=== PATIENT | female | born 1965 | race American Indian/Alaskan Native ===

== ENCOUNTER 2018-07-16 07:20 | Inpatient (IN) | payer MEDICARE ==
[2018-07-16] MEDS ORDERED: NORMODYNE IV ONE ×2 (07:35)
--- NOTE | 2018-07-16 07:37 | Emergency Department Report ---
ED Neuro Deficit HPI - General Stated Complaint: STEMI medics concerned about EKG states GCS is 9 on radio Time Seen by Provider: 07/16/18 07:33 - History of Present Illness Initial Comments: This is a 53-year-old female with a history of insulin dependent diabetes and hypertension but no prior stroke. At 4 in the morning she came down and informed her family that her left tongue and inside of her face felt numb. Thereafter she went to sleep. She had woken up at that time. The time of onset is uncertain. Prior to arrival the patient had stuttering speech and was confused. Medics stated that her pulse oximetry was 80% on their arrival. She was extremely hypertensive. They stated on the radio that her GCS was 9. However, the medics reported that the patient was opening her eyes spontaneously and that she did respond to command and speech. They amended there reported chest stating that she was "altered". I do not think there was a possibility of a GCS of 9. Their main concern appeared to rotate about an EKG shows LVH and J- point elevation. There is no STEMI criteria. Patient was found to have a spot glucose of over 400. Family states that they think the patient took her insulin this morning. They believe that she is compliant with her medicine. However the daughter does not know what medicine she takes. Other than diabetes and hypertension the daughter denied any other medical history or history of stroke. -: During the night Location: left face Presenting Symptoms: Present: Unable to Speak Clearly History of same: No Place: home Severity: moderate Quality: other Improves With: none Worsens With: none On Anticoagulants: No Context: other Associated Symptoms: denies other symptoms (patient is not voicing any active complaints) Treatments Prior to Arrival: other (given aspirin and nitroglycerin by medics) - Related Data Allergies/Adverse Reactions: Allergies Allergy/AdvReac Type Severity Reaction Status Date / Time No Known Allergies Allergy Unverified 07/16/18 07:34 ED Review of Systems ROS: Stated complaint: STEMI Other details as noted in HPI Comment: Unobtainable due to pts medical conditions (patient voicing no complaint however does not complain of headache or other pain. Limited review.) ED Past Medical Hx - Past Medical History Hx Hypertension: Yes Hx Diabetes: Yes - Family History Family history: other (unknown) - Social History Smoking Status: Unknown if ever smoked Substance Use Type: Other (unknown) ED Neuro Physical Exam - General Limitations: Altered Mental Status General appearance: alert, in no apparent distress Suspected Stroke: Yes (stroke is a possibility. Hypertensive encephalopathy is a possibility. Differential diagnosis is wide.) - Head Head exam: Present: atraumatic, normocephalic - Eye Eye exam: Present: normal appearance - ENT ENT exam: Present: mucous membranes moist - Neck Neck exam: Present: normal inspection. Absent: tenderness, meningismus - Respiratory Respiratory exam: Present: normal lung sounds bilaterally. Absent: respiratory distress - Cardiovascular Cardiovascular Exam: Present: regular rate, normal rhythm. Absent: systolic murmur, diastolic murmur, rubs, gallop - GI/Abdominal GI/Abdominal exam: Present: soft, normal bowel sounds. Absent: distended, tenderness, guarding, rebound, rigid - Extremities Exam Extremities exam: Present: normal inspection. Absent: pedal edema, calf tenderness - Back Exam Back exam: Present: normal inspection. Absent: CVA tenderness (R), CVA tenderness (L) - Neurological Exam Neurological exam: Present: alert, oriented X3, CN II-XII intact. Absent: motor sensory deficit - NIHSS Assessment Interval: Baseline 1a. Level of Consciousness: alert/keenly responsive 1b. LOC Questions: answers no questions correctly 1c. LOC Commands: performs tasks correctly 2. Best Gaze: normal 3. Visual: no visual loss 4. Facial Palsy: normal symmetrical movement 5b. Motor Arm Right: no drift 5a. Motor Arm Left: no drift 6a. Motor Leg Left: no drift 6b. Motor Leg Right: no drift 7. Limb Ataxia: absent 8. Sensory: normal 9. Best Language: mild/moderate aphasia 10. Dysarthria: normal 11. Extinction/Inattention: no abnormality Total Score: 3 Stroke Severity: Minor Stroke - Psychiatric Psychiatric exam: Present: normal affect, normal mood - Skin Skin exam: Present: warm, dry, intact, normal color. Absent: rash ED Course Vital Signs 07/16/18 07/16/18 07/16/18 07:29 07:30 07:35 Temperature Pulse Rate 77 Respiratory Rate Blood Pressure 142/112 O2 Sat by Pulse 100 100 Oximetry 07/16/18 07/16/18 07/16/18 07:45 07:50 08:00 Temperature 98.5 F Pulse Rate 74 74 Respiratory 16 22 Rate Blood Pressure 242/112 242/119 226/111 O2 Sat by Pulse 96 97 96 Oximetry 07/16/18 08:16 Temperature Pulse Rate 79 Respiratory 22 Rate Blood Pressure 232/121 O2 Sat by Pulse 97 Oximetry - Reevaluation(s) Reevaluation #1: I spoke with the stroke neurologist Dr. Jameson. He agrees that the patient likely has a hypertensive encephalopathy. He agrees that the patient is not a TPA candidate. Consult Dr. Groves ICU attending. Admit to hospitalist service. 07/16/18 08:44 Reevaluation #2: Spoke with hospitalist admit ICU page nephrology. Patient will be given a small dose of IV insulin. He do not think she is in DKA. I do not have a baseline creatinine. Further care in the intensive care unit. Sushant reece. 07/16/18 09:02 07/16/18 09:03 - Lab Data Result diagrams: 07/16/18 07:48 07/16/18 08:18 Lab Results 07/16/18 07/16/18 07/16/18 Range/Units 07:35 07:48 07:48 WBC 7.9 (4.5-11.0) K/mm3 RBC 4.27 (3.65-5.03) M/mm3 Hgb 13.1 (10.1-14.3) gm/dl Hct 39.9 (30.3-42.9) % MCV 93 (79-97) fl MCH 31 (28-32) pg MCHC 33 (30-34) % RDW 13.7 (13.2-15.2) % Plt Count 242 (140-440) K/mm3 Lymph % (Auto) 26.0 (13.4-35.0) % Pitkin % (Auto) 4.6 (0.0-7.3) % Eos % (Auto) 0.8 (0.0-4.3) % Baso % (Auto) 0.9 (0.0-1.8) % Lymph # 2.0 (1.2-5.4) K/mm3 Pitkin # 0.4 (0.0-0.8) K/mm3 Eos # 0.1 (0.0-0.4) K/mm3 Baso # 0.1 (0.0-0.1) K/mm3 Seg Neutrophils % 67.7 (40.0-70.0) % Seg Neutrophils # 5.3 (1.8-7.7) K/mm3 PT 12.5 (12.2-14.9) Sec. INR 0.90 (0.87-1.13) APTT 20.3 L (24.2-36.6) Sec. Thrombin Time 17.4 (15.1-19.6) Sec. Sodium (137-145) mmol/L Potassium (3.6-5.0) mmol/L Chloride (98-107) mmol/L Carbon Dioxide (22-30) mmol/L Anion Gap mmol/L BUN (7-17) mg/dL Creatinine (0.7-1.2) mg/dL Estimated GFR ml/min BUN/Creatinine Ratio % Glucose (65-100) mg/dL POC Glucose 430 H (70-105) Calcium (8.4-10.2) mg/dL Magnesium (1.7-2.3) mg/dL Total Bilirubin (0.1-1.2) mg/dL Direct Bilirubin (0-0.2) mg/dL Indirect Bilirubin mg/dL AST (5-40) units/L ALT (7-56) units/L Alkaline Phosphatase (35-129) units/L CK-MB (CK-2) (0.0-4.0) ng/mL Troponin T (0.00-0.029) ng/mL NT-Pro-B Natriuret Pep (0-900) pg/mL Total Protein (6.3-8.2) g/dL Albumin (3.9-5) g/dL Albumin/Globulin Ratio % 07/16/18 Range/Units 08:18 WBC (4.5-11.0) K/mm3 RBC (3.65-5.03) M/mm3 Hgb (10.1-14.3) gm/dl Hct (30.3-42.9) % MCV (79-97) fl MCH (28-32) pg MCHC (30-34) % RDW (13.2-15.2) % Plt Count (140-440) K/mm3 Lymph % (Auto) (13.4-35.0) % Pitkin % (Auto) (0.0-7.3) % Eos % (Auto) (0.0-4.3) % Baso % (Auto) (0.0-1.8) % Lymph # (1.2-5.4) K/mm3 Pitkin # (0.0-0.8) K/mm3 Eos # (0.0-0.4) K/mm3 Baso # (0.0-0.1) K/mm3 Seg Neutrophils % (40.0-70.0) % Seg Neutrophils # (1.8-7.7) K/mm3 PT (12.2-14.9) Sec. INR (0.87-1.13) APTT (24.2-36.6) Sec. Thrombin Time (15.1-19.6) Sec. Sodium 139 (137-145) mmol/L Potassium 4.9 (3.6-5.0) mmol/L Chloride 104.4 (98-107) mmol/L Carbon Dioxide 20 L (22-30) mmol/L Anion Gap 20 mmol/L BUN 42 H (7-17) mg/dL Creatinine 5.2 H (0.7-1.2) mg/dL Estimated GFR 9 ml/min BUN/Creatinine Ratio 8 % Glucose 479 H (65-100) mg/dL POC Glucose (70-105) Calcium 8.7 (8.4-10.2) mg/dL Magnesium 1.40 L (1.7-2.3) mg/dL Total Bilirubin 0.20 (0.1-1.2) mg/dL Direct Bilirubin < 0.2 (0-0.2) mg/dL Indirect Bilirubin 0.0 mg/dL AST 9 (5-40) units/L ALT 8 (7-56) units/L Alkaline Phosphatase 112 (35-129) units/L CK-MB (CK-2) 2.6 (0.0-4.0) ng/mL Troponin T < 0.010 (0.00-0.029) ng/mL NT-Pro-B Natriuret Pep 5728 H (0-900) pg/mL Total Protein 6.7 (6.3-8.2) g/dL Albumin 2.9 L (3.9-5) g/dL Albumin/Globulin Ratio 0.8 % Laboratory Results - last 24 hr 07/16/18 07/16/18 07/16/18 07:35 07:48 07:48 WBC 7.9 RBC 4.27 Hgb 13.1 Hct 39.9 MCV 93 MCH 31 MCHC 33 RDW 13.7 Plt Count 242 Lymph % (Auto) 26.0 Pitkin % (Auto) 4.6 Eos % (Auto) 0.8 Baso % (Auto) 0.9 Lymph # 2.0 Pitkin # 0.4 Eos # 0.1 Baso # 0.1 Seg Neutrophils % 67.7 Seg Neutrophils # 5.3 PT 12.5 INR 0.90 APTT 20.3 L Thrombin Time 17.4 POC Glucose 430 H Laboratory Results - last 24 hr 07/16/18 07/16/18 07/16/18 07:35 07:48 07:48 WBC 7.9 RBC 4.27 Hgb 13.1 Hct 39.9 MCV 93 MCH 31 MCHC 33 RDW 13.7 Plt Count 242 Lymph % (Auto) 26.0 Pitkin % (Auto) 4.6 Eos % (Auto) 0.8 Baso % (Auto) 0.9 Lymph # 2.0 Pitkin # 0.4 Eos # 0.1 Baso # 0.1 Seg Neutrophils % 67.7 Seg Neutrophils # 5.3 PT 12.5 INR 0.90 APTT 20.3 L Thrombin Time 17.4 POC Glucose 430 H Critical Care Time: Yes Critical care time in (mins) excluding proc time.: 60 Critical care attestation.: If time is entered above; I have spent that time in minutes in the direct care of this critically ill patient, excluding procedure time. ED Disposition Clinical Impression: Hypertensive encephalopathy, Malignant hypertension, Acute renal injury, Renal insufficiency, Insulin dependent diabetes mellitus Disposition: OP ADMIT IP TO THIS HOSP Is pt being admited?: Yes Does the pt Need Aspirin: Yes Condition: Stable Instructions: Hypertension (ED), Diabetes Mellitus Type 2 in Adults (ED) Time of Disposition: 09:04
--- NOTE | 2018-07-16 07:49 | Cat Scan Report ---
CT HEAD WITHOUT CONTRAST: HISTORY: Neurological deficit, stroke. TECHNIQUE: Sequential 2.5mm CT images. COMPARISON: none. FINDINGS: Cerebral Parenchyma: There is mild hypoattenuation throughout the white matter consistent with nonspecific chronic small vessel disease. A subcentimeter focal chronic infarct is identified in the left rendon radiata on image 41. The remainder of the brain parenchyma is within normal limits. Cerebellum: Within normal limits. Brainstem: Within normal limits. Ventricles: Normal. Sella: Normal. Extra-axial spaces: Normal. Basal Cisterns: Normal. Intracranial Hemorrhage: None. Midline Shift: None. Calvarium: Normal. Sinuses: Normal. Mastoid Air Cells: Normal. Visualized Orbits: Normal. IMPRESSION: Mild nonspecific chronic white matter changes. Chronic focal infarcts in the left rendon radiata. No acute intracranial process identified. These findings were discussed with Dr. Leigh in the emergency department at 0743 hours.
--- NOTE | 2018-07-16 07:56 | XRay Report ---
AP CHEST: HISTORY: Hypertension Borderline to mild cardiomegaly is suspected. Central pulmonary vessels are slightly prominent. The lungs are clear. No evidence for pneumonia, pleural fluid or pneumothorax. The bony structures are within normal limits. IMPRESSION: Borderline heart size. Lungs clear.
[2018-07-16 08:02] LABS: Basophils # (Auto) 0.1 K/mm3 (0.0-0.1); Basophils % (Auto) 0.9 % (0.0-1.8); Eosinophils # (Auto) 0.1 K/mm3 (0.0-0.4); Eosinophils % (Auto) 0.8 % (0.0-4.3); Hematocrit 39.9 % (30.3-42.9); Hemoglobin 13.1 gm/dl (10.1-14.3); Mean Corpuscular HGB Conc 33 % (30-34); Mean Corpuscular Volume 93 fl (79-97); Monocytes # (Auto) 0.4 K/mm3 (0.0-0.8); Monocytes % (Auto) 4.6 % (0.0-7.3); Platelet Count 242 K/mm3 (140-440); Red Blood Count 4.27 M/mm3 (3.65-5.03); Red Cell Distribution Width 13.7 % (13.2-15.2)
[2018-07-16 08:12] LABS: INR 0.9 (0.87-1.13); Partial Thromboplastin Time 20.3 Sec. (24.2-36.6)
[2018-07-16 08:13] LABS: Thrombin Time 17.4 Sec. (15.1-19.6)
[2018-07-16 08:55] LABS: Creatine Kinase MB 2.6 ng/mL (0.0-4.0)
[2018-07-16 08:57] LABS: Alanine Aminotransferase 8 units/L (7-56); Albumin 2.9 g/dL (3.9-5); BUN/Creatinine Ratio 8; Blood Urea Nitrogen 42 mg/dL (7-17); Calcium 8.7 mg/dL (8.4-10.2); Hemolysis Index 14
[2018-07-16 08:58] LABS: Bilirubin,Direct < 0.2 mg/dL (0-0.2)
[2018-07-16] MEDS ORDERED: ASPIRIN PO ONE (09:05)
[2018-07-16] MEDS ORDERED: HumuLIN R IV ONE (09:07)
[2018-07-16] MEDS: CARDENE 50 MG in NACL 0.9% 250ML 230 ML IV SCH (09:35)
[2018-07-16] MEDS ORDERED: HumuLIN R ONE (10:43)
[2018-07-16] MEDS ORDERED: ASPIRIN ONE (10:43)
[2018-07-16] MEDS ORDERED: MAGNESIUM SULFATE IV ONE (10:51)
--- NOTE | 2018-07-16 10:54 | History and Physical Report ---
History of Present Illness Date of examination: 07/16/18 Date of admission: 07/16/18 09:06 Chief complaint: AMS History of present illness: This is a 53-year-old -[place] female with a past medical history of hypertension, diabetes on insulin, and renal cell carcinoma status post right total nephrectomy in 2013, follows nephrology at [facility], presented to the emergency room department secondary to altered mental status, difficulty in speech, and perioral numbness associated with elevated blood pressure. In the ER CT scan of the head did not show any acute abnormalities. Per daughter patient does not take her medication on regular basis. 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 She was started on Cardene drip in the ER, her mental status has improved back to baseline and she is able to answer questions during examination and does not have any focal deficit. She is being admitted for further evaluation and management. . Past History Past Medical History: diabetes, hypertension, hyperlipidemia, renal failure Past Surgical History: Other (right nephrectomy ) Social history: no significant social history, lives with family Family history: diabetes, hypertension Medications and Allergies Allergies Allergy/AdvReac Type Severity Reaction Status Date / Time No Known Allergies Allergy Unverified 07/16/18 07:34 Home Medications Medication Instructions Recorded Confirmed Last Taken Type Calcitriol [Rocaltrol] 0.25 mcg PO DAILY 07/16/18 07/16/18 Unknown History Insulin Detemir [Levemir VIAL] 15 unit SQ QHS 07/16/18 07/16/18 Unknown History Lispro Insulin [Humalog] 10 unit SQ DAILY 07/16/18 07/16/18 Unknown History Metoprolol Succinate [Toprol Xl] 200 mg PO DAILY 07/16/18 07/16/18 Unknown History NIFEdipine [Nifedipine ER] 60 mg PO DAILY 07/16/18 07/16/18 Unknown History Spironolactone [Aldactone] 50 mg PO QDAY 07/16/18 07/16/18 Unknown History Active Meds: Active Medications Nicardipine HCl 50 mg/ Sodium (Chloride) 250 mls @ 25 mls/hr IV TITR KJ; Protocol Last Admin: 07/16/18 09:35 Dose: 5 mg/hr, 25 mls/hr Documented by: Magnesium Sulfate (Magnesium Sulfate) 1 gm IV ONCE ONE Stop: 07/16/18 10:52 Review of Systems Constitutional: fatigue, no weight loss, no fever, no chills, no anorexia Ears, nose, mouth and throat: no ear discharge, no decreased hearing, no nasal congestion, no nasal discharge, no epistaxis Cardiovascular: no chest pain, no orthopnea, no palpitations, no lightheadedness Respiratory: no cough, no dyspnea on exertion Gastrointestinal: no abdominal pain, no nausea, no vomiting, no diarrhea, no hematochezia Genitourinary Female: no pelvic pain, no flank pain, no menorrhagia, no urinary frequency, no urgency Rectal: no pain Musculoskeletal: no neck pain, no low back pain Integumentary: no rash Neurological: change in speech, confusion Psychiatric: no anxiety, no memory loss Endocrine: no cold intolerance, no heat intolerance Hematologic/Lymphatic: no easy bruising, no easy bleeding Allergic/Immunologic: no urticaria, no allergic rhinitis Exam - Physical Exam Narrative exam: General appearance: well-developed, well-nourished, appears stated age EENT: ATNC, PERRL Neck: Present: neck supple, trachea midline Respiratory: Clear to Ascultation, Normal Exam Heart: regular, S1S2 Gastrointestinal: Present: normal, normoactive bowel sounds Integumentary: no rash, warm and dry Neurologic: no focal deficit, no asterixis, alert and oriented x3 Musculoskeletal: Present: other (-edema ) Psychiatric: mood/affect appropriate, cooperative - Constitutional Vitals: Temp Pulse Resp BP Pulse Ox 98.5 F 87 22 178/89 95 07/16/18 07:45 07/16/18 09:45 07/16/18 09:45 07/16/18 09:45 07/16/18 09:45 Results - Labs CBC & Chem 7: 07/17/18 04:49 07/17/18 04:49 Labs: Abnormal lab results 07/16/18 07/16/18 07/16/18 Range/Units 07:35 07:48 08:18 APTT 20.3 L (24.2-36.6) Sec. Carbon Dioxide 20 L (22-30) mmol/L BUN 42 H (7-17) mg/dL Creatinine 5.2 H (0.7-1.2) mg/dL Glucose 479 H (65-100) mg/dL POC Glucose 430 H (70-105) Magnesium 1.40 L (1.7-2.3) mg/dL NT-Pro-B Natriuret Pep 5728 H (0-900) pg/mL Albumin 2.9 L (3.9-5) g/dL Assessment and Plan Hypertensive encephalopathy - mental status now back to baseline, CT head unremarkable, cont to monitor BP Malignant HTN (BP 242/119 - POA) - wean off cadene drip as tolerated to keep SBP 160- 180 - resume home meds DM type 2 uncontrolled with hyperglycemia - Iv fluid, SSI and place on lentus home dose HLD, start on statin h/o renal cancer s/p right nephrectomy - order renal US, supportive care KYLEIGH on CKD stage 4/5 - monitor renal function, hold nephrotoxins, consulted renal DVT Px, heparin The high probability of a clinically significant, sudden or life threatening deterioration of the [CVS, renal] system(s) required my full and direct attention, intervention and personal management. The aggregate critical care time was [42] minutes. This time is in addition to time spent performing reported procedures but includes the following: [x] Data Review and interpretation [x] Patient assessment and monitoring of vital signs [x] Documentation [x] Medication orders and management
[2018-07-16] MEDS ORDERED: NACL 0.9% IV SCH (11:00)
[2018-07-16] MEDS ORDERED: MAGNESIUM SULFATE 1 GM in NACL 0.9% 50 ML IV ONE (11:00)
[2018-07-16 11:13] LABS: Bacteria,Urine 1+ /HPF (Negative); Bilirubin,Urine NEG (Negative); Blood,Urine NEG (Negative); Color,Urine Straw (Yellow); Protein,Urine >2000 mg dL mg/dL (Negative); Urobilinogen,Urine < 2.0 mg/dL (<2.0); WBC,Urine < 1.0 /HPF (0.0-6.0)
[2018-07-16 11:15] LABS: Amphetamine Screen,Urine PRESUMPTIVE NEGATIVE; Benzodiazepines Screen,Urine PRESUMPTIVE NEGATIVE; Cannabinoid Screen,Urine PRESUMPTIVE NEGATIVE; Cocaine Screen,Urine PRESUMPTIVE NEGATIVE; Methadone Screen,Urine PRESUMPTIVE NEGATIVE; Opiate Screen,Urine PRESUMPTIVE NEGATIVE
--- NOTE | 2018-07-16 11:24 | Consultation ---
History of Present Illness - Reason for Consult acute renal failure, chronic renal failure, accelerated hypertension - History of Present Illness This is a very pleasant 53-year-old -Ang[place] female with a past medical history of hypertension, diabetes, and apparent renal cell carcinoma status post right total nephrectomy in 2013 per patient, who does see nephrology at [facility], presented to the emergency room department secondary to altered mental status, dysarthria, and perioral numbness associated with accelerated hypertension. She is being treated for hypertensive emergency and encephalopathy, and is currently on Cardene drip. Her altered mental status has improved back to baseline and sh cassi is able to answer questions during examination. CT scan of the head did not show any acute abnormalities. Nephrology is being asked to see patient for her acute kidney injury. Per patient she has had previous discussion of initiating dialysis in the near future with her drill press set up operator. She unfortunately does not remember the name of the drill press set up operator that she was seen at [facility]. She states that she last saw her drill press set up operator less than 1 month ago. In regards to her blood pressure control she unfortunately has been missing doses of her medication. She also is on chronic insulin therapy for diabetic control. Past History Past Medical History: diabetes, hypertension, hyperlipidemia, renal failure Past Surgical History: Other (right nephrectomy ) Social history: no significant social history, lives with family Family history: diabetes, hypertension Medications and Allergies Allergies Allergy/AdvReac Type Severity Reaction Status Date / Time No Known Allergies Allergy Unverified 07/16/18 07:34 Home Medications Medication Instructions Recorded Confirmed Last Taken Type Calcitriol [Rocaltrol] 0.25 mcg PO DAILY 07/16/18 07/16/18 Unknown History Insulin Detemir [Levemir VIAL] 15 unit SQ QHS 07/16/18 07/16/18 Unknown History Lispro Insulin [Humalog] 10 unit SQ DAILY 07/16/18 07/16/18 Unknown History Metoprolol Succinate [Toprol Xl] 200 mg PO DAILY 07/16/18 07/16/18 Unknown History NIFEdipine [Nifedipine ER] 60 mg PO DAILY 07/16/18 07/16/18 Unknown History Spironolactone [Aldactone] 50 mg PO QDAY 07/16/18 07/16/18 Unknown History Active Meds: Active Medications Nicardipine HCl 50 mg/ Sodium (Chloride) 250 mls @ 25 mls/hr IV TITR KJ; Protocol Last Admin: 07/16/18 09:35 Dose: 5 mg/hr, 25 mls/hr Documented by: Magnesium Sulfate 1 gm/ Sodium (Chloride) 52 mls @ 52 mls/hr IV ONCE ONE Stop: 07/16/18 11:59 Sodium Chloride (Nacl 0.9%) 0 ml IV DIRECT KJ Review of Systems All systems: negative Constitutional: fatigue, weakness Cardiovascular: high blood pressure Neurological: change in speech, change in mentation, confusion Exam - Vital Signs Vital signs: Vital Signs Pulse Ox 100 07/16/18 07:29 - General Appearance General appearance: well-developed, well-nourished, appears stated age EENT: ATNC, PERRL Neck: Present: neck supple, trachea midline Respiratory: Clear to Ascultation, Normal Exam Heart: regular, S1S2 Gastrointestinal: Present: normal, normoactive bowel sounds Integumentary: no rash, warm and dry Neurologic: no focal deficit, no asterixis, alert and oriented x3 Musculoskeletal: Present: other (-edema ) Psychiatric: mood/affect appropriate, cooperative Results - Lab Results 07/16/18 07:48 07/16/18 08:18 Most recent lab results Calcium 8.7 mg/dL (8.4-10.2) 07/16/18 08:18 Magnesium 1.40 mg/dL (1.7-2.3) L 07/16/18 08:18 - Image Kidney/bladder ultrasound: pending Assessment and Plan - Patient Problems (1) Acute on chronic kidney failure Current Visit: Yes Status: Acute Plan to address problem: Patient has acute on chronic kidney disease secondary to hypertensive emergency and malignant hypertension. Will obtain renal ultrasound at this time and will also order urine electrolytes studies. Also ordered urinalysis for further evaluation. Avoid nephrotoxins. Monitor renal function daily. No acute indications for hemodialysis at present time. Need to strictly monitor her intake and urine output at this time. (2) Hypertensive encephalopathy Current Visit: Yes Status: Acute Plan to address problem: Mental status has improved at this time since admission. CT scan of head noted without any acute abnormalities. We'll continue to monitor. (3) Malignant hypertension Current Visit: Yes Status: Acute Plan to address problem: Currently on Cardene drip. Once stable will favor to transition back to oral antihypertensive therapy. (4) Metabolic acidosis Current Visit: Yes Status: Acute Plan to address problem: We'll start patient on sodium bicarbonate tablets 1 pill by mouth 3 times a day with meals. (5) Insulin dependent diabetes mellitus Current Visit: Yes Status: Acute Plan to address problem: Diabetes management per primary team.
--- NOTE | 2018-07-16 12:21 | Ultrasound Report ---
ULTRASOUND RENAL BILATERAL HISTORY: Acute renal insufficiency, hypertension. TECHNIQUE: transabdominal ultrasound with color Doppler interrogation. COMPARISON: none. FINDINGS: Patient reports a history of right nephrectomy in 2013. The right kidney is not identified. The left kidney measures 9.6 x 5.0 x 4.8cm. Left renal cortex: 1.6cm. The left kidney is normal size, contour and position. There is increased renal cortical echotexture bilaterally consistent with nonspecific renal parenchymal disease. Corticomedullary differentiation is preserved. No evidence for cystic disease, mass, nephrolithiasis, hydronephrosis or perinephric fluid. The views of the bladder and the region of the ureters appear normal. IMPRESSION: Right nephrectomy. The left kidney is normal size but demonstrates mild increased cortical echotexture consistent with nonspecific renal parenchymal disease. No focal left renal lesion or hydronephrosis.
--- NOTE | 2018-07-16 12:58 | Consultation ---
History of Present Illness - Reason for Consult Consult date: 07/16/18 Hypertensive Emergency Requesting physician: MARCO GREY - History of Present Illness 53 y/o female with history of noncompliance with medical therapy admitted for altered mental state and hypertensive emergency. Past History Past Medical History: diabetes, hypertension, hyperlipidemia, renal failure Past Surgical History: Other (right nephrectomy ) Social history: no significant social history, lives with family Family history: diabetes, hypertension Medications and Allergies Allergies Allergy/AdvReac Type Severity Reaction Status Date / Time No Known Allergies Allergy Unverified 07/16/18 07:34 Home Medications Medication Instructions Recorded Confirmed Last Taken Type Calcitriol [Rocaltrol] 0.25 mcg PO DAILY 07/16/18 07/16/18 Unknown History Insulin Detemir [Levemir VIAL] 15 unit SQ QHS 07/16/18 07/16/18 Unknown History Lispro Insulin [Humalog] 10 unit SQ DAILY 07/16/18 07/16/18 Unknown History Metoprolol Succinate [Toprol Xl] 200 mg PO DAILY 07/16/18 07/16/18 Unknown History NIFEdipine [Nifedipine ER] 60 mg PO DAILY 07/16/18 07/16/18 Unknown History Spironolactone [Aldactone] 50 mg PO QDAY 07/16/18 07/16/18 Unknown History Active Meds: Active Medications Nicardipine HCl 50 mg/ Sodium (Chloride) 250 mls @ 25 mls/hr IV TITR KJ; Protocol Last Admin: 07/16/18 09:35 Dose: 5 mg/hr, 25 mls/hr Documented by: Sodium Chloride (Nacl 0.9%) 0 ml IV DIRECT KJ Review of Systems All systems: negative Exam - Constitutional Vitals: Temp Pulse Resp BP Pulse Ox 98.5 F 86 22 157/87 92 07/16/18 10:54 07/16/18 12:16 07/16/18 12:16 07/16/18 12:16 07/16/18 12:12 General appearance: Present: no acute distress, well-nourished, obese - EENT Eyes: Present: PERRL ENT: poor dentition - Neck Neck: Present: supple - Respiratory Respiratory effort: normal Respiratory: bilateral: CTA - Cardiovascular Rhythm: regular - Abdominal General gastrointestinal: Present: soft, non-tender Female genitourinary: Present: deferred - Rectal Rectal Exam: deferred Results - Labs CBC & Chem 7: 07/17/18 04:49 07/17/18 04:49 Labs: Abnormal lab results 07/16/18 07/16/18 07/16/18 Range/Units 07:35 07:48 08:18 APTT 20.3 L (24.2-36.6) Sec. Carbon Dioxide 20 L (22-30) mmol/L BUN 42 H (7-17) mg/dL Creatinine 5.2 H (0.7-1.2) mg/dL Glucose 479 H (65-100) mg/dL POC Glucose 430 H (70-105) Magnesium 1.40 L (1.7-2.3) mg/dL NT-Pro-B Natriuret Pep 5728 H (0-900) pg/mL Albumin 2.9 L (3.9-5) g/dL 07/16/18 Range/Units 11:44 APTT (24.2-36.6) Sec. Carbon Dioxide (22-30) mmol/L BUN (7-17) mg/dL Creatinine (0.7-1.2) mg/dL Glucose (65-100) mg/dL POC Glucose 375 H (70-105) Magnesium (1.7-2.3) mg/dL NT-Pro-B Natriuret Pep (0-900) pg/mL Albumin (3.9-5) g/dL - Imaging and Cardiology Chest x-ray: image reviewed CT Scan - head: report reviewed Assessment and Plan 53 y/o female with altered mental status secondary to Hypertensive Emergency, Hypertensive encephalopathy from noncompliance with anti-hypertensive therapy. 1. Goal to lower BP by 25% in the first 24 hours 2. Agree with restarting oral home medication in addition with drip and wean drip accordingly 3. Follow up renal recs. 4. Encephalopathy likely PRES, now resolving that BP is better controlled. Can likely hold off on MRI and neurology consult at this time. CCT 31 minutes.
[2018-07-16 14:53] LABS: Chloride, Urine 90.9 mmolL (110-250); Creatinine,Urine 43.5 mg/dL (0.1-20.0)
[2018-07-16] MEDS: HumuLIN R SUB-Q SCH ×2 (17:49→22:51)
[2018-07-16] MEDS ORDERED: METOPROLOL SUCCINATE 200 MG PO SCH (18:18)
[2018-07-16] MEDS ORDERED: INSULIN DETEMIR 15 UNIT SQ SCH (22:00)
[2018-07-16] MEDS: LANTUS SUB-Q SCH (22:52)
[2018-07-17 05:28] LABS: Basophils % (Auto) 0.6 % (0.0-1.8); Eosinophils # (Auto) 0.2 K/mm3 (0.0-0.4); Eosinophils % (Auto) 2.7 % (0.0-4.3); Hematocrit 36.6 % (30.3-42.9); Hemoglobin 12.2 gm/dl (10.1-14.3); Lymphocytes # (Auto) 2.6 K/mm3 (1.2-5.4); Lymphocytes % (Auto) 40.1 % (13.4-35.0); Mean Corpuscular HGB Conc 33 % (30-34); Mean Corpuscular Volume 91 fl (79-97); Monocytes # (Auto) 0.5 K/mm3 (0.0-0.8); Monocytes % (Auto) 7.9 % (0.0-7.3); Platelet Count 213 K/mm3 (140-440); Red Blood Count 4.01 M/mm3 (3.65-5.03); Red Cell Distribution Width 13.3 % (13.2-15.2)
[2018-07-17 05:44] LABS: Calcium 8.6 mg/dL (8.4-10.2)
[2018-07-17] MEDS: CARDENE 50 MG in NACL 0.9% 250ML 230 ML IV SCH (07:03)
--- NOTE | 2018-07-17 07:38 | Progress Note ---
Assessment and Plan - Patient Problems (1) Acute on chronic kidney failure Current Visit: Yes Status: Acute Plan to address problem: Patient has acute on chronic kidney disease secondary to hypertensive emergency and malignant hypertension. Damaris HYATT noted at this time. UA and urine electrolyte results reviewed. Will obtain UPC. Avoid nephrotoxins. Monitor renal function daily. No acute indications for hemodialysis at present time. Need to strictly monitor her intake and urine output at this time. (2) Hypertensive encephalopathy Current Visit: Yes Status: Acute Plan to address problem: Mental status has improved at this time since admission. CT scan of head noted without any acute abnormalities. We'll continue to monitor. (3) Malignant hypertension Current Visit: Yes Status: Acute Plan to address problem: Currently on Cardene drip. Once stable will favor to transition back to oral antihypertensive therapy. Patient to have grandson bring in complete home medication list. (4) Metabolic acidosis Current Visit: Yes Status: Acute Plan to address problem: We'll start patient on sodium bicarbonate tablets 1 pill by mouth 3 times a day with meals. (5) Insulin dependent diabetes mellitus Current Visit: Yes Status: Acute Plan to address problem: Diabetes management per primary team. Subjective Date of service: 07/17/18 Interval history: No acute events overnight, was temporarily off cardene gtt overnigth, but it has been restarted over the past hour. Labs noted, and renal labs are stable. No acute HD indications at present time. Pending for patient to have family bring in complete medication list . Objective - Vital Signs Vital signs: Vital Signs - 12hr 07/16/18 07/16/18 07/16/18 19:45 20:00 20:15 Temperature 98.7 F Pulse Rate 79 91 H 81 Respiratory 18 19 15 Rate Blood Pressure 150/79 143/87 152/89 O2 Sat by Pulse 95 96 97 Oximetry 07/16/18 07/16/18 07/16/18 20:30 20:32 20:45 Temperature Pulse Rate 81 77 Respiratory 17 19 Rate Blood Pressure 154/64 147/72 O2 Sat by Pulse 96 95 96 Oximetry 07/16/18 07/16/18 07/16/18 21:01 21:15 21:30 Temperature Pulse Rate 91 H 76 81 Respiratory 16 18 20 Rate Blood Pressure 147/72 174/87 162/84 O2 Sat by Pulse 96 97 96 Oximetry 07/16/18 07/16/18 07/16/18 21:45 22:00 22:15 Temperature Pulse Rate 77 82 76 Respiratory 19 18 12 Rate Blood Pressure 156/80 148/81 162/79 O2 Sat by Pulse 95 96 95 Oximetry 07/16/18 07/16/18 07/16/18 22:23 22:30 22:45 Temperature Pulse Rate 78 78 79 Respiratory 20 19 18 Rate Blood Pressure 162/79 146/74 148/77 O2 Sat by Pulse 95 95 95 Oximetry 07/16/18 07/16/18 07/16/18 23:00 23:15 23:30 Temperature Pulse Rate 79 80 80 Respiratory 22 20 20 Rate Blood Pressure 161/75 163/81 156/80 O2 Sat by Pulse 96 96 95 Oximetry 07/16/18 07/17/18 07/17/18 23:45 00:00 00:15 Temperature 98.6 F Pulse Rate 79 80 83 Respiratory 20 20 20 Rate Blood Pressure 147/75 165/75 148/78 O2 Sat by Pulse 95 96 95 Oximetry 07/17/18 07/17/18 07/17/18 00:31 00:45 01:00 Temperature Pulse Rate 93 H 78 79 Respiratory 23 18 19 Rate Blood Pressure 148/78 145/86 164/89 O2 Sat by Pulse 96 97 95 Oximetry 07/17/18 07/17/18 07/17/18 01:15 01:30 01:45 Temperature Pulse Rate 73 81 77 Respiratory 19 20 19 Rate Blood Pressure 139/69 153/72 164/65 O2 Sat by Pulse 97 94 95 Oximetry 07/17/18 07/17/18 07/17/18 02:00 02:15 02:30 Temperature Pulse Rate 77 77 76 Respiratory 20 19 19 Rate Blood Pressure 167/84 147/81 161/83 O2 Sat by Pulse 95 96 94 Oximetry 07/17/18 07/17/18 07/17/18 02:45 03:01 03:15 Temperature Pulse Rate 76 82 73 Respiratory 19 18 15 Rate Blood Pressure 174/84 174/84 155/78 O2 Sat by Pulse 94 96 97 Oximetry 07/17/18 07/17/18 07/17/18 03:30 03:45 04:00 Temperature 98.4 F Pulse Rate 70 72 70 Respiratory 9 L 14 18 Rate Blood Pressure 157/78 157/84 156/70 O2 Sat by Pulse 97 98 96 Oximetry 07/17/18 07/17/18 07/17/18 04:15 04:30 04:45 Temperature Pulse Rate 72 72 79 Respiratory 18 19 17 Rate Blood Pressure 169/79 161/65 151/72 O2 Sat by Pulse 97 96 93 Oximetry 07/17/18 07/17/18 07/17/18 05:00 05:15 05:30 Temperature Pulse Rate 74 76 76 Respiratory 18 20 16 Rate Blood Pressure 177/90 175/90 156/86 O2 Sat by Pulse 96 96 96 Oximetry 07/17/18 07/17/18 07/17/18 05:45 06:00 06:15 Temperature Pulse Rate 76 77 78 Respiratory 17 17 17 Rate Blood Pressure 181/93 179/91 206/96 O2 Sat by Pulse 96 94 97 Oximetry 07/17/18 07/17/18 07/17/18 06:31 06:45 07:01 Temperature Pulse Rate 80 74 80 Respiratory 17 17 16 Rate Blood Pressure 190/90 196/93 173/90 O2 Sat by Pulse 95 97 97 Oximetry 07/17/18 07:15 Temperature Pulse Rate 86 Respiratory 17 Rate Blood Pressure 182/84 O2 Sat by Pulse 97 Oximetry - General Appearance General appearance: well-developed, well-nourished, appears stated age EENT: ATNC, PERRL Neck: no JVD, no thyromegaly Respiratory: Present: Clear to Ascultation, Normal Exam Cardiology: regular, S1S2 Gastrointestinal: normal, normoactive bowel sounds Integumentary: no rash, warm and dry Neurologic: no focal deficit, no asterixis, alert and oriented x3 Musculoskeletal: other (-edema ) Psychiatric: mood/affect appropriate, cooperative - Lab 07/17/18 04:49 07/17/18 04:49 Most recent lab results Calcium 8.6 mg/dL (8.4-10.2) 07/17/18 04:49 Magnesium 1.40 mg/dL (1.7-2.3) L 07/16/18 08:18 Urine Creatinine 43.5 mg/dL (0.1-20.0) H 07/16/18 Unknown Urine Sodium 93 mmol/L 07/16/18 Unknown - Imaging Chest x-ray: report reviewed Kidney/bladder ultrasound: report reviewed - Allied health notes Allied health notes reviewed: nursing Medications & Allergies - Medications Allergies/Adverse Reactions: Allergies No Known Allergies Allergy (Unverified 07/16/18 07:34) Home Medications: Home Medications Medication Instructions Recorded Confirmed Last Taken Type Calcitriol [Rocaltrol] 0.25 mcg PO DAILY 07/16/18 07/16/18 Unknown History Insulin Detemir [Levemir VIAL] 15 unit SQ QHS 07/16/18 07/16/18 Unknown History Lispro Insulin [Humalog] 10 unit SQ DAILY 07/16/18 07/16/18 Unknown History Metoprolol Succinate [Toprol Xl] 200 mg PO DAILY 07/16/18 07/16/18 Unknown History NIFEdipine [Nifedipine ER] 60 mg PO DAILY 07/16/18 07/16/18 Unknown History Spironolactone [Aldactone] 50 mg PO QDAY 07/16/18 07/16/18 Unknown History Active Medications: Generic Name Dose Route Start Last Admin Trade Name Freq PRN Reason Stop Dose Admin Aspirin 325 mg 07/17/18 10:00 Aspirin PO QDAY [facility] Atorvastatin Calcium 40 mg 07/16/18 22:00 07/16/18 22:52 Lipitor PO 40 mg QHS KJ Administration Calcitriol 0.25 mcg 07/17/18 10:00 Rocaltrol PO DAILY KJ Nicardipine HCl 50 mg/ Sodium 250 mls @ 25 mls/hr 07/16/18 09:00 07/17/18 07:03 Chloride IV 5 mg/hr TITR KJ 25 mls/hr Administration Protocol 5 MG/HR Insulin Glargine 14 units 07/16/18 22:00 07/16/18 22:52 Lantus SUB-Q 14 units QHS [facility] Administration Insulin Human Regular 0 units 07/16/18 16:30 07/16/18 22:51 Humulin R SUB-Q 2 units ACHS KJ Administration Protocol Metoprolol Succinate 200 mg 07/17/18 10:00 Toprol Xl PO QDAY KJ Nifedipine 60 mg 07/17/18 10:00 Procardia Xl PO DAILY [facility] Sodium Chloride 0 ml 07/16/18 11:00 Nacl 0.9% IV DIRECT KJ
[2018-07-17] MEDS ORDERED: ASPIRIN PO SCH (10:00)
[2018-07-17] MEDS: HumuLIN R SUB-Q SCH ×4 (10:33→22:30)
[2018-07-17] MEDS: PROCARDIA XL PO SCH (11:01)
[2018-07-17] MEDS: TOPROL XL PO SCH (11:01)
[2018-07-17] MEDS: ROCALTROL PO SCH (11:02)
--- NOTE | 2018-07-17 12:09 | Progress Note ---
Assessment and Plan 53 y/o female with altered mental status secondary to Hypertensive Emergency, Hypertensive encephalopathy from noncompliance with anti-hypertensive therapy. 1. Drip OFF, restarting home medications now. Daughters to bring in meds to confirm accurate dosing. 2. Monitor off drip, if no requirement by later afternoon, stable for transfer out of unit. 3. Follow up renal recs. 4. Encephalopathy likely PRES, now resolving that BP is better controlled. Can likely hold off on MRI and neurology consult at this time. Subjective Date of service: 07/17/18 Interval history: Awake and alert. On the phone. No distress noted. Objective - Constitutional Vitals: Vital Signs - 12hr 07/17/18 07/17/18 07/17/18 00:15 00:31 00:45 Temperature Pulse Rate 83 93 H 78 Respiratory 20 23 18 Rate Blood Pressure 148/78 148/78 145/86 O2 Sat by Pulse 95 96 97 Oximetry 07/17/18 07/17/18 07/17/18 01:00 01:15 01:30 Temperature Pulse Rate 79 73 81 Respiratory 19 19 20 Rate Blood Pressure 164/89 139/69 153/72 O2 Sat by Pulse 95 97 94 Oximetry 07/17/18 07/17/18 07/17/18 01:45 02:00 02:15 Temperature Pulse Rate 77 77 77 Respiratory 19 20 19 Rate Blood Pressure 164/65 167/84 147/81 O2 Sat by Pulse 95 95 96 Oximetry 07/17/18 07/17/18 07/17/18 02:30 02:45 03:01 Temperature Pulse Rate 76 76 82 Respiratory 19 19 18 Rate Blood Pressure 161/83 174/84 174/84 O2 Sat by Pulse 94 94 96 Oximetry 07/17/18 07/17/18 07/17/18 03:15 03:30 03:45 Temperature Pulse Rate 73 70 72 Respiratory 15 9 L 14 Rate Blood Pressure 155/78 157/78 157/84 O2 Sat by Pulse 97 97 98 Oximetry 07/17/18 07/17/18 07/17/18 04:00 04:15 04:30 Temperature 98.4 F Pulse Rate 70 72 72 Respiratory 18 18 19 Rate Blood Pressure 156/70 169/79 161/65 O2 Sat by Pulse 96 97 96 Oximetry 07/17/18 07/17/18 07/17/18 04:45 05:00 05:15 Temperature Pulse Rate 79 74 76 Respiratory 17 18 20 Rate Blood Pressure 151/72 177/90 175/90 O2 Sat by Pulse 93 96 96 Oximetry 07/17/18 07/17/18 07/17/18 05:30 05:45 06:00 Temperature Pulse Rate 76 76 77 Respiratory 16 17 17 Rate Blood Pressure 156/86 181/93 179/91 O2 Sat by Pulse 96 96 94 Oximetry 07/17/18 07/17/18 07/17/18 06:15 06:31 06:45 Temperature Pulse Rate 78 80 74 Respiratory 17 17 17 Rate Blood Pressure 206/96 190/90 196/93 O2 Sat by Pulse 97 95 97 Oximetry 07/17/18 07/17/18 07/17/18 07:01 07:15 07:30 Temperature Pulse Rate 80 86 86 Respiratory 16 17 16 Rate Blood Pressure 173/90 182/84 186/84 O2 Sat by Pulse 97 97 95 Oximetry 07/17/18 07/17/18 07/17/18 07:45 08:00 08:15 Temperature Pulse Rate 88 88 86 Respiratory 18 16 9 L Rate Blood Pressure 158/81 158/67 137/61 O2 Sat by Pulse 95 96 98 Oximetry 07/17/18 07/17/18 07/17/18 08:16 08:30 08:45 Temperature 98.7 F Pulse Rate 90 88 Respiratory 22 20 Rate Blood Pressure 149/78 138/78 O2 Sat by Pulse 95 96 Oximetry 07/17/18 07/17/18 07/17/18 09:01 09:15 09:30 Temperature Pulse Rate 105 H 107 H 90 Respiratory 21 21 17 Rate Blood Pressure 131/60 140/55 143/69 O2 Sat by Pulse 96 96 95 Oximetry 07/17/18 07/17/18 07/17/18 09:45 10:00 11:01 Temperature Pulse Rate 87 88 84 Respiratory 20 22 Rate Blood Pressure 136/71 146/74 133/62 O2 Sat by Pulse 94 95 Oximetry General appearance: Present: no acute distress - EENT Eyes: PERRL, EOM intact ENT: hearing intact, poor dentition - Neck Neck: supple, normal ROM - Respiratory Respiratory effort: normal Respiratory: bilateral: CTA - Labs CBC & Chem 7: 07/17/18 04:49 07/17/18 04:49 Labs: Abnormal lab results 07/16/18 07/16/1819 Range/Units 16:19 22:14 Unknown Lymph % (Auto) (13.4-35.0) % [place] % (Auto) (0.0-7.3) % Chloride (98-107) mmol/L BUN (7-17) mg/dL Creatinine (0.7-1.2) mg/dL POC Glucose 288 H 190 H (70-105) Urine Creatinine 43.5 H (0.1-20.0) mg/dL Urine Chloride 90.9 L (110-250) mmolL 07/17/18 07/17/18 07/17/18 Range/Units 04:49 04:49 07:57 Lymph % (Auto) 40.1 H (13.4-35.0) % [place] % (Auto) 7.9 H (0.0-7.3) % Chloride 107.7 H (98-107) mmol/L BUN 38 H (7-17) mg/dL Creatinine 5.2 H (0.7-1.2) mg/dL POC Glucose 119 H (70-105) Urine Creatinine (0.1-20.0) mg/dL Urine Chloride (110-250) mmolL 07/17/18 Range/Units 10:25 Lymph % (Auto) (13.4-35.0) % [place] % (Auto) (0.0-7.3) % Chloride (98-107) mmol/L BUN (7-17) mg/dL Creatinine (0.7-1.2) mg/dL POC Glucose 266 H (70-105) Urine Creatinine (0.1-20.0) mg/dL Urine Chloride (110-250) mmolL Medications & Allergies - Medications Allergies/Adverse Reactions: Allergies No Known Allergies Allergy (Unverified 07/16/18 07:34) Home Medications: Home Medications Medication Instructions Recorded Confirmed Last Taken Type Calcitriol [Rocaltrol] 0.25 mcg PO DAILY 07/16/18 07/16/18 Unknown History Insulin Detemir [Levemir VIAL] 15 unit SQ QHS 07/16/18 07/16/18 Unknown History Lispro Insulin [Humalog] 10 unit SQ DAILY 07/16/18 07/16/18 Unknown History Metoprolol Succinate [Toprol Xl] 200 mg PO DAILY 07/16/18 07/16/18 Unknown History NIFEdipine [Nifedipine ER] 60 mg PO DAILY 07/16/18 07/16/18 Unknown History Spironolactone [Aldactone] 50 mg PO QDAY 07/16/18 07/16/18 Unknown History Active Medications: Generic Name Dose Route Start Last Admin Trade Name Salvadorq PRN Reason Stop Dose Admin Aspirin 81 mg 07/18/18 10:00 Baby Aspirin PO QDAY KJ Atorvastatin Calcium 40 mg 07/16/18 22:00 07/16/18 22:52 Lipitor PO 40 mg QHS KJ Administration Calcitriol 0.25 mcg 07/17/18 10:00 07/17/18 11:02 Rocaltrol PO 0.25 mcg DAILY KJ Administration Nicardipine HCl 50 mg/ Sodium 250 mls @ 25 mls/hr 07/16/18 09:00 07/17/18 10:35 Chloride IV 0 mg/hr TITR KJ 0 mls/hr Titration Protocol 5 MG/HR Insulin Glargine 14 units 07/16/18 22:00 07/16/18 22:52 Lantus SUB-Q 14 units QHS KJ Administration Insulin Human Regular 0 units 07/16/18 16:30 07/17/18 10:33 Humulin R SUB-Q Not Given ACHS KJ Protocol Metoprolol Succinate 200 mg 07/17/18 10:00 07/17/18 11:01 Toprol Xl PO 200 mg QDAY KJ Administration Nifedipine 60 mg 07/17/18 10:00 07/17/18 11:01 Procardia Xl PO 60 mg DAILY KJ Administration Sodium Chloride 0 ml 07/16/18 11:00 Nacl 0.9% IV DIRECT KJ
--- NOTE | 2018-07-17 15:46 | Progress Note ---
Assessment and Plan Hypertensive encephalopathy - mental status now back to baseline, CT head unremarkable, cont to monitor BP Malignant HTN (BP 242/119 - POA) - s/p cadene drip to keep SBP 160- 180 - resumed home meds, off cardene drip now DM type 2 uncontrolled with hyperglycemia - Iv fluid, SSI and place on lentus home dose HLD, start on statin h/o renal cancer s/p right nephrectomy - order renal US, supportive care KYLEIGH on CKD stage 4/5 - monitor renal function, hold nephrotoxins, consulted renal DVT Px, heparin Transfer out off the ICU today Physical exam: General appearance: well-developed, well-nourished, appears stated age EENT: ATNC, PERRL Neck: Present: neck supple, trachea midline Respiratory: Clear to Ascultation, Normal Exam Heart: regular, S1S2 Gastrointestinal: Present: normal, normoactive bowel sounds Integumentary: no rash, warm and dry Neurologic: no focal deficit, no asterixis, alert and oriented x3 Musculoskeletal: Present: other (-edema ) Psychiatric: mood/affect appropriate, cooperative Subjective Date of service: 07/17/18 Interval history: pt seen and examined No acute event o/N BP much improved today, off cardene out off icu today Objective - Constitutional Vitals: Vital Signs - 12hr 07/17/18 07/17/18 07/17/18 04:00 04:15 04:30 Temperature 98.4 F Pulse Rate 70 72 72 Respiratory 18 18 19 Rate Blood Pressure 156/70 169/79 161/65 O2 Sat by Pulse 96 97 96 Oximetry 07/17/18 07/17/18 07/17/18 04:45 05:00 05:15 Temperature Pulse Rate 79 74 76 Respiratory 17 18 20 Rate Blood Pressure 151/72 177/90 175/90 O2 Sat by Pulse 93 96 96 Oximetry 07/17/18 07/17/18 07/17/18 05:30 05:45 06:00 Temperature Pulse Rate 76 76 77 Respiratory 16 17 17 Rate Blood Pressure 156/86 181/93 179/91 O2 Sat by Pulse 96 96 94 Oximetry 07/17/18 07/17/18 07/17/18 06:15 06:31 06:45 Temperature Pulse Rate 78 80 74 Respiratory 17 17 17 Rate Blood Pressure 206/96 190/90 196/93 O2 Sat by Pulse 97 95 97 Oximetry 01/31/19 01/31/19 01/31/19 07:01 07:15 07:30 Temperature Pulse Rate 80 86 86 Respiratory 16 17 16 Rate Blood Pressure 173/90 182/84 186/84 O2 Sat by Pulse 97 97 95 Oximetry 07/17/18 07/17/18 07/17/18 07:45 08:00 08:15 Temperature Pulse Rate 88 88 86 Respiratory 18 16 9 L Rate Blood Pressure 158/81 158/67 137/61 O2 Sat by Pulse 95 96 98 Oximetry 07/17/18 07/17/18 07/17/18 08:16 08:30 08:45 Temperature 98.7 F Pulse Rate 90 88 Respiratory 22 20 Rate Blood Pressure 149/78 138/78 O2 Sat by Pulse 95 96 Oximetry 07/17/18 07/17/18 07/17/18 09:01 09:15 09:30 Temperature Pulse Rate 105 H 107 H 90 Respiratory 21 21 17 Rate Blood Pressure 131/60 140/55 143/69 O2 Sat by Pulse 96 96 95 Oximetry 07/17/18 07/17/18 07/17/18 09:45 10:00 10:15 Temperature Pulse Rate 87 88 85 Respiratory 20 22 21 Rate Blood Pressure 136/71 146/74 140/74 O2 Sat by Pulse 94 95 95 Oximetry 07/17/18 07/17/18 07/17/18 10:30 10:45 11:01 Temperature Pulse Rate 97 H 85 87 Respiratory 18 13 14 Rate Blood Pressure 134/54 142/57 133/62 O2 Sat by Pulse 96 93 97 Oximetry 07/17/18 07/17/18 07/17/18 11:15 11:30 11:45 Temperature Pulse Rate 92 H 86 87 Respiratory 16 17 18 Rate Blood Pressure 146/74 159/59 149/56 O2 Sat by Pulse 97 98 97 Oximetry 07/17/18 07/17/18 07/17/18 12:00 12:15 12:28 Temperature 98.0 F Pulse Rate 88 77 Respiratory 13 17 Rate Blood Pressure 148/76 168/63 O2 Sat by Pulse 99 97 Oximetry 07/17/18 07/17/18 07/17/18 12:31 12:45 13:01 Temperature Pulse Rate 88 80 80 Respiratory 18 21 24 Rate Blood Pressure 168/63 168/63 168/63 O2 Sat by Pulse 98 98 97 Oximetry 07/17/18 07/17/18 07/17/18 13:15 13:31 13:45 Temperature Pulse Rate 76 77 83 Respiratory 22 22 22 Rate Blood Pressure 168/63 168/63 155/64 O2 Sat by Pulse 97 98 98 Oximetry 07/17/18 07/17/18 07/17/18 14:19 14:31 14:45 Temperature Pulse Rate 76 77 Respiratory 21 29 H Rate Blood Pressure 155/64 152/83 168/84 O2 Sat by Pulse 99 98 98 Oximetry 07/17/18 15:01 Temperature Pulse Rate 78 Respiratory 20 Rate Blood Pressure 154/73 O2 Sat by Pulse 96 Oximetry - Labs CBC & Chem 7: 07/17/18 04:49 07/18/18 08:35 Labs: Abnormal lab results 07/16/18 07/16/18 07/17/18 Range/Units 16:19 22:14 04:49 Lymph % (Auto) 40.1 H (13.4-35.0) % [place] % (Auto) 7.9 H (0.0-7.3) % Chloride (98-107) mmol/L BUN (7-17) mg/dL Creatinine (0.7-1.2) mg/dL POC Glucose 288 H 190 H (70-105) 07/17/18 07/17/18 07/17/18 Range/Units 04:49 07:57 10:25 Lymph % (Auto) (13.4-35.0) % [place] % (Auto) (0.0-7.3) % Chloride 107.7 H (98-107) mmol/L BUN 38 H (7-17) mg/dL Creatinine 5.2 H (0.7-1.2) mg/dL POC Glucose 119 H 266 H (70-105) 07/17/18 Range/Units 11:50 Lymph % (Auto) (13.4-35.0) % [place] % (Auto) (0.0-7.3) % Chloride (98-107) mmol/L BUN (7-17) mg/dL Creatinine (0.7-1.2) mg/dL POC Glucose 304 H (70-105)
[2018-07-17] MEDS: LANTUS SUB-Q SCH (22:29)
[2018-07-17] MEDS: HEPARIN SUB-Q SCH (22:31)
[2018-07-18] MEDS: HumuLIN R SUB-Q SCH ×4 (08:15→21:35)
--- NOTE | 2018-07-18 08:27 | Progress Note ---
Assessment and Plan - Patient Problems (1) Acute on chronic kidney failure Current Visit: Yes Status: Acute Qualifiers: Chronic kidney disease stage: stage 5, not on chronic dialysis Plan to address problem: Patient has acute on chronic kidney disease secondary to hypertensive emergency and malignant hypertension. Renal US noted at this time. UA and urine electrolyte results reviewed. Will obtain UPC. Avoid nephrotoxins. Monitor renal function daily. No acute indications for hemodialysis at present time. Need to strictly monitor her intake and urine output at this time. Will obtain BMP this morning, she needs to follow up with with nephrology within 2 weeks of discharge. 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 (2) Hypertensive encephalopathy Current Visit: Yes Status: Acute Plan to address problem: Mental status has improved at this time since admission. CT scan of head noted without any acute abnormalities. We'll continue to monitor. (3) Malignant hypertension Current Visit: Yes Status: Acute Plan to address problem: Blood pressure control has improved since admission and she has been transi tioned completely to oral medications. (4) Metabolic acidosis Current Visit: Yes Status: Acute Plan to address problem: We'll start patient on sodium bicarbonate tablets 1 pill by mouth 3 times a day with meals. (5) Insulin dependent diabetes mellitus Current Visit: Yes Status: Acute Plan to address problem: Diabetes management per primary team. Subjective Date of service: 07/18/18 Interval history: No acute issues overnight. No new labs this am, and will order for assessment of renal function this am. Blood pressure control is improved. Objective - Vital Signs Vital signs: Vital Signs - 12hr 07/17/18 07/17/18 07/17/18 20:27 21:37 22:35 Temperature 97.5 F L Pulse Rate 77 78 Pulse Rate [ 78 Apical] Pulse Rate [ 78 From Monitor] Respiratory 18 18 Rate Blood Pressure 165/83 O2 Sat by Pulse 96 96 Oximetry 07/18/18 07/18/18 01:07 04:28 Temperature 98.6 F 98.7 F Pulse Rate 73 76 Pulse Rate [ Apical] Pulse Rate [ From Monitor] Respiratory 20 20 Rate Blood Pressure 134/73 140/81 O2 Sat by Pulse 100 96 Oximetry - General Appearance General appearance: well-developed, well-nourished, appears stated age EENT: ATNC, PERRL Neck: no JVD, no thyromegaly Respiratory: Present: Clear to Ascultation, Normal Exam Cardiology: regular, S1S2 Gastrointestinal: normal, normoactive bowel sounds Integumentary: no rash, warm and dry Neurologic: no focal deficit, no asterixis, alert and oriented x3 Musculoskeletal: other (-edema ) Psychiatric: mood/affect appropriate, cooperative - Lab 07/17/18 04:49 07/17/18 04:49 Most recent lab results Calcium 8.6 mg/dL (8.4-10.2) 07/17/18 04:49 Magnesium 1.50 mg/dL (1.7-2.3) L 07/17/18 20:35 Urine Creatinine 43.5 mg/dL (0.1-20.0) H 07/16/18 Unknown Urine Sodium 93 mmol/L 07/16/18 Unknown - Allied health notes Allied health notes reviewed: nursing Medications & Allergies - Medications Allergies/Adverse Reactions: Allergies No Known Allergies Allergy (Unverified 07/16/18 07:34) Home Medications: Home Medications Medication Instructions Recorded Confirmed Last Taken Type Calcitriol [Rocaltrol] 0.25 mcg PO DAILY 07/16/18 07/16/18 Unknown History Insulin Detemir [Levemir VIAL] 40 unit SQ QHS 07/16/18 07/17/18 Unknown History Lispro Insulin [Humalog] 18 unit SQ ACHS 07/16/18 07/17/18 Unknown History Metoprolol Succinate [Toprol Xl] 200 mg PO DAILY 07/16/18 07/16/18 Unknown History NIFEdipine [Nifedipine ER] 60 mg PO DAILY 07/16/18 07/16/18 Unknown History Spironolactone [Aldactone] 50 mg PO QDAY 07/16/18 07/16/18 Unknown History Atorvastatin Calcium 40 mg PO QDAY 07/17/18 07/17/18 Unknown History Esomeprazole Magnesium [Nexium] 40 mg PO AC 07/17/18 07/17/18 Unknown History Ranitidine HCl [Acid Sawmill Or 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 Worker] 150 mg PO QHS 07/17/18 07/17/18 Unknown History Active Medications: Generic Name Dose Route Start Last Admin Trade Name Freq PRN Reason Stop Dose Admin Aspirin 81 mg 07/18/18 10:00 Baby Aspirin PO QDAY KJ Atorvastatin Calcium 40 mg 07/16/18 22:00 07/17/18 22:31 Lipitor PO 40 mg QHS KJ Administration Calcitriol 0.25 mcg 07/17/18 10:00 07/17/18 11:02 Rocaltrol PO 0.25 mcg DAILY KJ Administration Heparin Sodium (Porcine) 5,000 unit 07/17/18 22:00 07/17/18 22:31 Heparin SUB-Q 5,000 unit Q12HR KJ Administration Nicardipine HCl 50 mg/ Sodium 250 mls @ 25 mls/hr 07/16/18 09:00 07/17/18 10:35 Chloride IV 0 mg/hr TITR KJ 0 mls/hr Titration Protocol 5 MG/HR Insulin Glargine 14 units 07/16/18 22:00 07/17/18 22:29 Lantus SUB-Q 14 units QHS KJ Administration Insulin Human Regular 0 units 07/16/18 16:30 07/17/18 22:30 Humulin R SUB-Q 4 units ACHS KJ Administration Protocol Metoprolol Succinate 200 mg 07/17/18 10:00 07/17/18 11:01 Toprol Xl PO 200 mg QDAY KJ Administration Nifedipine 60 mg 07/17/18 10:00 07/17/18 11:01 Procardia Xl PO 60 mg DAILY KJ Administration Sodium Chloride 0 ml 07/16/18 11:00 Nacl 0.9% IV DIRECT KJ
--- NOTE | 2018-07-18 09:09 | Progress Note ---
Assessment and Plan 53 y/o female with altered mental status secondary to Hypertensive Emergency, Hypertensive encephalopathy from noncompliance with anti-hypertensive therapy. 1. BP control 2. REnal follow up 3. Education on compliance and importance 4. Will sign off. Subjective Date of service: 07/18/18 Interval history: No acute events. Stable. Successful transfer to the floor. BP better controlled, still with some elevations on oral but nothing like admit. Objective - Constitutional Vitals: Vital Signs - 12hr 07/17/18 07/17/18 07/18/18 21:37 22:35 01:07 Temperature 97.5 F L 98.6 F Pulse Rate 78 73 Pulse Rate [ 78 Apical] Pulse Rate [ 78 From Monitor] Respiratory 18 18 20 Rate Blood Pressure 165/83 134/73 O2 Sat by Pulse 96 96 100 Oximetry 07/18/18 04:28 Temperature 98.7 F Pulse Rate 76 Pulse Rate [ Apical] Pulse Rate [ From Monitor] Respiratory 20 Rate Blood Pressure 140/81 O2 Sat by Pulse 96 Oximetry General appearance: Present: no acute distress - EENT Eyes: PERRL, EOM intact ENT: hearing intact - Neck Neck: supple, normal ROM - Respiratory Respiratory: bilateral: CTA - Breasts Breasts: deferred - Cardiovascular Rhythm: regular Heart Sounds: Present: S1 & S2 Extremities: no ischemia - Labs CBC & Chem 7: 07/17/18 04:49 07/17/18 04:49 Labs: Abnormal lab results 07/17/18 07/17/18 07/17/18 Range/Units 10:25 11:50 16:23 POC Glucose 266 H 304 H 150 H (70-105) Magnesium (1.7-2.3) mg/dL 07/17/18 07/17/18 07/17/18 Range/Units 19:43 20:35 21:56 POC Glucose 200 H 294 H (70-105) Magnesium 1.50 L (1.7-2.3) mg/dL 07/18/18 Range/Units 06:16 POC Glucose 144 H (70-105) Magnesium (1.7-2.3) mg/dL Medications & Allergies - Medications Allergies/Adverse Reactions: Allergies No Known Allergies Allergy (Unverified 07/16/18 07:34) Home Medications: Home Medications Medication Instructions Recorded Confirmed Last Taken Type Calcitriol [Rocaltrol] 0.25 mcg PO DAILY 07/16/18 07/16/18 Unknown History Insulin Detemir [Levemir VIAL] 40 unit SQ QHS 07/16/18 07/17/18 Unknown History Lispro Insulin [Humalog] 18 unit SQ ACHS 07/16/18 07/17/18 Unknown History Metoprolol Succinate [Toprol Xl] 200 mg PO DAILY 07/16/18 07/16/18 Unknown History NIFEdipine [Nifedipine ER] 60 mg PO DAILY 07/16/18 07/16/18 Unknown History Spironolactone [Aldactone] 50 mg PO QDAY 07/16/18 07/16/18 Unknown History Atorvastatin Calcium 40 mg PO QDAY 07/17/18 07/17/18 Unknown History Esomeprazole Magnesium [Nexium] 40 mg PO AC 07/17/18 07/17/18 Unknown History Ranitidine HCl [Acid Sternman] 150 mg PO QHS 07/17/18 07/17/18 Unknown History Active Medications: Generic Name Dose Route Start Last Admin Trade Name Freq PRN Reason Stop Dose Admin Aspirin 81 mg 07/18/18 10:00 Baby Aspirin PO QDAY [facility] Atorvastatin Calcium 40 mg 07/16/18 22:00 07/17/18 22:31 Lipitor PO 40 mg QHS [facility] Administration Calcitriol 0.25 mcg 07/17/18 10:00 07/17/18 11:02 Rocaltrol PO 0.25 mcg DAILY KJ Administration Heparin Sodium (Porcine) 5,000 unit 07/17/18 22:00 07/17/18 22:31 Heparin SUB-Q 5,000 unit Q12HR KJ Administration Nicardipine HCl 50 mg/ Sodium 250 mls @ 25 mls/hr 07/16/18 09:00 07/17/18 10:35 Chloride IV 0 mg/hr TITR KJ 0 mls/hr Titration Protocol 5 MG/HR Insulin Glargine 14 units 07/16/18 22:00 07/17/18 22:29 Lantus SUB-Q 14 units QHS KJ Administration Insulin Human Regular 0 units 07/16/18 16:30 07/18/18 08:15 Humulin R SUB-Q Not Given ACHS [facility] Protocol Metoprolol Succinate 200 mg 07/17/18 10:00 07/17/18 11:01 Toprol Xl PO 200 mg QDAY KJ Administration Nifedipine 60 mg 07/17/18 10:00 07/17/18 11:01 Procardia Xl PO 60 mg DAILY KJ Administration Sodium Bicarbonate 650 mg 07/18/18 10:00 Sodium Bicarbonate PO BID KJ Sodium Chloride 0 ml 07/16/18 11:00 Nacl 0.9% IV DIRECT KJ
[2018-07-18 09:30] LABS: Calcium 8.5 mg/dL (8.4-10.2)
[2018-07-18] MEDS: HEPARIN SUB-Q SCH ×2 (10:17→21:34)
[2018-07-18] MEDS: TOPROL XL PO SCH (10:19)
[2018-07-18] MEDS: BABY ASPIRIN PO SCH (10:20)
[2018-07-18] MEDS: SODIUM BICARBONATE PO SCH ×2 (10:20→21:34)
[2018-07-18] MEDS: ROCALTROL PO SCH (10:20)
[2018-07-18] MEDS: PROCARDIA XL PO SCH (10:20)
[2018-07-18] MEDS: APRESOLINE PO SCH ×2 (13:47→21:35)
--- NOTE | 2018-07-18 14:42 | Progress Note ---
Assessment and Plan Hypertensive encephalopathy - mental status now back to baseline, CT head unremarkable, cont to monitor BP Malignant HTN (BP 242/119 - POA) - s/p cadene drip to keep SBP 160- 180 - resumed home meds, off cardene drip now - will also add hydralazine to better control BP DM type 2 uncontrolled with hyperglycemia - Iv fluid, SSI and place on lentus home dose HLD, start on statin h/o renal cancer s/p right nephrectomy - ordered renal US, supportive care KYLEIGH on CKD stage 5 - monitor renal function, hold nephrotoxins, consulted renal - no indication for Hd now DVT Px, heparin Physical exam: General appearance: well-developed, well-nourished, appears stated age EENT: ATNC, PERRL Neck: Present: neck supple, trachea midline Respiratory: Clear to Ascultation, Normal Exam Heart: regular, S1S2 Gastrointestinal: Present: normal, normoactive bowel sounds Integumentary: no rash, warm and dry Neurologic: no focal deficit, no asterixis, alert and oriented x3 Musculoskeletal: Present: other (-edema ) Psychiatric: mood/affect appropriate, cooperative Subjective Date of service: 07/18/18 Interval history: pt seen and examined No acute event o/N BP still elevated, denies chest pain Objective - Constitutional Vitals: Vital Signs - 12hr 07/18/18 07/18/18 07/18/18 04:28 08:49 10:00 Temperature 98.7 F 98.0 F Pulse Rate 76 89 Pulse Rate [ 85 From Monitor] Respiratory 20 20 Rate Blood Pressure 140/81 172/89 O2 Sat by Pulse 96 95 Oximetry 07/18/18 11:24 Temperature 98.3 F Pulse Rate Pulse Rate [ From Monitor] Respiratory Rate Blood Pressure O2 Sat by Pulse Oximetry - Labs CBC & Chem 7: 07/17/18 04:49 07/18/18 08:35 Labs: Abnormal lab results 07/17/18 07/17/18 07/17/18 Range/Units 16:23 19:43 20:35 Chloride (98-107) mmol/L Carbon Dioxide (22-30) mmol/L BUN (7-17) mg/dL Creatinine (0.7-1.2) mg/dL Glucose (65-100) mg/dL POC Glucose 150 H 200 H (70-105) Magnesium 1.50 L (1.7-2.3) mg/dL 07/17/18 07/18/18 07/18/18 Range/Units 21:56 06:16 08:35 Chloride 107.9 H (98-107) mmol/L Carbon Dioxide 21 L (22-30) mmol/L BUN 38 H (7-17) mg/dL Creatinine 5.1 H (0.7-1.2) mg/dL Glucose 143 H (65-100) mg/dL POC Glucose 294 H 144 H (70-105) Magnesium (1.7-2.3) mg/dL 07/18/18 Range/Units 11:25 Chloride (98-107) mmol/L Carbon Dioxide (22-30) mmol/L BUN (7-17) mg/dL Creatinine (0.7-1.2) mg/dL Glucose (65-100) mg/dL POC Glucose 195 H (70-105) Magnesium (1.7-2.3) mg/dL
[2018-07-18] MEDS: LANTUS SUB-Q SCH (21:35)
[2018-07-19] MEDS ORDERED: TYLENOL PO PRN (03:05)
[2018-07-19] MEDS: APRESOLINE PO SCH (05:53)
[2018-07-19] MEDS: HumuLIN R SUB-Q SCH ×2 (08:59→11:22)
[2018-07-19] MEDS: PROCARDIA XL PO SCH (09:40)
[2018-07-19] MEDS: TOPROL XL PO SCH (09:40)
[2018-07-19] MEDS: SODIUM BICARBONATE PO SCH (09:41)
[2018-07-19] MEDS: ROCALTROL PO SCH (09:41)
[2018-07-19] MEDS: HEPARIN SUB-Q SCH (09:41)
[2018-07-19] MEDS: BABY ASPIRIN PO SCH (09:41)
--- NOTE | 2018-07-19 12:47 | Discharge Summary ---
Providers - Providers Date of Admission: 07/16/18 09:06 Date of discharge: 07/19/18 Attending physician: ISAURO IBARRA 07/16/18 09:05 Consult to Physician [CONS] Urgent Comment: Consulting Provider: MIRIAM MEJIA Physician Instructions: Reason For Exam: hypertensive nephropathy creatinine 5.2 07/17/18 10:42 Physical Therapy Evaluation and Treat [CONS] Routine Comment: Reason For Exam: Debility Primary care physician: JOSEPHINE VICENTE Hospitalization Condition: Stable Pertinent studies: renal US, head CT CXR 2d echo Hospital course: This is a 53-year-old -[place] female with a past medical history of hypertension, diabetes on insulin, and renal cell carcinoma status post right to rene nephrectomy in 2013, follows nephrology at [place], presented to the emergency room department secondary to altered mental status, difficulty in speech, and perioral numbness associated with elevated blood pressure. In the ER CT scan of the head did not show any acute abnormalities. Per daughter patient was not taking her medication on regular basis. She was started on Cardene drip in the ER, her mental status has improved back to baseline and she was admitted for further evaluation and management. Discharge diagnosis and management: Hypertensive encephalopathy - mental status now back to baseline with better control in BP, CT head unremarkable, Malignant HTN (BP 242/119 - POA) - s/p cadene drip to keep SBP 160- 180 - resumed home meds, then weaned off cardene drip - adjusted meds to better control BP - BP stable with current meds DM type 2 uncontrolled with hyperglycemia - managed with Iv fluid, SSI and placed on lentus home dose HLD, started on statin h/o renal cancer s/p right nephrectomy - ordered renal US showed no new mass, supportive care and will cont outpt followup KYLEIGH on CKD stage 5 - likely vasomotor nephropathy and uncontrolled HTN - monitored renal function, held nephrotoxins, consulted renal - no indication for Hd now DVT Px, heparin Physical exam: General appearance: well-developed, well-nourished, appears stated age EENT: ATNC, PERRL Neck: Present: neck supple, trachea midline Respiratory: Clear to Ascultation, Normal Exam Heart: regular, S1S2 Gastrointestinal: Present: normal, normoactive bowel sounds Integumentary: no rash, warm and dry Neurologic: no focal deficit, no asterixis, alert and oriented x3 Musculoskeletal: Present: other (no edema ) Psychiatric: mood/affect appropriate, cooperative Disposition: DC-01 TO HOME OR SELFCARE Time spent for discharge: 34 minutes Core Measure Documentation - Palliative Care Palliative Care/ Comfort Measures: Not Applicable - Core Measures Any of the following diagnoses?: history only Exam - Constitutional Vitals: Temp Pulse Resp BP Pulse Ox 98.2 F 73 16 143/67 97 07/19/18 08:17 07/19/18 08:17 07/19/18 08:17 07/19/18 08:17 07/19/18 08:17 Plan Activity: advance as tolerated Weight Bearing Status: Weight Bear as Tolerated Diet: renal Follow up with: JOSEPHINE VICENTE MD [Primary Care Provider] - 7 Days OCTAVIA JONES DO [Staff Physician] - 7 Days Prescriptions: Aspirin [Aspirin BABY CHEW TAB] 81 mg PO QDAY #30 tab.chew hydrALAZINE [Apresoline TAB] 50 mg PO Q8HR #90 tablet
--- NOTE | 2018-07-19 13:40 | Progress Note ---
Assessment and Plan - Patient Problems (1) Acute on chronic kidney failure Current Visit: Yes Status: Acute Qualifiers: Chronic kidney disease stage: stage 5, not on chronic dialysis Plan to address problem: Patient has acute on chronic kidney disease secondary to hypertensive emergency and malignant hypertension. Renal US noted. UA and urine electrolyte results reviewed. Will obtain UPC. Avoid nephrotoxins. No acute indications for hemodialysis at present time. Need to strictly monitor her intake and urine output at this time. Stable for discharge with follow up with with nephrology within 2 weeks of discharge (2) Hypertensive encephalopathy Current Visit: Yes Status: Acute Plan to address problem: Mental status has improved at this time since admission. CT scan of head noted without any acute abnormalities. cont current BP regimen (3) Insulin dependent diabetes mellitus Current Visit: Yes Status: Acute Plan to address problem: Diabetes management per primary team. (4) Metabolic acidosis Current Visit: Yes Status: Acute Plan to address problem: cont sodium bicarbonate tablets 1 pill by mouth 3 times a day with meals. Subjective Date of service: 07/19/18 Principal diagnosis: KYLEIGH on CKD Interval history: patient awake, alert, in NAD Objective - Vital Signs Vital signs: Vital Signs - 12hr 07/19/18 07/19/18 07/19/18 02:53 03:23 05:12 Temperature 97.7 F Pulse Rate 70 Respiratory 18 20 Rate Blood Pressure 137/79 141/74 O2 Sat by Pulse 99 Oximetry 07/19/18 07/19/18 07/19/18 05:53 08:17 11:58 Temperature 98.2 F 98.0 F Pulse Rate 70 73 66 Respiratory 16 16 Rate Blood Pressure 141/74 143/67 139/69 O2 Sat by Pulse 97 100 Oximetry - General Appearance General appearance: well-developed, well-nourished, appears stated age EENT: ATNC, PERRL, mucous membranes moist Neck: no JVD Respiratory: Present: Clear to Ascultation Cardiology: regular, S1S2 Gastrointestinal: normoactive bowel sounds Integumentary: no rash, other (no edema ) Neurologic: no focal deficit, alert and oriented x3, strength 5/5, CN 3-12 intact Psychiatric: mood/affect appropriate, cooperative - Lab 07/17/18 04:49 07/18/18 08:35 Most recent lab results Calcium 8.5 mg/dL (8.4-10.2) 07/18/18 08:35 Magnesium 1.50 mg/dL (1.7-2.3) L 07/17/18 20:35 Urine Creatinine 43.5 mg/dL (0.1-20.0) H 07/16/18 Unknown Urine Sodium 93 mmol/L 07/16/18 Unknown Medications & Allergies - Medications Allergies/Adverse Reactions: Allergies No Known Allergies Allergy (Unverified 07/16/18 07:34) Home Medications: Home Medications Medication Instructions Recorded Confirmed Last Taken Type Calcitriol [Rocaltrol] 0.25 mcg PO DAILY 07/16/18 07/16/18 Unknown History Insulin Detemir [Levemir VIAL] 40 unit SQ QHS 07/16/18 07/17/18 Unknown History Lispro Insulin [Humalog] 18 unit SQ ACHS 07/16/18 07/17/18 Unknown History Metoprolol Succinate [Toprol Xl] 200 mg PO DAILY 07/16/18 07/16/18 Unknown History NIFEdipine [Nifedipine ER] 60 mg PO DAILY 07/16/18 07/16/18 Unknown History Atorvastatin Calcium 40 mg PO QDAY 07/17/18 07/17/18 Unknown History Esomeprazole Magnesium [Nexium] 40 mg PO AC 07/17/18 07/17/18 Unknown History Ranitidine HCl [Acid Contract Mail Carrier] 150 mg PO QHS 07/17/18 07/17/18 Unknown History Aspirin [Aspirin BABY CHEW TAB] 81 mg PO QDAY #30 tab.chew 07/19/18 Unknown Rx hydrALAZINE [Apresoline TAB] 50 mg PO Q8HR #90 tablet 07/19/18 Unknown Rx Active Medications: Generic Name Dose Route Start Last Admin Trade Name Freq PRN Reason Stop Dose Admin Acetaminophen 650 mg 07/19/18 03:05 07/19/18 03:23 Tylenol PO 650 mg Q4H PRN Administration Pain, Mild (1-3) Aspirin 81 mg 07/18/18 10:00 07/19/18 09:41 Baby Aspirin PO 81 mg QDAY KJ Administration Atorvastatin Calcium 40 mg 07/16/18 22:00 07/18/18 21:34 Lipitor PO 40 mg QHS KJ Administration Calcitriol 0.25 mcg 07/17/18 10:00 07/19/18 09:41 Rocaltrol PO 0.25 mcg DAILY KJ Administration Heparin Sodium (Porcine) 5,000 unit 07/17/18 22:00 07/19/18 09:41 Heparin SUB-Q 5,000 unit Q12HR KJ Administration Hydralazine HCl 50 mg 07/18/18 14:00 07/19/18 05:53 Apresoline PO 50 mg Q8HR KJ Administration Nicardipine HCl 50 mg/ Sodium 250 mls @ 25 mls/hr 07/16/18 09:00 07/17/18 10:35 Chloride IV 0 mg/hr TITR KJ 0 mls/hr Titration Protocol 5 MG/HR Insulin Glargine 14 units 07/16/18 22:00 07/18/18 21:35 Lantus SUB-Q 14 units QHS KJ Administration Insulin Human Regular 0 units 07/16/18 16:30 07/19/18 08:59 Humulin R SUB-Q Not Given ACHS KJ Protocol Metoprolol Succinate 200 mg 07/17/18 10:00 07/19/18 09:40 Toprol Xl PO 200 mg QDAY KJ Administration Nifedipine 60 mg 07/17/18 10:00 07/19/18 09:40 Procardia Xl PO 60 mg DAILY KJ Administration Sodium Bicarbonate 650 mg 07/18/18 10:00 07/19/18 09:41 Sodium Bicarbonate PO 650 mg BID KJ Administration Sodium Chloride 0 ml 07/16/18 11:00 Nacl 0.9% IV DIRECT KJ
[2018-07-20 11:32] VITALS: BP 139/69
== END 2018-07-19 15:27 | disposition home or self-care (01) | DRG 77 ==
LOC: ED 07:20 → CC1 09:06 → 4A 07-17 15:55
PROVIDERS: ADMIT Internal Medicine; ATTEND Internal Medicine
DX: I67.4 Hypertensive encephalopathy (principal); N17.0 Acute kidney failure with tubular necrosis; E87.2 Acidosis; N18.5 Chronic kidney disease, stage 5; I12.0 Hypertensive chronic kidney disease with stage 5 chronic kidney disease or end stage renal disease; I16.1 Hypertensive emergency; E11.65 Type 2 diabetes mellitus with hyperglycemia; E78.5 Hyperlipidemia, unspecified; E11.22 Type 2 diabetes mellitus with diabetic chronic kidney disease; Z79.4 Long term (current) use of insulin; Z85.528 Personal history of other malignant neoplasm of kidney; Z90.5 Acquired absence of kidney; Z91.14 Patient's other noncompliance with medication regimen; Z79.899 Other long term (current) drug therapy; Z82.49 Family history of ischemic heart disease and other diseases of the circulatory system; Z83.3 Family history of diabetes mellitus
CPT/HCPCS: 36415; 70450; 71045; 76770; 80048; 80076; 80307; 81001; 82436; 82550; 82553; 82570; 82962; 83735; 83880; 84133; 84300; 84484; 85025; 85610; 85670; 85730; 93005; 93010; 93306; 99406; G0378; A9270-GY; J1644; J1815; J3475; J7050

== ENCOUNTER 2018-09-20 22:13 | Emergency (ER) | payer MEDICARE ==
--- NOTE | 2018-09-20 22:31 | Emergency Department Report ---
Stated Complaint: POSS SEIZURE Time Seen by Provider: 09/20/18 22:29 - HPI History of Present Illness: transient arm numbness thinks she had sz numerous med problems no focal neuro def on exam in triage To main mse completed MSE screening note: Focused history and physical exam performed. Due to findings the following was ordered: ED Disposition for MSE Condition: Stable
[2018-09-20 23:10] LABS: Hematocrit 34.8 % (30.3-42.9); Hemoglobin 11.5 gm/dl (10.1-14.3); Mean Corpuscular HGB Conc 33 % (30-34); Mean Corpuscular Volume 93 fl (79-97); Platelet Count 219 K/mm3 (140-440); Red Blood Count 3.75 M/mm3 (3.65-5.03); Red Cell Distribution Width 13.8 % (13.2-15.2)
--- NOTE | 2018-09-20 23:17 | Cat Scan Report ---
PROCEDURE: CT HEAD/BRAIN WO CON TECHNIQUE: Spiral CT imaging of the brain was obtained without the use of IV contrast. HISTORY: transient numbness arm COMPARISONS: Prior CT scan of the brain 07/16/2018 FINDINGS: Brain: There is no evidence of intracranial hemorrhage. No parenchymal hemorrhage is seen. No mass lesions or mass effect is identified. No abnormal extra-axial fluid collections or masses are seen. There is some decreased density seen in the periventricular white matter without mass effect. This i s fairly symmetric and does not exhibit any mass effect consistent with gliosis probably on the basis of microvascular disease or white matter changes of aging. Ventricles: The ventricles are normal size and are midline.. Bone Windows: No evidence of fracture. Paranasal sinuses: Visualized portions are clear.. Mastoid air cells: Clear. IMPRESSION: Stable exam. There appears to be mild gliosis. No acute intracranial abnormalities are identified. No acute intracranial abnormalities are identified. This document is electronically signed by Chet John MD., September 20 2018 11:15:41 PM ET
[2018-09-20 23:38] LABS: Albumin 3.1 g/dL (3.9-5); Calcium 8.4 mg/dL (8.4-10.2)
[2018-09-20] MEDS ORDERED: CATAPRES PO ONE (23:38)
[2018-09-21 00:31] VITALS: BP 155/80
--- NOTE | 2018-09-21 00:45 | Emergency Department Report ---
ED General Adult HPI - General Chief complaint: Neuro Symptoms/Deficit Stated complaint: POSS SEIZURE Time Seen by Provider: 09/20/18 22:29 Source: patient Mode of arrival: Ambulatory Limitations: No Limitations - History of Present Illness Initial comments: Patient is a 53-year-old [place] female with past history of diabetes and hypertension who is presenting with some shakiness prior to arrival as well as some numbness to her lips. Patient states this occurred about 30 minutes prior to arrival. Patient taking 5 units of insulin after eating a very small salad before the symptoms occurred. Patient denies any focal neurological deficit nausea vomiting or diarrhea. Patient is worried that she was having a seizure. Severity scale (0 -10): 0 - Related Data Home Medications Medication Instructions Recorded Confirmed Last Taken Calcitriol [Rocaltrol] 0.25 mcg PO DAILY 07/16/18 07/16/18 Unknown Insulin Detemir [Levemir VIAL] 40 unit SQ QHS 07/16/18 07/17/18 Unknown Lispro Insulin [Humalog] 18 unit SQ ACHS 07/16/18 07/17/18 Unknown Metoprolol Succinate [Toprol Xl] 200 mg PO DAILY 07/16/18 07/16/18 Unknown NIFEdipine [Nifedipine ER] 60 mg PO DAILY 07/16/18 07/16/18 Unknown Atorvastatin Calcium 40 mg PO QDAY 07/17/18 07/17/18 Unknown Esomeprazole Magnesium [Nexium] 40 mg PO AC 07/17/18 07/17/18 Unknown Ranitidine HCl [Acid Filling Station Attendant] 150 mg PO QHS 07/17/18 07/17/18 Unknown Previous Rx's Medication Instructions Recorded Last Taken Type Aspirin [Aspirin BABY CHEW TAB] 81 mg PO QDAY #30 tab.chew 07/19/18 Unknown Rx hydrALAZINE [Apresoline TAB] 50 mg PO Q8HR #90 tablet 07/19/18 Unknown Rx Allergies Allergy/AdvReac Type Severity Reaction Status Date / Time No Known Allergies Allergy Unverified 07/16/18 07:34 ED Review of Systems ROS: Stated complaint: POSS SEIZURE Other details as noted in HPI Comment: All other systems reviewed and negative ED Past Medical Hx - Past Medical History Previous Medical History?: Yes Hx Hypertension: Yes Hx Diabetes: Yes Hx Renal Disease: Yes - Surgical History Past Surgical History?: Yes - Social History Smoking Status: Never Smoker Substance Use Type: None - Medications Home Medications: Home Medications Medication Instructions Recorded Confirmed Last Taken Type Calcitriol [Rocaltrol] 0.25 mcg PO DAILY 07/16/18 07/16/18 Unknown History Insulin Detemir [Levemir VIAL] 40 unit SQ QHS 07/16/18 07/17/18 Unknown History Lispro Insulin [Humalog] 18 unit SQ ACHS 07/16/18 07/17/18 Unknown History Metoprolol Succinate [Toprol Xl] 200 mg PO DAILY 07/16/18 07/16/18 Unknown Histo ry NIFEdipine [Nifedipine ER] 60 mg PO DAILY 07/16/18 07/16/18 Unknown History Atorvastatin Calcium 40 mg PO QDAY 07/17/18 07/17/18 Unknown History Esomeprazole Magnesium [Nexium] 40 mg PO AC 07/17/18 07/17/18 Unknown History Ranitidine HCl [Acid Filling Station Attendant] 150 mg PO QHS 07/17/18 07/17/18 Unknown History Aspirin [Aspirin BABY CHEW TAB] 81 mg PO QDAY #30 tab.chew 07/19/18 Unknown Rx hydrALAZINE [Apresoline TAB] 50 mg PO Q8HR #90 tablet 07/19/18 Unknown Rx ED Physical Exam - General Limitations: No Limitations General appearance: alert, in no apparent distress - Head Head exam: Present: atraumatic, normocephalic - Eye Eye exam: Present: normal appearance - ENT ENT exam: Present: mucous membranes moist - Neck Neck exam: Present: normal inspection - Respiratory Respiratory exam: Present: normal lung sounds bilaterally. Absent: respiratory distress, wheezes, rales, rhonchi - Cardiovascular Cardiovascular Exam: Present: regular rate, normal rhythm. Absent: systolic murmur, diastolic murmur, rubs, gallop - GI/Abdominal GI/Abdominal exam: Present: soft, normal bowel sounds. Absent: distended, tenderness, guarding, rebound - Extremities Exam Extremities exam: Present: normal inspection - Back Exam Back exam: Present: normal inspection - Neurological Exam Neurological exam: Present: alert, oriented X3 - Psychiatric Psychiatric exam: Present: normal affect, normal mood - Skin Skin exam: Present: warm, dry, intact, normal color. Absent: rash ED Course Vital Signs 09/20/18 09/20/18 09/21/18 22:21 23:45 00:31 Temperature 98 F Pulse Rate 89 73 75 Respiratory 18 19 16 Rate Blood Pressure 192/91 Blood Pressure 174/87 155/80 [Right] O2 Sat by Pulse 98 98 Oximetry ED Medical Decision Making - Lab Data Result diagrams: 09/20/18 23:00 09/20/18 23:00 Lab Results 09/20/18 09/20/18 09/20/18 Range/Units 23:00 23:00 23:00 WBC 8.6 (4.5-11.0) K/mm3 RBC 3.75 (3.65-5.03) M/mm3 Hgb 11.5 (10.1-14.3) gm/dl Hct 34.8 (30.3-42.9) % MCV 93 (79-97) fl MCH 31 (28-32) pg MCHC 33 (30-34) % RDW 13.8 (13.2-15.2) % Plt Count 219 (140-440) K/mm3 Sodium 143 (137-145) mmol/L Potassium 5.1 H (3.6-5.0) mmol/L Chloride 112.1 H (98-107) mmol/L Carbon Dioxide 16 L (22-30) mmol/L Anion Gap 20 mmol/L BUN 68 H (7-17) mg/dL Creatinine 7.1 H (0.7-1.2) mg/dL Estimated GFR 7 ml/min BUN/Creatinine Ratio 10 % Glucose 65 (65-100) mg/dL POC Glucose (70-105) Calcium 8.4 (8.4-10.2) mg/dL Total Bilirubin 0.20 (0.1-1.2) mg/dL AST 15 (5-40) units/L ALT 12 (7-56) units/L Alkaline Phosphatase 100 (35-129) units/L Total Creatine Kinase 169 H (30-135) units/L Troponin T < 0.010 (0.00-0.029) ng/mL Total Protein 6.9 (6.3-8.2) g/dL Albumin 3.1 L (3.9-5) g/dL Albumin/Globulin Ratio 0.8 % 09/20/18 09/21/18 Range/Units 23:10 00:35 WBC (4.5-11.0) K/mm3 RBC (3.65-5.03) M/mm3 Hgb (10.1-14.3) gm/dl Hct (30.3-42.9) % MCV (79-97) fl MCH (28-32) pg MCHC (30-34) % RDW (13.2-15.2) % Plt Count (140-440) K/mm3 Sodium (137-145) mmol/L Potassium (3.6-5.0) mmol/L Chloride (98-107) mmol/L Carbon Dioxide (22-30) mmol/L Anion Gap mmol/L BUN (7-17) mg/dL Creatinine (0.7-1.2) mg/dL Estimated GFR ml/min BUN/Creatinine Ratio % Glucose (65-100) mg/dL POC Glucose 57 L 169 H (70-105) Calcium (8.4-10.2) mg/dL Total Bilirubin (0.1-1.2) mg/dL AST (5-40) units/L ALT (7-56) units/L Alkaline Phosphatase (35-129) units/L Total Creatine Kinase (30-135) units/L Troponin T (0.00-0.029) ng/mL Total Protein (6.3-8.2) g/dL Albumin (3.9-5) g/dL Albumin/Globulin Ratio % - Medical Decision Making Patient was noted in triage to have a glucose of 57. Patient was given orange juice and stated that her symptoms dramatically have improved. Patient gives underneath as well. Repeat blood sugars were within normal limits. Patient's laboratory studies are within normal limits as was her CT of her head. Patient discharged home. Critical care attestation.: If time is entered above; I have spent that time in minutes in the direct care of this critically ill patient, excluding procedure time. ED Disposition Clinical Impression: Hypoglycemia Disposition: DC-01 TO HOME OR SELFCARE Is pt being admited?: No Does the pt Need Aspirin: No Condition: Stable Instructions: Diabetic Hypoglycemia (ED) Referrals: PRIMARY CARE, [Primary Care Provider] - 3-5 Days Time of Disposition: 00:44
== END 2018-09-21 00:58 | disposition home or self-care (01) ==
LOC: ED 22:13
DX: E11.649 Type 2 diabetes mellitus with hypoglycemia without coma (principal); I10 Essential (primary) hypertension; Z79.4 Long term (current) use of insulin
CPT/HCPCS: 36415; 70450; 80053; 82550; 82962; 84484; 85027; 93005; 93010; 99284

== ENCOUNTER 2018-09-26 08:13 | Inpatient (IN) | payer MEDICARE ==
[2018-09-26 08:59] LABS: Basophils # (Auto) 0.1 K/mm3 (0.0-0.1); Basophils % (Auto) 1.1 % (0.0-1.8); Eosinophils # (Auto) 0.2 K/mm3 (0.0-0.4); Eosinophils % (Auto) 2.4 % (0.0-4.3); Hematocrit 32.2 % (30.3-42.9); Hemoglobin 10.5 gm/dl (10.1-14.3); Lymphocytes # (Auto) 2.4 K/mm3 (1.2-5.4); Lymphocytes % (Auto) 37.9 % (13.4-35.0); Mean Corpuscular HGB Conc 33 % (30-34); Mean Corpuscular Volume 93 fl (79-97); Monocytes # (Auto) 0.5 K/mm3 (0.0-0.8); Platelet Count 211 K/mm3 (140-440); Red Blood Count 3.47 M/mm3 (3.65-5.03); Red Cell Distribution Width 13.8 % (13.2-15.2)
[2018-09-26 09:08] LABS: INR 0.95 (0.87-1.13)
[2018-09-26 09:09] LABS: Partial Thromboplastin Time 26.8 Sec. (24.2-36.6); Thrombin Time 17.8 Sec. (15.1-19.6)
[2018-09-26 09:11] LABS: BUN/Creatinine Ratio 9; Blood Urea Nitrogen 67 mg/dL (7-17); Calcium 7.9 mg/dL (8.4-10.2); Hemolysis Index 10
[2018-09-26] MEDS ORDERED: CALCIUM GLUCONATE 1,000 MG in NACL 0.9% 100 ML IV ONE (09:58)
[2018-09-26] MEDS ORDERED: PROVENTIL IH ONE (09:59)
[2018-09-26] MEDS ORDERED: D50W (25GM) Vial IV ONE (09:59)
[2018-09-26] MEDS ORDERED: HumuLIN R IV ONE (10:00)
[2018-09-26] MEDS ORDERED: MAGNESIUM SULFATE 1 GM in NACL 0.9% 50 ML IV ONE (10:01)
[2018-09-26] MEDS ORDERED: KIONEX PO ONE (10:01)
[2018-09-26] MEDS ORDERED: NACL 0.9% 500 ML 500 ML IV ONE (10:01)
[2018-09-26] MEDS ORDERED: LASIX IV ONE (10:01)
--- NOTE | 2018-09-26 10:04 | Emergency Department Report ---
ED Neuro Deficit HPI - General Chief Complaint: Weakness Stated Complaint: FEELING ABNORMAL/LIKE STROKE SX Time Seen by Provider: 09/26/18 09:19 Source: patient Mode of arrival: Ambulatory Limitations: No Limitations - History of Present Illness Initial Comments: 53-year-old female with a past medical history chronic renal insufficiency, history of renal carcinoma with right nephrectomy in 2013, CVA, diabetes, and hypertension and possible complaints of periorbital paresthesias and intermittent paresthesias bilateral hands. Patient states that June she was admitted for similar symptoms. Upon previous medical review patient presented stuttering speech at that time it was treated for hypertensive encephalopathy. Since patient has had intermittent periorbital and paresthesias to her hands that alternates between left and right hand. This was here September 20 for similar symptoms which were thought to be due to hypoglycemia. CT head unremarkable at that time. Symptoms have improved and patient is pain free. 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 - Related Data Home Medications: Home Medications Medication Instructions Recorded Confirmed Last Taken Calcitriol [Rocaltrol] 0.25 mcg PO DAILY 07/16/18 07/16/18 Unknown Insulin Detemir [Levemir VIAL] 40 unit SQ QHS 07/16/18 07/17/18 Unknown Lispro Insulin [Humalog] 18 unit SQ ACHS 07/16/18 07/17/18 Unknown Metoprolol Succinate [Toprol Xl] 200 mg PO DAILY 07/16/18 07/16/18 Unknown NIFEdipine [Nifedipine ER] 60 mg PO DAILY 07/16/18 07/16/18 Unknown Atorvastatin Calcium 40 mg PO QDAY 07/17/18 07/17/18 Unknown Esomeprazole Magnesium [Nexium] 40 mg PO AC 07/17/18 07/17/18 Unknown Ranitidine HCl [Acid Audio/Video Engineer] 150 mg PO QHS 07/17/18 07/17/18 Unknown Previous Rx's Medication Instructions Recorded Last Taken Type Aspirin [Aspirin BABY CHEW TAB] 81 mg PO QDAY #30 tab.chew 07/19/18 Unknown Rx hydrALAZINE [Apresoline TAB] 50 mg PO Q8HR #90 tablet 07/19/18 Unknown Rx Allergies/Adverse Reactions: Allergies Allergy/AdvReac Type Severity Reaction Status Date / Time No Known Allergies Allergy Verified 09/26/18 08:16 ED Review of Systems ROS: Stated complaint: FEELING ABNORMAL/LIKE STROKE SX Other details as noted in HPI Comment: All other systems reviewed and negative ED Past Medical Hx - Past Medical History Previous Medical History?: Yes Hx Hypertension: Yes Hx CVA: Yes Hx Diabetes: Yes Hx Renal Disease: Yes - Surgical History Past Surgical History?: Yes Additional Surgical History: cyst removed from ovaries, right kidney removed - Social History Smoking Status: Former Smoker Substance Use Type: None - Medications Home Medications: Home Medications Medication Instructions Recorded Confirmed Last Taken Type Calcitriol [Rocaltrol] 0.25 mcg PO DAILY 07/16/18 07/16/18 Unknown History Insulin Detemir [Levemir VIAL] 40 unit SQ QHS 07/16/18 07/17/18 Unknown History Lispro Insulin [Humalog] 18 unit SQ ACHS 07/16/18 07/17/18 Unknown History Metoprolol Succinate [Toprol Xl] 200 mg PO DAILY 07/16/18 07/16/18 Unknown Hi story NIFEdipine [Nifedipine ER] 60 mg PO DAILY 07/16/18 07/16/18 Unknown History Atorvastatin Calcium 40 mg PO QDAY 07/17/18 07/17/18 Unknown History Esomeprazole Magnesium [Nexium] 40 mg PO AC 07/17/18 07/17/18 Unknown History Ranitidine HCl [Acid Audio/Video Engineer] 150 mg PO QHS 07/17/18 07/17/18 Unknown History Aspirin [Aspirin BABY CHEW TAB] 81 mg PO QDAY #30 tab.chew 07/19/18 Unknown Rx hydrALAZINE [Apresoline TAB] 50 mg PO Q8HR #90 tablet 07/19/18 Unknown Rx ED Neuro Physical Exam - General Limitations: No Limitations Suspected Stroke: Yes - NIHSS Assessment Interval: Baseline 1a. Level of Consciousness: alert/keenly responsive 1b. LOC Questions: answers both correctly 1c. LOC Commands: performs tasks correctly 2. Best Gaze: normal 3. Visual: no visual loss 4. Facial Palsy: normal symmetrical movement 5b. Motor Arm Right: no drift 5a. Motor Arm Left: no drift 6a. Motor Leg Left: no drift 6b. Motor Leg Right: no drift 7. Limb Ataxia: absent 8. Sensory: normal 9. Best Language: no aphasia 10. Dysarthria: normal 11. Extinction/Inattention: no abnormality Total Score: 0 Stroke Severity: No Stroke Symptoms - Other Other exam information: General: No limitations, patient is alert in no acute distress Head exam: Atraumatic, normocephalic Eyes exam: Normal appearance, pupils equal reactive to light, extraocular movements intact ENT: Moist mucous membrane, normal oropharynx Neck exam: Normal inspection, full range of motion, no meningismus nontender Respiratory exam: Clear to auscultation bilateral, no wheezes, rales, crackles Cardiovascular: Normal rate and rhythm, normal heart sounds Abdomen: Soft, nondistended, and nontender, with normal bowel sounds, no rebound, or guarding Extremity: Full range of motion normal inspection no deformity Back: Normal Inspection, full range of motion, no tenderness Neurologic: Alert, oriented x3, cranial nerves intact, no motor or sensory deficit Psychiatric: normal affect, normal mood Skin: Warm, dry, intact ED Course Vital Signs 09/26/18 08:25 Temperature 97.4 F L Pulse Rate 68 Blood Pressure 195/93 - Consultations Consultation #1: 09/26/18 10:02 case d/w with nephro dr pierce, will consult. rec hyperkalemic tx and vascular c onsult for permacath 09/26/18 10:30 case d/w [place] w/vascular - Lab Data Result diagrams: 09/26/18 08:35 09/26/18 08:35 Lab Results 09/26/18 09/26/18 09/26/18 Range/Units 08:35 08:35 08:35 WBC 6.4 (4.5-11.0) K/mm3 RBC 3.47 L (3.65-5.03) M/mm3 Hgb 10.5 (10.1-14.3) gm/dl Hct 32.2 (30.3-42.9) % MCV 93 (79-97) fl MCH 30 (28-32) pg MCHC 33 (30-34) % RDW 13.8 (13.2-15.2) % Plt Count 211 (140-440) K/mm3 Lymph % (Auto) 37.9 H (13.4-35.0) % Jay % (Auto) 8.0 H (0.0-7.3) % Eos % (Auto) 2.4 (0.0-4.3) % Baso % (Auto) 1.1 (0.0-1.8) % Lymph # 2.4 (1.2-5.4) K/mm3 Jay # 0.5 (0.0-0.8) K/mm3 Eos # 0.2 (0.0-0.4) K/mm3 Baso # 0.1 (0.0-0.1) K/mm3 Seg Neutrophils % 50.6 (40.0-70.0) % Seg Neutrophils # 3.2 (1.8-7.7) K/mm3 PT 13.3 (12.2-14.9) Sec. INR 0.95 (0.87-1.13) APTT 26.8 (24.2-36.6) Sec. Thrombin Time 17.8 (15.1-19.6) Sec. Sodium 139 (137-145) mmol/L Potassium 5.7 H (3.6-5.0) mmol/L Chloride 110.4 H (98-107) mmol/L Carbon Dioxide 15 L (22-30) mmol/L Anion Gap 19 mmol/L BUN 67 H (7-17) mg/dL Creatinine 7.2 H (0.7-1.2) mg/dL Estimated GFR 7 ml/min BUN/Creatinine Ratio 9 % Glucose 126 H (65-100) mg/dL Calcium 7.9 L (8.4-10.2) mg/dL Magnesium (1.7-2.3) mg/dL Troponin T < 0.010 (0.00-0.029) ng/mL 09/26/18 Range/Units 08:35 WBC (4.5-11.0) K/mm3 RBC (3.65-5.03) M/mm3 Hgb (10.1-14.3) gm/dl Hct (30.3-42.9) % MCV (79-97) fl MCH (28-32) pg MCHC (30-34) % RDW (13.2-15.2) % Plt Count (140-440) K/mm3 Lymph % (Auto) (13.4-35.0) % Jay % (Auto) (0.0-7.3) % Eos % (Auto) (0.0-4.3) % Baso % (Auto) (0.0-1.8) % Lymph # (1.2-5.4) K/mm3 Jay # (0.0-0.8) K/mm3 Eos # (0.0-0.4) K/mm3 Baso # (0.0-0.1) K/mm3 Seg Neutrophils % (40.0-70.0) % Seg Neutrophils # (1.8-7.7) K/mm3 PT (12.2-14.9) Sec. INR (0.87-1.13) APTT (24.2-36.6) Sec. Thrombin Time (15.1-19.6) Sec. Sodium (137-145) mmol/L Potassium (3.6-5.0) mmol/L Chloride (98-107) mmol/L Carbon Dioxide (22-30) mmol/L Anion Gap mmol/L BUN (7-17) mg/dL Creatinine (0.7-1.2) mg/dL Estimated GFR ml/min BUN/Creatinine Ratio % Glucose (65-100) mg/dL Calcium (8.4-10.2) mg/dL Magnesium 1.20 L (1.7-2.3) mg/dL Troponin T (0.00-0.029) ng/mL - EKG Data -: EKG Interpreted by Ok EKG shows normal: sinus rhythm, axis (qrs -2), QRS complexes (qrsd 84), ST-T waves (lvh) Rate: normal (64) When compared to previous EKG there are: no significant change - Radiology Data Radiology results: report reviewed CT HEAD WITHOUT CONTRAST: HISTORY: Neurological deficit, stroke. TECHNIQUE: Sequential 2.5mm CT images. COMPARISON: 09/20/18. FINDINGS: Cerebral Parenchyma: Minimal nonspecific chronic white matter changes are again identified and unchanged. Otherwise the brain parenchyma demonstrates normal attenuation. Cerebellum: Within normal limits. Brainstem: Within normal limits. Ventricles: Normal. Sella: Normal. Extra-axial spaces: Normal. Basal Cisterns: Normal. Intracranial Hemorrhage: None. Midline Shift: None. Calvarium: Normal. Sinuses: Normal. Mastoid Air Cells: Normal. Visualized Orbits: Normal. IMPRESSION: No acute intracranial process. Minimal nonspecific chronic white matter changes. - Medical Decision Making Patient has ability stable creatinine however, and continues to have metabolic acidosis now with hyperkalemia. Medications ordered for hyperkalemia. IV magnesium for hypomagnesemia. Excavation Laborer and vascular consulted. To admit for further management. - Differential Diagnosis electrolyte abnormality, CVA, renal failure, anxiety Critical Care Time: No Critical care attestation.: If time is entered above; I have spent that time in minutes in the direct care of this critically ill patient, excluding procedure time. ED Disposition Clinical Impression: Metabolic acidosis, Malignant hypertension, Renal insufficiency, Hyperkalemia, Hypomagnesemia, Paresthesia Disposition: OP ADMIT IP TO THIS HOSP Is pt being admited?: Yes Condition: Stable Time of Disposition: 11:06 (Dr Linares/hosp)
--- NOTE | 2018-09-26 10:46 | Cat Scan Report ---
CT HEAD WITHOUT CONTRAST: HISTORY: Neurological deficit, stroke. TECHNIQUE: Sequential 2.5mm CT images. COMPARISON: 09/20/18. FINDINGS: Cerebral Parenchyma: Minimal nonspecific chronic white matter changes are again identified and unchanged. Otherwise the brain parenchyma demonstrates normal attenuation. Cerebellum: Within normal limits. Brainstem: Within normal limits. Ventricles: Normal. Sella: Normal. Extra-axial spaces: Normal. Basal Cisterns: Normal. Intracranial Hemorrhage: None. Midline Shift: None. Calvarium: Normal. Sinuses: Normal. Mastoid Air Cells: Normal. Visualized Orbits: Normal. IMPRESSION: No acute intracranial process. Minimal nonspecific chronic white matter changes.
[2018-09-26] MEDS ORDERED: D50W (25GM) Syringe IV ONE (11:00)
[2018-09-26] MEDS ORDERED: NACL 0.9% 100 ML IV PRN ×2 (11:00→21:08)
[2018-09-26] MEDS: HumaLOG SUB-Q SCH (12:11)
--- NOTE | 2018-09-26 12:21 | Consultation ---
History of Present Illness - Reason for Consult Consult date: 09/26/18 end stage renal disease, hyperkalemia, metabolic acidosis Requesting physician: VILMA WILLS - History of Present Illness This is a 53 yo AAF with past medical history of Hypertension, type 2 DM, h/o renal carcinoma with R nephrectomy in 2013, CKD stage 5, secondary hyperparathyroidism, who has been following with Dr Rosenberg in our group for preparation of future renal renal placement, who now presents to [facility] ER with complaints of periorbital paresthesias and intermittent paresthesias bilateral hands. labs showed elevated BUN/Cr at 67/4.2mg/dl, hyperkalemia iwth K > 5.7 along with serum bicarb of 15. Compared to office labs (BUN/Cr at 71/5.36mg/dl on 08/29/18) renal function is worsening, and renal consult is requested for management of advanced CKD and evaluation of renal replacement therapy. Pt was already being prepared for RECYCLING OPERATIONS MANAGER, referred to Transplant clinic, and also referred to vascular surgery for access evaluation, however pt was not able to make the appointment. Pt reports intermittent nausea, however no vomiting. pt denies recent NSAIDs use or IV contrast exposure. Past History Past Medical History: anemia, diabetes, hypertension, renal failure Past Surgical History: Other (L nephrectomy 2013) Social history: denies: smoking, alcohol abuse, prescription drug abuse, IV drug use Family history: hypertension Medications and Allergies Allergies Allergy/AdvReac Type Severity Reaction Status Date / Time No Known Allergies Allergy Verified 09/26/18 08:16 Home Medications Medication Instructions Recorded Confirmed Last Taken Type Lispro Insulin [Humalog] 18 unit SQ ACHS 07/16/18 07/17/18 Unknown History Metoprolol Succinate [Toprol Xl] 200 mg PO DAILY 07/16/18 07/16/18 Unknown History NIFEdipine [Nifedipine ER] 60 mg PO DAILY 07/16/18 07/16/18 Unknown History Atorvastatin Calcium 40 mg PO QDAY 07/17/18 07/17/18 Unknown History Esomeprazole Magnesium [Nexium] 40 mg PO AC 07/17/18 07/17/18 Unknown History Ranitidine HCl [Acid Fire Loss Prevention Engineer] 150 mg PO QHS 07/17/18 07/17/18 Unknown History Aspirin [Aspirin BABY CHEW TAB] 81 mg PO QDAY #30 tab.chew 07/19/18 Unknown Rx hydrALAZINE [Apresoline TAB] 50 mg PO Q8HR #90 tablet 07/19/18 Unknown Rx Budesonide/Formoterol Fumarate 2 puff IH QAM 09/26/18 09/26/18 Unknown History [Symbicort 160-4.5 Mcg Inhaler] Calcitriol [Rocaltrol] 0.5 mcg PO QDAY 09/26/18 09/26/18 09/26/18 History Insulin Glargine,Hum.rec.anlog 37 units SUB-Q HS 09/26/18 09/26/18 Unknown History [Lantus Solostar] Spironolactone [Aldactone] 50 mg PO BID 09/26/18 09/26/18 Unknown History Active Meds: Active Medications Sodium Chloride (Nacl 0.9%) 100 mls @ 999 mls/hr IV MORRIS PRN PRN Reason: Hypotension Review of Systems All systems: negative Constitutional: weakness Gastrointestinal: nausea Exam - Vital Signs Vital signs: Vital Signs Temp Pulse BP 97.4 F L 68 195/93 09/26/18 08:25 09/26/18 08:25 09/26/18 08:25 - General Appearance General appearance: well-developed, well-nourished, appears stated age EENT: ATNC, PERRL, mucous membranes moist Neck: Present: neck supple Respiratory: Clear to Ascultation Heart: regular, S1S2 Gastrointestinal: Present: normoactive bowel sounds Integumentary: no rash, other (no edema) Neurologic: no focal deficit, alert and oriented x3, strength 5/5, CN 3-12 intact Psychiatric: mood/affect appropriate, cooperative Results - Lab Results 09/26/18 08:35 09/26/18 08:35 Most recent lab results Calcium 7.9 mg/dL (8.4-10.2) L 09/26/18 08:35 Magnesium 1.20 mg/dL (1.7-2.3) L 09/26/18 08:35 Assessment and Plan - Patient Problems (1) Hyperkalemia Current Visit: Yes Status: Acute Plan to address problem: treat Hyperkalemia medically for now, with Kayexalate, IV bicarb, IV lasix, and calcium gluconate. Will initiate HD once access is placed. cont 2g K renal diet (2) End-stage renal disease (ESRD) Current Visit: Yes Status: Acute Plan to address problem: advanced CKD now approached ESRD. vascular surgery consulted for permcath placement, once access is available will initiate HD. Case management to assist outpatient HD placement. (3) Type 2 diabetes mellitus with diabetic chronic kidney disease Current Visit: Yes Status: Acute Plan to address problem: glucose control as per primary attending (4) Hypertensive chronic kidney disease with stage 5 chronic kidney disease or end stage renal disease Current Visit: Yes Status: Acute Plan to address problem: BP elevated, resume home BP meds. once HD initiated, will increase UF as tolerated for further volume/BP control. (5) Hypomagnesemia Current Visit: Yes Status: Acute Plan to address problem: pt given 1g Mg sulfate in ER (6) Metabolic acidosis Current Visit: Yes Status: Acute Plan to address problem: will initiate HD for correction of metabolic acidosis
[2018-09-26 14:50] LABS: Hepatitis C Virus Antibody Non-Reactive (NonReactive)
[2018-09-26] MEDS ORDERED: HEPARIN 10,000 UNITS/10 ML ONE (15:16)
[2018-09-26] MEDS ORDERED: HEPARIN/NS 5000 UNIT/500ML(CATH LAB) 500 ML IR ONE (15:16)
[2018-09-26] MEDS ORDERED: VERSED ONE (15:17)
[2018-09-26] MEDS ORDERED: SUBLIMAZE ONE (15:17)
[2018-09-26] MEDS ORDERED: ANCEF/STERILE WATER 2 GM/20 ML 2 GM/20 ML SYRINGE IV ONE (15:17)
[2018-09-26] MEDS ORDERED: NACL 0.9% 500 ML 500 ML ONE (15:26)
[2018-09-26 15:34] LABS: Hepatitis B Surface Antigen Non-Reactive (Negative)
--- NOTE | 2018-09-26 15:40 | Consultation ---
History of Present Illness - Reason for Consult Consult date: 09/26/18 Evaluate for HD access Requesting physician: MIRIAM MEJIA - History of Present Illness This pt is a 53 yo AAF who has been admitted via the [facility] ER due to progression of CKD and hyperkalemia. She has a h/o renal cancer s/p nephrectomy. Her kidney function has deteriorated. She now has symptoms of uremia with an elevated potassium. It is felt she will need to begin HD. A vascular surgery consult has been requested to evaluate for HD access (Perma-cath). She is right hand dominant in the event an AVF is required. Past History Past Medical History: anemia, cancer (h/o renal cancer), diabetes, hypertension, renal failure Past Surgical History: Other (nephrectomy 2013) Social history: denies: smoking, alcohol abuse, prescription drug abuse, IV drug use Family history: hypertension Medications and Allergies Allergies Allergy/AdvReac Type Severity Reaction Status Date / Time lisinopril Allergy Swelling Verified 09/26/18 15:30 Sulfa (Sulfonamide Allergy Swelling Verified 09/26/18 15:30 Antibiotics) Home Medications Medication Instructions Recorded Confirmed Last Taken Type Lispro Insulin [Humalog] 15 units SUB-Q TID 07/16/18 09/26/18 09/25/18 History Metoprolol Succinate [Toprol Xl] 200 mg PO DAILY 07/16/18 09/26/18 09/26/18 History NIFEdipine [Nifedipine ER] 60 mg PO DAILY 07/16/18 09/26/18 09/26/18 History Atorvastatin Calcium 40 mg PO QDAY 07/17/18 09/26/18 09/26/18 History Esomeprazole Magnesium [Nexium] 40 mg PO QAM 07/17/18 09/26/18 09/26/18 History Ranitidine HCl [Acid Planning Technician] 150 mg PO QHS 07/17/18 09/26/18 09/25/18 History Aspirin [Aspirin BABY CHEW TAB] 81 mg PO QDAY #30 tab.chew 07/19/18 09/26/18 09/26/18 Rx hydrALAZINE [Apresoline TAB] 50 mg PO Q8HR #90 tablet 07/19/18 09/26/18 09/26/18 Rx Budesonide/Formoterol Fumarate 2 puff IH QAM 09/26/18 09/26/18 Unknown History [Symbicort 160-4.5 Mcg Inhaler] Calcitriol [Rocaltrol] 0.5 mcg PO QDAY 09/26/18 09/26/18 09/26/18 History Insulin Glargine,Hum.rec.anlog 37 units SUB-Q HS 09/26/18 09/26/18 Unknown History [Lantus Solostar] Spironolactone [Aldactone] 50 mg PO BID 09/26/18 09/26/18 Unknown History Active Meds: Active Medications Sodium Chloride (Nacl 0.9%) 100 mls @ 999 mls/hr IV MORRIS PRN PRN Reason: Hypotension Review of Systems All systems: negative Exam - Constitutional Vitals: Temp Pulse Resp BP Pulse Ox 97.4 F L 69 18 168/77 100 09/26/18 08:25 09/26/18 13:57 09/26/18 13:57 09/26/18 13:57 09/26/18 13:57 General appearance: Present: no acute distress - EENT Eyes: Present: EOM intact ENT: hearing intact - Neck Neck: Present: supple - Respiratory Respiratory effort: normal - Extremities Extremities: no ischemia - Psychiatric Psychiatric: appropriate mood/affect, intact judgment & insight, cooperative - Neurologic Neurologic: no focal deficits Results - Labs CBC & Chem 7: 09/26/18 08:35 09/26/18 08:35 Labs: Abnormal lab results 09/26/18 09/26/18 09/26/18 Range/Units 08:35 08:35 08:35 RBC 3.47 L (3.65-5.03) M/mm3 Lymph % (Auto) 37.9 H (13.4-35.0) % [place] % (Auto) 8.0 H (0.0-7.3) % Potassium 5.7 H (3.6-5.0) mmol/L Chloride 110.4 H (98-107) mmol/L Carbon Dioxide 15 L (22-30) mmol/L BUN 67 H (7-17) mg/dL Creatinine 7.2 H (0.7-1.2) mg/dL Glucose 126 H (65-100) mg/dL POC Glucose (70-105) Calcium 7.9 L (8.4-10.2) mg/dL Magnesium 1.20 L (1.7-2.3) mg/dL 09/26/18 Range/Units 12:35 RBC (3.65-5.03) M/mm3 Lymph % (Auto) (13.4-35.0) % [place] % (Auto) (0.0-7.3) % Potassium (3.6-5.0) mmol/L Chloride (98-107) mmol/L Carbon Dioxide (22-30) mmol/L BUN (7-17) mg/dL Creatinine (0.7-1.2) mg/dL Glucose (65-100) mg/dL POC Glucose 112 H (70-105) Calcium (8.4-10.2) mg/dL Magnesium (1.7-2.3) mg/dL Assessment and Plan This pt has a h/o renal ca (s/p nephrectomy) presents with progressive renal failure and hyperkalemia. She was evaluated by Nephrology who recommend initiation of HD. A vascular surgery consult is requested to evaluate for PC placement. The risk, benefits, and alternatives to the procedure were discussed in great detail. She states understanding and agrees to proceed. This will be scheduled for the pharmacy laboratory technician utilizing fluoroscopic and u/s guidance. Recommend no further venipunctures in the LUE in the event she requires correction AVF access. - Patient Problems (1) Acute on chronic kidney failure Current Visit: No Status: Acute Qualifiers: Chronic kidney disease stage: stage 5, not on chronic dialysis (2) Hypertensive chronic kidney disease with stage 5 chronic kidney disease or end stage renal disease Current Visit: Yes Status: Acute (3) Hyperkalemia Current Visit: Yes Status: Acute (4) Malignant hypertension Current Visit: Yes Status: Acute (5) Insulin dependent diabetes mellitus Current Visit: No Status: Acute
[2018-09-26] MEDS: XYLOCAINE 2% INFILTRATI ONE ×2 (15:47→15:48)
--- NOTE | 2018-09-26 16:05 | Operative Report ---
Operative Report Operative Report: Date of procedure: 09/26/2018 Pre-operative diagnosis: ESRD Post-operative diagnosis: same Procedure name(s): 1. US guided puncture of the right internal jugular vein 2. Placement of right internal jugular permacath (Glidepath 23cm) 3. Fluoroscopic supervision Surgeon: Chet Barnett MD, FACS Department Director: none Anesthesia: local with sedation; Sedation start: 1545 Sedation end: 1602 Total sedation time: 17 minutes or 2 anesthesia units EBL: minimal Operative indication: Patient is a 53 yo woman who requires hemodialysis access. Findings: Good flow from both ports. Catheter located at the cavoatrial junction. Procedure: The patient was placed on the table in the supine position. The area over the right neck and chest was prepped with ChloraPrep solution and draped in usual sterile fashion. 2% lidocaine was used for local anesthesia. Under real-time ultrasound guidance the right internal jugular vein was identified and cannulated. A guidewire was advanced into the central circulation. A tunnel was made over the anterior chest using the tunneling device in the kit. The catheter was then tunneled between the 2 incisions. Using a series of dilators, the track into the jugular vein was dilated. The introducer sheath was then placed. The catheter was placed through the introducer sheath which was then removed. The catheter tip was placed at the cavoatrial junction. The catheters were aspirated with excellent flow from both ports. Both ports flushed easily. They were then filled to their stated volume with 1000 unit per milliliter heparin. Closure at the insertion site was done with 4-0 subcuticular Monocryl. The catheter was sewn to the skin with 2-0 Proline. Sterile dressings were applied. The patient tolerated the procedure well.
[2018-09-26] MEDS ORDERED: APRESOLINE IV ONE (19:34)
[2018-09-26] MEDS ORDERED: DILAUDID IV ONE (19:36)
[2018-09-26] MEDS ORDERED: SODIUM CHLORIDE FLUSH SYRINGE 10 ML IV PRN (20:21)
[2018-09-26] MEDS ORDERED: ZOFRAN IV PRN (20:21)
[2018-09-26] MEDS ORDERED: REGLAN IV PRN ×2 (20:21→20:39)
[2018-09-26] MEDS ORDERED: DILAUDID IV PRN (20:21)
[2018-09-26] MEDS ORDERED: TYLENOL PO PRN (20:21)
[2018-09-26] MEDS ORDERED: APRESOLINE IV PRN (20:26)
[2018-09-26] MEDS ORDERED: METOPROLOL SUCCINATE 200 MG PO SCH (20:30)
[2018-09-26] MEDS: TOPROL XL PO SCH (21:38)
[2018-09-26] MEDS: PROCARDIA XL PO SCH (21:38)
[2018-09-26] MEDS: BABY ASPIRIN PO SCH (21:43)
[2018-09-26] MEDS ORDERED: LANTUS SUB-Q SCH (22:00)
[2018-09-26] MEDS ORDERED: NON-FORMULARY (Ranitidine Hcl [Acid Reducer] 150 MG) PO SCH (22:00)
[2018-09-26] MEDS ORDERED: ALDACTONE PO SCH (22:00)
[2018-09-26] MEDS ORDERED: INSULIN GLARGINE HUM REC ANLOG 37 UNIT SUB-Q SCH (22:00)
[2018-09-26] MEDS: APRESOLINE PO SCH (22:23)
[2018-09-26] MEDS: SODIUM CHLORIDE FLUSH SYRINGE 10 ML IV SCH (22:25)
[2018-09-26] MEDS: PEPCID PO SCH (22:25)
[2018-09-26] MEDS: ROCALTROL PO SCH (22:33)
[2018-09-26] MEDS ORDERED: NACL 0.9 (PRIMING MACHINE ONLY DIALYSIS) MC ONE (23:27)
--- NOTE | 2018-09-27 05:46 | Event Note ---
Date: 09/26/18 See H/p in reports ESRD needing HD-New onset IDDM HTN Paresthesias--Nonspecific
[2018-09-27] MEDS: APRESOLINE PO SCH ×3 (05:55→22:28)
[2018-09-27] MEDS ORDERED: MAGNESIUM SULFATE 2GM/50ML 2 GM/50 ML BAG IV ONE (05:55)
[2018-09-27 05:58] LABS: Basophils # (Auto) 0.1 K/mm3 (0.0-0.1); Basophils % (Auto) 0.8 % (0.0-1.8); Eosinophils % (Auto) 0.4 % (0.0-4.3); Hemoglobin 11.3 gm/dl (10.1-14.3); Lymphocytes # (Auto) 1.1 K/mm3 (1.2-5.4); Lymphocytes % (Auto) 12.7 % (13.4-35.0); Mean Corpuscular HGB Conc 33 % (30-34); Mean Corpuscular Volume 92 fl (79-97); Monocytes # (Auto) 0.5 K/mm3 (0.0-0.8); Monocytes % (Auto) 5.5 % (0.0-7.3); Platelet Count 186 K/mm3 (140-440); Red Blood Count 3.69 M/mm3 (3.65-5.03); Red Cell Distribution Width 13.7 % (13.2-15.2)
--- NOTE | 2018-09-27 06:36 | History and Physical Report ---
CHIEF COMPLAINT: 1. Generalized weakness. 2. Tingling and numbness in both hands. HISTORY OF PRESENT ILLNESS: A 53-year-old female with history of hypertension, insulin-dependent diabetes, hyperlipidemia, and chronic kidney disease, presents with paresthesias in both hands. She had similar symptoms before, was treated and sent home. No acute CVA in the past. Also has generalized weakness. The patient was noted to have increased creatinine, necessitating emergent hemodialysis. The patient had right nephrectomy secondary to renal carcinoma in the past. Since then, her kidney function has been worsening. Her raised printer is associated with [facility]. Does not have a local raised printer. Dr. Magdaleno is telephone betting clerk for Nephrology today. PAST MEDICAL HISTORY: As mentioned, insulin-dependent diabetes, hypertension, hyperlipidemia, GERD and chronic kidney disease. PAST SURGICAL HISTORY: Ovarian cyst removed and right kidney removed. SOCIAL HISTORY: Former smoker about half a pack a day. FAMILY HISTORY: Hypertension in mother. REVIEW OF SYSTEMS: Significant for generalized weakness and paresthesias in both hands and the periorbital area. Otherwise, review of systems negative. A 14-point review of systems done. PHYSICAL EXAMINATION: GENERAL: Middle-aged female, cooperative during examination. VITAL SIGNS: Blood pressure was 180/90, temperature 98.8, pulse is 99, respirations 18. HEENT: Unremarkable. Pupils equal and reactive. NECK: Supple, no lymphadenopathy, no thyromegaly. LUNGS: Clear to auscultation and percussion. Good air entry. CARDIOVASCULAR SYSTEM: S1, S2 heard. No gallop, no murmur, no rub. Apical impulse in left fifth intercostal space in midclavicular line. ABDOMEN: Soft and benign. No hepatosplenomegaly. No guarding, no rigidity. Hernial orifices are normal. EXTREMITIES: Good pedal pulses. No pedal edema. CENTRAL NERVOUS SYSTEM: Alert and oriented x 4, nonfocal exam. Power is 5/5 in all 4 extremities. Sensory exam is normal. LABORATORY DATA: Significant for white count of 6400, hemoglobin of 10.5, hematocrit of 32.2, platelet count of 211,000. Sodium is 139. Potassium is 5.7. Chloride is 110, BUN and creatinine is 67 and 7.2. Glucose is 126. Hepatitis profile is nonreactive. Magnesium is 1.2, calcium is 7.9. DIAGNOSTIC DATA: Head CT was normal. No acute findings. EKG shows normal sinus rhythm, no acute ST-T wave changes. ASSESSMENT AND PLAN: 1. End-stage renal disease, needing dialysis. Vascular Surgery consult was requested for emergent vascular catheter placement, so that emergent dialysis can be started. Nephrology consulted. Dr. Chopra's group telephone betting clerk. 2. Paresthesias, nonspecific. No transient ischemic attack, no cerebrovascular accident. No cerebrovascular accident workup initiated. The patient had workup in the past. Metabolic abnormalities including high BUN and creatinine, hypomagnesemia and hypocalcemia may be causing the symptoms of paraesthesias periorbitally. 3. Insulin-dependent diabetes. Continue home insulin and coverage. Check hemoglobin A1c. 4. Hyperlipidemia. Continue statins. 5. Hypertensive emergency. Continue home antihypertensives and hydralazine p.r.n. Will add hydralazine p.o. if necessary. 6. Hypomagnesemia, IV magnesium given. 7. Hypocalcemia. Calcium gluconate given. 8. Hyperkalemia. The patient to get emergent dialysis. Also, the patient to get Kayexalate and sodium bicarbonate in the Emergency Room. Will hold the spironolactone. 9. Deep venous thrombosis prophylaxis, heparin 5000 q. 12. JOB# [id number] VSM/NTS
[2018-09-27 06:59] LABS: Albumin 3.6 g/dL (3.9-5); Calcium 8.2 mg/dL (8.4-10.2)
[2018-09-27] MEDS: HumaLOG SUB-Q SCH ×7 (07:30→21:36)
--- NOTE | 2018-09-27 07:48 | Progress Note ---
Assessment and Plan - Patient Problems (1) Hyperkalemia Current Visit: Yes Status: Acute Plan to address problem: K normalized s/p medical treatment and HD. cont 2g k renal diet (2) End-stage renal disease (ESRD) Current Visit: Yes Status: Acute Plan to address problem: advanced CKD now approached ESRD. initiated on HD on 09/26, second HD scheduled today . Case management to assist outpatient HD placement. (3) Type 2 diabetes mellitus with diabetic chronic kidney disease Current Visit: Yes Status: Acute Plan to address problem: glucose control as per primary attending (4) Hypertensive chronic kidney disease with stage 5 chronic kidney disease or end stage renal disease Current Visit: Yes Status: Acute Plan to address problem: BP elevated, resume home BP meds. once HD initiated, will increase UF as tolerated for further volume/BP control. (5) Hypomagnesemia Current Visit: Yes Status: Acute Plan to address problem: pt given 1g Mg sulfate, check repeat Mg level (6) Metabolic acidosis Current Visit: Yes Status: Acute Plan to address problem: corrected Subjective Date of service: 09/27/18 Principal diagnosis: ESRD Interval history: Pt awake, alert, in NAD, tolerated HD well yesterday. Denies CP, SOB, fever, chills, n/v/d Objective - Vital Signs Vital signs: Vital Signs - 12hr 09/26/18 09/26/18 09/26/18 20:07 21:38 21:44 Temperature Pulse Rate 95 H 74 Respiratory 18 Rate Blood Pressure 215/91 180/90 O2 Sat by Pulse Oximetry 09/26/18 09/26/18 09/26/18 21:48 22:23 22:27 Temperature 98.0 F Pulse Rate 99 H 98 H 98 H Respiratory 20 Rate Blood Pressure 162/84 162/84 162/84 O2 Sat by Pulse 93 Oximetry 09/27/18 05:55 Temperature Pulse Rate 92 H Respiratory Rate Blood Pressure 169/80 O2 Sat by Pulse Oximetry - General Appearance General appearance: well-developed, well-nourished, appears stated age EENT: ATNC, PERRL, mucous membranes moist Neck: no JVD, other (R permcath ) Respiratory: Present: Clear to Ascultation Cardiology: regular, S1S2 Gastrointestinal: normoactive bowel sounds Integumentary: no rash, other (no edema ) Neurologic: no focal deficit, alert and oriented x3, strength 5/5, CN 3-12 intact Psychiatric: mood/affect appropriate, cooperative - Lab 09/27/18 05:36 09/27/18 05:36 Most recent lab results Calcium 8.2 mg/dL (8.4-10.2) L 09/27/18 05:36 Magnesium 1.20 mg/dL (1.7-2.3) L 09/26/18 08:35 Medications & Allergies - Medications Allergies/Adverse Reactions: Allergies lisinopril Allergy (Verified 09/26/18 15:30) Swelling Sulfa (Sulfonamide Antibiotics) Allergy (Verified 09/26/18 15:30) Swelling Home Medications: Home Medications Medication Instructions Recorded Confirmed Last Taken Type Lispro Insulin [Humalog] 15 units SUB-Q TID 07/16/18 09/26/18 09/25/18 History Metoprolol Succinate [Toprol Xl] 200 mg PO DAILY 07/16/18 09/26/18 09/26/18 History NIFEdipine [Nifedipine ER] 60 mg PO DAILY 07/16/18 09/26/18 09/26/18 History Atorvastatin Calcium 40 mg PO QDAY 07/17/18 09/26/18 09/26/18 History Esomeprazole Magnesium [Nexium] 40 mg PO QAM 07/17/18 09/26/18 09/26/18 History Ranitidine HCl [Acid Mooner] 150 mg PO QHS 07/17/18 09/26/18 09/25/18 History Aspirin [Aspirin BABY CHEW TAB] 81 mg PO QDAY #30 tab.chew 07/19/18 09/26/18 09/26/18 Rx hydrALAZINE [Apresoline TAB] 50 mg PO Q8HR #90 tablet 07/19/18 09/26/18 09/26/18 Rx Budesonide/Formoterol Fumarate 2 puff IH QAM 09/26/18 09/26/18 Unknown History [Symbicort 160-4.5 Mcg Inhaler] Calcitriol [Rocaltrol] 0.5 mcg PO QDAY 09/26/18 09/26/18 09/26/18 History Insulin Glargine,Hum.rec.anlog 37 units SUB-Q HS 09/26/18 09/26/18 Unknown History [Lantus Solostar] Spironolactone [Aldactone] 50 mg PO BID 09/26/18 09/26/18 Unknown History Active Medications: Generic Name Dose Route Start Last Admin Trade Name Freq PRN Reason Stop Dose Admin Acetaminophen 650 mg 09/26/18 20:21 Tylenol PO Q4H PRN Pain MILD(1-3)/Fever >100.5/CARR Arformoterol Tartrate 15 mcg 09/27/18 08:00 Brovana Nebu IH Q12HRT [facility] Aspirin 81 mg 09/26/18 21:00 09/26/18 21:43 Baby Aspirin PO 81 mg QDAY [facility] Administration Atorvastatin Calcium 40 mg 09/26/18 22:00 09/26/18 22:25 Lipitor PO 40 mg QHS [facility] Administration Budesonide 1 mg 09/27/18 08:00 Pulmicort IH Q12HRT [facility] Calcitriol 0.5 mcg 09/26/18 21:00 09/26/18 22:33 Rocaltrol PO 0.5 mcg QDAY [facility] Administration Famotidine 20 mg 09/26/18 22:00 09/26/18 22:25 Pepcid PO 20 mg QHS [facility] Administration Heparin Sodium (Porcine) 5,000 unit 09/27/18 10:00 Heparin SUB-Q Q12HR [facility] Hydralazine HCl 50 mg 09/26/18 22:00 09/27/18 05:55 Apresoline PO 50 mg Q8HR KJ Administration Hydralazine HCl 10 mg 09/26/18 20:26 Apresoline IV 09/28/18 23:59 Q3H PRN Blood Pressure Hydromorphone HCl 0.5 mg 09/26/18 20:21 Dilaudid IV Q3H PRN Pain , Severe (7-10) Sodium Chloride 100 mls @ 999 mls/hr 09/26/18 21:08 Nacl 0.9% IV MORRIS PRN Hypotension Magnesium Sulfate 2 gm in 50 mls @ 25 mls/hr 09/27/18 05:55 Magnesium Sulfate 2gm/50ml IV 09/27/18 07:54 ONCE ONE Insulin Glargine 37 units 09/26/18 22:00 09/26/18 22:33 Lantus SUB-Q 37 units QHS KJ Administration Insulin Human Lispro 15 unit 09/27/18 07:30 Humalog SUB-Q TIDAC [facility] Insulin Human Lispro 0 unit 09/27/18 07:30 Humalog SUB-Q ACHS [facility] Protocol Metoclopramide HCl 5 mg 09/26/18 20:39 Reglan IV Q6H PRN Nausea And Vomiting Metoprolol Succinate 200 mg 09/26/18 21:00 09/26/18 21:38 Toprol Xl PO 200 mg QDAY KJ Administration Nifedipine 60 mg 09/26/18 21:00 09/26/18 21:38 Procardia Xl PO 60 mg DAILY KJ Administration Ondansetron HCl 4 mg 09/26/18 20:21 Zofran IV Q8H PRN Nausea And Vomiting Oxycodone/Acetaminophen 1 tab 09/26/18 20:21 Percocet 5/325 PO Q6H PRN Pain, Moderate (4-6) Pantoprazole Sodium 40 mg 09/27/18 10:00 Protonix PO DAILY KJ Sodium Chloride 10 ml 09/26/18 22:00 09/26/18 22:25 Sodium Chloride Flush Syringe 10 Ml IV 10 ml BID KJ Administration Sodium Chloride 10 ml 09/26/18 20:21 Sodium Chloride Flush Syringe 10 Ml IV PRN PRN LINE FLUSH
[2018-09-27] MEDS: BROVANA NEBU IH SCH ×2 (08:17→19:47)
[2018-09-27] MEDS: PULMICORT IH SCH ×2 (08:17→19:47)
[2018-09-27] MEDS ORDERED: NACL 0.9 (PRIMING MACHINE ONLY DIALYSIS) MC ONE (09:43)
[2018-09-27] MEDS ORDERED: NON-FORMULARY (Esomeprazole Magnesium [Nexium] 40 MG) PO SCH (10:00)
[2018-09-27] MEDS ORDERED: NON-FORMULARY (Budesonide/Formoterol Fumarate [Symbicort 160-4.5 Mcg Inhaler] 2 PUFF) IH SCH (10:00)
[2018-09-27] MEDS: HEPARIN SUB-Q SCH ×2 (10:00→22:30)
[2018-09-27] MEDS: PROCARDIA XL PO SCH (14:20)
[2018-09-27] MEDS: TOPROL XL PO SCH (14:20)
[2018-09-27] MEDS: BABY ASPIRIN PO SCH (14:21)
[2018-09-27] MEDS: PROTONIX PO SCH (14:21)
[2018-09-27] MEDS: PERCOCET 5/325 PO PRN (14:21)
[2018-09-27] MEDS: SODIUM CHLORIDE FLUSH SYRINGE 10 ML IV SCH ×2 (14:22→22:30)
[2018-09-27] MEDS: ROCALTROL PO SCH (14:22)
--- NOTE | 2018-09-27 15:39 | Progress Note ---
Assessment and Plan - Patient Problems (1) ESRD on hemodialysis Current Visit: Yes Status: Acute Plan to address problem: Had HD Patient needs HD chair Case management to arrange for chair (2) Hyperkalemia Current Visit: Yes Status: Acute Plan to address problem: Corrected (3) IDDM (insulin dependent diabetes mellitus) Current Visit: Yes Status: Chronic Plan to address problem: Hba1c 7.9 Insulin dosage adjusted (4) Paresthesia Current Visit: Yes Status: Acute Plan to address problem: Secondary to metabolic abnormalities (5) HTN (hypertension) Current Visit: Yes Status: Chronic Qualifiers: Hypertension type: essential hypertension Qualified Code(s): I10 - Essential (primary) hypertension Plan to address problem: COnt antihypertensives (6) DVT prophylaxis Current Visit: Yes Status: Acute Plan to address problem: On Heparin and GI prophylaxis Subjective Date of service: 09/27/18 Principal diagnosis: ESRD Interval history: 53 yo AAF with past medical history of Hypertension, type 2 DM, h/o renal carcinoma with R nephrectomy in 2013, CKD stage 5, secondary hyperparathyroidism, who has been following with Dr Rosenberg for preparation of future renal renal placement, presents to [facility] ER with complaints of per iorbital paresthesias and intermittent paresthesias bilateral hands. labs showed elevated BUN/Cr at 67/4.2mg/dl, hyperkalemia iwth K > 5.7 along with serum bicarb of 15. Compared to office labs (BUN/Cr at 71/5.36mg/dl on 08/29/18) renal function is worsening.Patient had wemergent Vascath and HD. Objective - Constitutional Vitals: Vital Signs - 12hr 09/27/18 09/27/18 09/27/18 05:47 05:55 08:15 Temperature 98.2 F 98.0 F Pulse Rate 93 H 92 H 92 H Respiratory 20 18 Rate Blood Pressure 154/85 169/80 144/82 O2 Sat by Pulse 93 Oximetry 09/27/18 09/27/18 09/27/18 08:30 08:45 09:00 Temperature Pulse Rate 90 93 H 88 Respiratory Rate Blood Pressure 159/92 150/91 140/85 O2 Sat by Pulse Oximetry 09/27/18 09/27/18 09/27/18 09:15 09:30 09:45 Temperature Pulse Rate 90 85 64 Respiratory Rate Blood Pressure 137/86 141/80 87/47 O2 Sat by Pulse Oximetry 09/27/18 09/27/18 09/27/18 09:50 10:00 10:15 Temperature Pulse Rate 71 74 72 Respiratory Rate Blood Pressure 136/71 134/73 134/56 O2 Sat by Pulse Oximetry 09/27/18 09/27/18 09/27/18 10:30 10:45 11:00 Temperature Pulse Rate 70 71 72 Respiratory Rate Blood Pressure 152/83 147/89 152/83 O2 Sat by Pulse Oximetry 09/27/18 09/27/18 09/27/18 11:15 11:20 12:49 Temperature 98.0 F 97.3 F L Pulse Rate 71 72 81 Respiratory 18 18 Rate Blood Pressure 150/76 161/82 152/84 O2 Sat by Pulse 97 Oximetry General appearance: Present: no acute distress, well-nourished - EENT Eyes: PERRL, EOM intact ENT: hearing intact, clear oral mucosa Ears: bilateral: normal - Neck Neck: supple, normal ROM - Respiratory Respiratory effort: normal Respiratory: bilateral: CTA - Breasts Breasts: normal - Cardiovascular Heart rate: 78 Rhythm: regular Heart Sounds: Present: S1 & S2. Absent: gallop, rub Extremities: no ischemia, pulses intact, No edema, normal color, Full ROM - Gastrointestinal General gastrointestinal: Present: soft, non-tender, non-distended, normal bowel sounds - Genitourinary Female genitourinary: normal - Integumentary Integumentary: clear, warm, dry - Musculoskeletal Musculoskeletal: 1, strength equal bilaterally - Neurologic Neurologic: moves all extremities - Psychiatric Psychiatric: memory intact, appropriate mood/affect, intact judgment & insight - Allied health notes Allied health notes reviewed: nursing, case management - Labs CBC & Chem 7: 09/27/18 05:36 09/27/18 05:36 Labs: Abnormal lab results 09/26/18 09/26/18 09/26/18 Range/Units 08:26 20:49 21:49 Lymph % (Auto) (13.4-35.0) % Lymph # (1.2-5.4) K/mm3 Seg Neutrophils % (40.0-70.0) % BUN (7-17) mg/dL Creatinine (0.7-1.2) mg/dL Glucose (65-100) mg/dL POC Glucose 126 H 259 H (70-105) Hemoglobin A1c 7.9 H (4-6) % Calcium (8.4-10.2) mg/dL Albumin (3.9-5) g/dL 09/27/18 09/27/18 09/27/18 Range/Units 05:36 05:36 07:55 Lymph % (Auto) 12.7 L (13.4-35.0) % Lymph # 1.1 L (1.2-5.4) K/mm3 Seg Neutrophils % 80.6 H (40.0-70.0) % BUN 43 H (7-17) mg/dL Creatinine 5.3 H (0.7-1.2) mg/dL Glucose 213 H (65-100) mg/dL POC Glucose 160 H (70-105) Hemoglobin A1c (4-6) % Calcium 8.2 L (8.4-10.2) mg/dL Albumin 3.6 L (3.9-5) g/dL 09/27/18 Range/Units 12:02 Lymph % (Auto) (13.4-35.0) % Lymph # (1.2-5.4) K/mm3 Seg Neutrophils % (40.0-70.0) % BUN (7-17) mg/dL Creatinine (0.7-1.2) mg/dL Glucose (65-100) mg/dL POC Glucose 173 H (70-105) Hemoglobin A1c (4-6) % Calcium (8.4-10.2) mg/dL Albumin (3.9-5) g/dL
[2018-09-27] MEDS ORDERED: LANTUS SUB-Q SCH (15:42)
[2018-09-27] MEDS: PEPCID PO SCH (22:28)
[2018-09-28] MEDS: PERCOCET 5/325 PO PRN ×3 (01:27→22:56)
[2018-09-28] MEDS: APRESOLINE PO SCH ×3 (06:17→22:53)
[2018-09-28 07:01] LABS: Basophils # (Auto) 0.1 K/mm3 (0.0-0.1); Basophils % (Auto) 0.7 % (0.0-1.8); Eosinophils # (Auto) 0.2 K/mm3 (0.0-0.4); Hematocrit 33.6 % (30.3-42.9); Hemoglobin 11.2 gm/dl (10.1-14.3); Lymphocytes # (Auto) 2.4 K/mm3 (1.2-5.4); Mean Corpuscular HGB Conc 34 % (30-34); Mean Corpuscular Volume 92 fl (79-97); Monocytes # (Auto) 0.6 K/mm3 (0.0-0.8); Monocytes % (Auto) 7.8 % (0.0-7.3); Platelet Count 172 K/mm3 (140-440); Red Blood Count 3.64 M/mm3 (3.65-5.03); Red Cell Distribution Width 13.4 % (13.2-15.2)
--- NOTE | 2018-09-28 07:13 | Progress Note ---
Assessment and Plan - Patient Problems (1) Hyperkalemia Current Visit: Yes Status: Acute Plan to address problem: K normalized s/p medical treatment and HD. cont 2g k renal diet (2) End-stage renal disease (ESRD) Current Visit: Yes Status: Acute Plan to address problem: advanced CKD now approached ESRD. initiated on HD on 09/26, cont MWF schedule. Case management to assist outpatient HD placement. (3) Type 2 diabetes mellitus with diabetic chronic kidney disease Current Visit: Yes Status: Acute Plan to address problem: glucose control as per primary attending (4) Hypertensive chronic kidney disease with stage 5 chronic kidney disease or end stage renal disease Current Visit: Yes Status: Acute Plan to address problem: BP elevated, resume home BP meds. once HD initiated, will increase UF as tolerated for further volume/BP control. (5) Hypomagnesemia Current Visit: Yes Status: Acute Plan to address problem: pt given 1g Mg sulfate, check repeat Mg level (6) Metabolic acidosis Current Visit: Yes Status: Acute Plan to address problem: corrected Subjective Date of service: 09/28/18 Principal diagnosis: ESRD Interval history: Pt awake, alert, in NAD, tolerated HD well. Denies CP, SOB, fever, chills, n/v/d Objective - Vital Signs Vital signs: Vital Signs - 12hr 09/27/18 09/27/18 09/27/18 19:48 20:06 22:00 Temperature Pulse Rate Pulse Rate [ 73 77 Throughout] Respiratory 18 Rate Respiratory 14 16 Rate [ Throughout] Blood Pressure O2 Sat by Pulse 98 Oximetry 09/27/18 09/27/18 09/28/18 22:28 23:13 01:27 Temperature 97.9 F Pulse Rate 71 71 Pulse Rate [ Throughout] Respiratory 20 18 Rate Respiratory Rate [ Throughout] Blood Pressure 184/81 155/70 O2 Sat by Pulse 95 Oximetry 09/28/18 09/28/18 09/28/18 02:27 05:09 06:17 Temperature 97.9 F Pulse Rate 70 70 Pulse Rate [ Throughout] Respiratory 17 20 Rate Respiratory Rate [ Throughout] Blood Pressure 158/83 158/83 O2 Sat by Pulse 97 Oximetry - General Appearance General appearance: well-developed, well-nourished, appears stated age EENT: ATNC, PERRL, mucous membranes moist Neck: no JVD Respiratory: Present: Clear to Ascultation Cardiology: regular, S1S2 Gastrointestinal: normoactive bowel sounds Integumentary: no rash, other (no edema ) Neurologic: no focal deficit, alert and oriented x3, strength 5/5, CN 3-12 intact Psychiatric: mood/affect appropriate, cooperative - Lab 09/28/18 05:27 09/27/18 05:36 Most recent lab results Calcium 8.2 mg/dL (8.4-10.2) L 09/27/18 05:36 Magnesium 1.20 mg/dL (1.7-2.3) L 09/26/18 08:35 Medications & Allergies - Medications Allergies/Adverse Reactions: Allergies lisinopril Allergy (Verified 09/26/18 15:30) Swelling Sulfa (Sulfonamide Antibiotics) Allergy (Verified 09/26/18 15:30) Swelling Home Medications: Home Medications Medication Instructions Recorded Confirmed Last Taken Type Lispro Insulin [Humalog] 15 units SUB-Q TID 07/16/18 09/26/18 09/25/18 History Metoprolol Succinate [Toprol Xl] 200 mg PO DAILY 07/16/18 09/26/18 09/26/18 History NIFEdipine [Nifedipine ER] 60 mg PO DAILY 07/16/18 09/26/18 09/26/18 History Atorvastatin Calcium 40 mg PO QDAY 07/17/18 09/26/18 09/26/18 History Esomeprazole Magnesium [Nexium] 40 mg PO QAM 07/17/18 09/26/18 09/26/18 History Ranitidine HCl [Acid [employer]] 150 mg PO QHS 07/17/18 09/26/18 09/25/18 History Aspirin [Aspirin BABY CHEW TAB] 81 mg PO QDAY #30 tab.chew 07/19/18 09/26/18 09/26/18 Rx hydrALAZINE [Apresoline TAB] 50 mg PO Q8HR #90 tablet 07/19/18 09/26/18 09/26/18 Rx Budesonide/Formoterol Fumarate 2 puff IH QAM 09/26/18 09/26/18 Unknown History [Symbicort 160-4.5 Mcg Inhaler] Calcitriol [Rocaltrol] 0.5 mcg PO QDAY 09/26/18 09/26/18 09/26/18 History Insulin Glargine,Hum.rec.anlog 37 units SUB-Q HS 09/26/18 09/26/18 Unknown History [Lantus Solostar] Spironolactone [Aldactone] 50 mg PO BID 09/26/18 09/26/18 Unknown History Active Medications: Generic Name Dose Route Start Last Admin Trade Name Freq PRN Reason Stop Dose Admin Acetaminophen 650 mg 09/26/18 20:21 Tylenol PO Q4H PRN Pain MILD(1-3)/Fever >100.5/CARR Arformoterol Tartrate 15 mcg 09/27/18 08:00 09/27/18 19:47 Brovana Nebu IH 15 mcg Q12HRT KJ Administration Aspirin 81 mg 09/26/18 21:00 09/27/18 14:21 Baby Aspirin PO 81 mg QDAY KJ Administration Atorvastatin Calcium 40 mg 09/26/18 22:00 09/27/18 22:29 Lipitor PO 40 mg QHS KJ Administration Budesonide 1 mg 09/27/18 08:00 09/27/18 19:47 Pulmicort IH 1 mg Q12HRT KJ Administration Calcitriol 0.5 mcg 09/26/18 21:00 09/27/18 14:22 Rocaltrol PO 0.5 mcg QDAY KJ Administration Famotidine 20 mg 09/26/18 22:00 09/27/18 22:28 Pepcid PO 20 mg QHS KJ Administration Heparin Sodium (Porcine) 5,000 unit 09/27/18 10:00 09/27/18 22:30 Heparin SUB-Q 5,000 unit Q12HR KJ Administration Hydralazine HCl 50 mg 09/26/18 22:00 09/28/18 06:17 Apresoline PO 50 mg Q8HR KJ Administration Hydralazine HCl 10 mg 09/26/18 20:26 Apresoline IV 09/28/18 23:59 Q3H PRN Blood Pressure Hydromorphone HCl 0.5 mg 09/26/18 20:21 Dilaudid IV Q3H PRN Pain , Severe (7-10) Sodium Chloride 100 mls @ 999 mls/hr 09/26/18 21:08 Nacl 0.9% IV MORRIS PRN Hypotension Insulin Glargine 45 units 09/27/18 15:42 09/27/18 21:36 Lantus SUB-Q Not Given QHS KJ Insulin Human Lispro 15 unit 09/27/18 07:30 09/27/18 17:18 Humalog SUB-Q 15 unit TIDAC KJ Administration Insulin Human Lispro 0 unit 09/27/18 07:30 09/27/18 21:36 Humalog SUB-Q Not Given ACHS [facility] Protocol Metoclopramide HCl 5 mg 09/26/18 20:39 Reglan IV Q6H PRN Nausea And Vomiting Metoprolol Succinate 200 mg 09/26/18 21:00 09/27/18 14:20 Toprol Xl PO 200 mg QDAY KJ Administration Nifedipine 60 mg 09/26/18 21:00 09/27/18 14:20 Procardia Xl PO 60 mg DAILY KJ Administration Ondansetron HCl 4 mg 09/26/18 20:21 09/27/18 09:45 Zofran IV 4 mg Q8H PRN Administration Nausea And Vomiting Oxycodone/Acetaminophen 1 tab 09/26/18 20:21 09/28/18 01:27 Percocet 5/325 PO 1 tab Q6H PRN Administration Pain, Moderate (4-6) Pantoprazole Sodium 40 mg 09/27/18 10:00 09/27/18 14:21 Protonix PO 40 mg DAILY KJ Administration Sodium Chloride 10 ml 09/26/18 22:00 09/27/18 22:30 Sodium Chloride Flush Syringe 10 Ml IV 10 ml BID KJ Administration Sodium Chloride 10 ml 09/26/18 20:21 Sodium Chloride Flush Syringe 10 Ml IV PRN PRN LINE FLUSH
[2018-09-28 07:15] LABS: Calcium 8.4 mg/dL (8.4-10.2)
[2018-09-28] MEDS ORDERED: NACL 0.9% 100 ML IV PRN (07:15)
[2018-09-28] MEDS: HumaLOG SUB-Q SCH ×4 (07:30→22:54)
[2018-09-28] MEDS: PULMICORT IH SCH ×2 (07:43→20:06)
[2018-09-28] MEDS: BROVANA NEBU IH SCH ×2 (07:43→20:07)
[2018-09-28] MEDS: BABY ASPIRIN PO SCH (09:28)
[2018-09-28] MEDS: PROTONIX PO SCH (09:28)
[2018-09-28] MEDS: PROCARDIA XL PO SCH (09:28)
[2018-09-28] MEDS: TOPROL XL PO SCH (09:28)
[2018-09-28] MEDS: ROCALTROL PO SCH (09:28)
[2018-09-28] MEDS: HEPARIN SUB-Q SCH ×2 (09:29→22:54)
[2018-09-28] MEDS: SODIUM CHLORIDE FLUSH SYRINGE 10 ML IV SCH ×2 (09:30→22:57)
--- NOTE | 2018-09-28 11:27 | Progress Note ---
Assessment and Plan Assessment and plan: (1) New ESRD on HD -s/p vas cath placement. -awaiting out-pt HD chair -air battle manager following (2) Hyperkalemia -resolved (3) Hypertension -BP improved on current antihypertensives, adjust as needed (4) Insulin-dependent T2DM (type 2 diabetes mellitus) -Insulin regimen adjusted due to hypoglycemia, continue adjustments as needed (5) Renal osteodystrophy, chronic -cont calcitriol (6) HLD -Continue statin (7) Hypomagnesemia -We'll recheck mg level in a.m. (8) DVT prophylaxis -On heparin Disposition: Patient is awaiting outpatient HD chair History Interval history: Patient has no new complaints. Hospitalist Physical - Constitutional Vitals: Temp Pulse Resp BP Pulse Ox 97.9 F 70 18 158/83 97 09/28/18 05:09 09/28/18 07:47 09/28/18 07:47 09/28/18 06:17 09/28/18 07:46 General appearance: Present: no acute distress, obese - EENT Eyes: Present: PERRL, EOM intact ENT: hearing intact, clear oral mucosa - Neck Neck: Present: supple - Respiratory Respiratory effort: normal Respiratory: bilateral: CTA - Cardiovascular Rhythm: regular Heart Sounds: Present: S1 & S2 - Extremities Extremities: No edema - Abdominal General gastrointestinal: soft, non-tender, normal bowel sounds - Integumentary Integumentary: Present: clear, warm, dry - Neurologic Neurologic: CNII-XII intact Results - Labs CBC & Chem 7: 09/28/18 05:27 09/28/18 05:27 Labs: Laboratory Last Values WBC 8.0 K/mm3 (4.5-11.0) 09/28/18 05:27 RBC 3.64 M/mm3 (3.65-5.03) L 09/28/18 05:27 Hgb 11.2 gm/dl (10.1-14.3) 09/28/18 05:27 Hct 33.6 % (30.3-42.9) 09/28/18 05:27 MCV 92 fl (79-97) 09/28/18 05:27 MCH 31 pg (28-32) 09/28/18 05:27 MCHC 34 % (30-34) 09/28/18 05:27 RDW 13.4 % (13.2-15.2) 09/28/18 05:27 Plt Count 172 K/mm3 (140-440) 09/28/18 05:27 Lymph % (Auto) 30.0 % (13.4-35.0) 09/28/18 05:27 [place] % (Auto) 7.8 % (0.0-7.3) H 09/28/18 05:27 Eos % (Auto) 3.0 % (0.0-4.3) 09/28/18 05:27 Baso % (Auto) 0.7 % (0.0-1.8) 09/28/18 05:27 Lymph # 2.4 K/mm3 (1.2-5.4) 09/28/18 05:27 [place] # 0.6 K/mm3 (0.0-0.8) 09/28/18 05:27 Eos # 0.2 K/mm3 (0.0-0.4) 09/28/18 05:27 Baso # 0.1 K/mm3 (0.0-0.1) 09/28/18 05:27 Seg Neutrophils % 58.5 % (40.0-70.0) 09/28/18 05:27 Seg Neutrophils # 4.7 K/mm3 (1.8-7.7) 09/28/18 05:27 PT 13.3 Sec. (12.2-14.9) 09/26/18 08:35 INR 0.95 (0.87-1.13) 09/26/18 08:35 APTT 26.8 Sec. (24.2-36.6) 09/26/18 08:35 Thrombin Time 17.8 Sec. (15.1-19.6) 09/26/18 08:35 Sodium 134 mmol/L (137-145) L D 09/28/18 05:27 Potassium 4.4 mmol/L (3.6-5.0) 09/28/18 05:27 Chloride 96.0 mmol/L (98-107) L 09/28/18 05:27 Carbon Dioxide 25 mmol/L (22-30) 09/28/18 05:27 Anion Gap 17 mmol/L 09/28/18 05:27 BUN 26 mg/dL (7-17) H 09/28/18 05:27 Creatinine 4.7 mg/dL (0.7-1.2) H 09/28/18 05:27 Estimated GFR 12 ml/min 09/28/18 05:27 BUN/Creatinine Ratio 6 % 09/28/18 05:27 Glucose 185 mg/dL (65-100) H 09/28/18 05:27 POC Glucose 162 (70-105) H 09/28/18 07:16 Hemoglobin A1c 7.9 % (4-6) H 09/26/18 20:49 Calcium 8.4 mg/dL (8.4-10.2) 09/28/18 05:27 Magnesium 1.20 mg/dL (1.7-2.3) L 09/26/18 08:35 Total Bilirubin 0.30 mg/dL (0.1-1.2) 09/27/18 05:36 AST 12 units/L (5-40) 09/27/18 05:36 ALT 9 units/L (7-56) 09/27/18 05:36 Alkaline Phosphatase 95 units/L (35-129) 09/27/18 05:36 Troponin T < 0.010 ng/mL (0.00-0.029) 09/26/18 08:35 Total Protein 7.1 g/dL (6.3-8.2) 09/27/18 05:36 Albumin 3.6 g/dL (3.9-5) L 09/27/18 05:36 Albumin/Globulin Ratio 1.0 % 09/27/18 05:36 Hepatitis A IgM Ab Non-reactive (NonReactive) 09/26/18 13:59 Hep Bs Antigen Non-reactive (Negative) 09/26/18 13:59 Hep B Core IgM Ab Non-reactive (NonReactive) 09/26/18 13:59 Hepatitis C Antibody Non-reactive (NonReactive) 09/26/18 13:59 Active Medications - Current Medications Current Medications: Generic Name Dose Route Start Last Admin Trade Name Freq PRN Reason Stop Dose Admin Acetaminophen 650 mg 09/26/18 20:21 Tylenol PO Q4H PRN Pain MILD(1-3)/Fever >100.5/CARR Arformoterol Tartrate 15 mcg 09/27/18 08:00 09/28/18 07:43 Brovana Nebu IH 15 mcg Q12HRT KJ Administration Aspirin 81 mg 09/26/18 21:00 09/28/18 09:28 Baby Aspirin PO 81 mg QDAY [facility] Administration Atorvastatin Calcium 40 mg 09/26/18 22:00 09/27/18 22:29 Lipitor PO 40 mg QHS KJ Administration Budesonide 1 mg 09/27/18 08:00 09/28/18 07:43 Pulmicort IH 0.5 mg Q12HRT KJ Administration Calcitriol 0.5 mcg 09/26/18 21:00 09/28/18 09:28 Rocaltrol PO 0.5 mcg QDAY [facility] Administration Famotidine 20 mg 09/26/18 22:00 09/27/18 22:28 Pepcid PO 20 mg QHS [facility] Administration Heparin Sodium (Porcine) 5,000 unit 09/27/18 10:00 09/28/18 09:29 Heparin SUB-Q 5,000 unit Q12HR KJ Administration Hydralazine HCl 50 mg 09/26/18 22:00 09/28/18 06:17 Apresoline PO 50 mg Q8HR [facility] Administration Hydralazine HCl 10 mg 09/26/18 20:26 Apresoline IV 09/28/18 23:59 Q3H PRN Blood Pressure Hydromorphone HCl 0.5 mg 09/26/18 20:21 Dilaudid IV Q3H PRN Pain , Severe (7-10) Sodium Chloride 100 mls @ 999 mls/hr 09/26/18 21:08 Nacl 0.9% IV MORRIS PRN Hypotension Sodium Chloride 100 mls @ 999 mls/hr 09/28/18 07:15 Nacl 0.9% IV MORRIS PRN Hypotension Insulin Glargine 20 units 09/28/18 22:00 Lantus SUB-Q QHS [facility] Insulin Human Lispro 0 unit 09/27/18 07:30 09/28/18 07:30 Humalog SUB-Q Not Given [facility] Protocol Metoclopramide HCl 5 mg 09/26/18 20:39 Reglan IV Q6H PRN Nausea And Vomiting Metoprolol Succinate 200 mg 09/26/18 21:00 09/28/18 09:28 Toprol Xl PO 200 mg QDAY [facility] Administration Nifedipine 60 mg 09/26/18 21:00 09/28/18 09:28 Procardia Xl PO 60 mg DAILY KJ Administration Ondansetron HCl 4 mg 09/26/18 20:21 09/27/18 09:45 Zofran IV 4 mg Q8H PRN Administration Nausea And Vomiting Oxycodone/Acetaminophen 1 tab 09/26/18 20:21 09/28/18 01:27 Percocet 5/325 PO 1 tab Q6H PRN Administration Pain, Moderate (4-6) Pantoprazole Sodium 40 mg 09/27/18 10:00 09/28/18 09:28 Protonix PO 40 mg DAILY KJ Administration Sodium Chloride 10 ml 09/26/18 22:00 09/28/18 09:30 Sodium Chloride Flush Syringe 10 Ml IV 10 ml BID KJ Administration Sodium Chloride 10 ml 09/26/18 20:21 Sodium Chloride Flush Syringe 10 Ml IV PRN PRN LINE FLUSH Nutrition/Malnutrition Assess - Dietary Evaluation Nutrition/Malnutrition Findings: Nutrition Notes Start: 09/27/18 15:27 Freq: Status: Active Protocol: Document 09/27/18 15:27 RM (Rec: 09/27/18 15:35 RM [id number]) Nutrition Notes Need for Assessment generated from: MD Order,Education Initial or Follow up Assessment Current Diagnosis Diabetes,Hypertension Other Pertinent Diagnosis ESRD on HD Labs/Tests A1c 7.9 Subjective/Other Information Consulted for diet education. Pt stated she had not been previously educated. Reviewed DM and Renal diet education. Gave handouts. #1 Nutrition Diagnosis Food and nutrition-related knowledge deficit Etiology lack of prior education As Evidenced by Signs and Symptoms pt desire for education Nutrition Intervention Teaching Recipient Patient Learning Readiness Good Teaching Methods Discussion,Handout Response to Teaching Verbalize understanding Education Handouts Provided Carbohydrate Counting for People with Diabetes, Renal diet basics Goal #1 Adhere to diet Revisit per MD consult or patient Sign Off request:
[2018-09-28] MEDS: LANTUS SUB-Q SCH (22:51)
[2018-09-28] MEDS: PEPCID PO SCH (22:56)
[2018-09-29] MEDS: APRESOLINE PO SCH ×3 (06:10→22:05)
[2018-09-29 06:31] LABS: Calcium 8.7 mg/dL (8.4-10.2)
[2018-09-29] MEDS: PULMICORT IH SCH ×2 (08:04→20:04)
[2018-09-29] MEDS: BROVANA NEBU IH SCH ×2 (08:04→20:04)
[2018-09-29] MEDS: HumaLOG SUB-Q SCH ×3 (08:37→22:07)
--- NOTE | 2018-09-29 08:53 | Progress Note ---
Assessment and Plan - Patient Problems (1) End-stage renal disease (ESRD) Current Visit: Yes Status: Acute Plan to address problem: Chronic kidney disease stage V progressed to end-stage renal disease. Arrange for outpatient dialysis at [facility] dialysis. (2) Hyperkalemia Current Visit: Yes Status: Acute Plan to address problem: Resolved with dialysis. (3) Hypertensive chronic kidney disease with stage 5 chronic kidney disease or e nd stage renal disease Current Visit: Yes Status: Acute Plan to address problem: Unable to start patient on [place] inhibitor because of history of allergy. Follow up blood pressure on current medications. (4) Hypomagnesemia Current Visit: Yes Status: Acute Plan to address problem: Supplement magnesium and follow up levels (5) Metabolic acidosis Current Visit: Yes Status: Acute Plan to address problem: Resolved with dialysis (6) Type 2 diabetes mellitus with diabetic chronic kidney disease Current Visit: Yes Status: Acute Plan to address problem: Blood sugar management by primary attending Subjective Principal diagnosis: ESRD Objective - Vital Signs Vital signs: Vital Signs - 12hr 09/28/18 09/28/18 09/28/18 22:00 22:53 23:39 Temperature 98.3 F Pulse Rate 69 70 Pulse Rate [ 94 H Right Radial] Pulse Rate [ Throughout] Respiratory 20 20 Rate Respiratory Rate [ Throughout] Blood Pressure 168/81 152/75 O2 Sat by Pulse 94 94 Oximetry 09/29/18 09/29/18 09/29/18 04:54 06:10 08:06 Temperature 98.4 F Pulse Rate 70 70 Pulse Rate [ Right Radial] Pulse Rate [ 69 Throughout] Respiratory 20 Rate Respiratory 16 Rate [ Throughout] Blood Pressure 141/80 141/80 O2 Sat by Pulse 96 Oximetry 09/29/18 08:18 Temperature Pulse Rate Pulse Rate [ Right Radial] Pulse Rate [ 67 Throughout] Respiratory Rate Respiratory 18 Rate [ Throughout] Blood Pressure O2 Sat by Pulse Oximetry - Lab 09/28/18 05:27 09/29/18 05:31 Most recent lab results Calcium 8.7 mg/dL (8.4-10.2) 09/29/18 05:31 Magnesium 1.60 mg/dL (1.7-2.3) L 09/29/18 05:31 Medications & Allergies - Medications Allergies/Adverse Reactions: Allergies lisinopril Allergy (Verified 09/26/18 15:30) Swelling Sulfa (Sulfonamide Antibiotics) Allergy (Verified 09/26/18 15:30) Swelling Home Medications: Home Medications Medication Instructions Recorded Confirmed Last Taken Type Lispro Insulin [Humalog] 15 units SUB-Q TID 07/16/18 09/26/18 09/25/18 History Metoprolol Succinate [Toprol Xl] 200 mg PO DAILY 07/16/18 09/26/18 09/26/18 History NIFEdipine [Nifedipine ER] 60 mg PO DAILY 07/16/18 09/26/18 09/26/18 History Atorvastatin Calcium 40 mg PO QDAY 07/17/18 09/26/18 09/26/18 History Esomeprazole Magnesium [Nexium] 40 mg PO QAM 07/17/18 09/26/18 09/26/18 History Ranitidine HCl [Acid [place] [employer]] 150 mg PO QHS 07/17/18 09/26/18 09/25/18 History Aspirin [Aspirin BABY CHEW TAB] 81 mg PO QDAY #30 tab.chew 07/19/18 09/26/18 09/26/18 Rx hydrALAZINE [Apresoline TAB] 50 mg PO Q8HR #90 tablet 07/19/18 09/26/18 09/26/18 Rx Budesonide/Formoterol Fumarate 2 puff IH QAM 09/26/18 09/26/18 Unknown History [Symbicort 160-4.5 Mcg Inhaler] Calcitriol [Rocaltrol] 0.5 mcg PO QDAY 09/26/18 09/26/18 09/26/18 History Insulin Glargine,Hum.rec.anlog 37 units SUB-Q HS 09/26/18 09/26/18 Unknown History [Lantus Solostar] Spironolactone [Aldactone] 50 mg PO BID 09/26/18 09/26/18 Unknown History Active Medications: Generic Name Dose Route Start Last Admin Trade Name Freq PRN Reason Stop Dose Admin Acetaminophen 650 mg 09/26/18 20:21 Tylenol PO Q4H PRN Pain MILD(1-3)/Fever >100.5/CARR Arformoterol Tartrate 15 mcg 09/27/18 08:00 09/29/18 08:04 Brovana Nebu IH 15 mcg Q12HRT KJ Administration Aspirin 81 mg 09/26/18 21:00 09/28/18 09:28 Baby Aspirin PO 81 mg QDAY KJ Administration Atorvastatin Calcium 40 mg 09/26/18 22:00 09/28/18 22:53 Lipitor PO 40 mg QHS KJ Administration Budesonide 0.5 mg 09/28/18 17:14 09/29/18 08:04 Pulmicort IH 0.5 mg Q12HRT KJ Administration Calcitriol 0.5 mcg 09/26/18 21:00 09/28/18 09:28 Rocaltrol PO 0.5 mcg QDAY KJ Administration Famotidine 20 mg 09/26/18 22:00 09/28/18 22:56 Pepcid PO 20 mg QHS [facility] Administration Heparin Sodium (Porcine) 5,000 unit 09/27/18 10:00 09/28/18 22:54 Heparin SUB-Q 5,000 unit Q12HR KJ Administration Hydralazine HCl 50 mg 09/26/18 22:00 09/29/18 06:10 Apresoline PO 50 mg Q8HR KJ Administration Hydromorphone HCl 0.5 mg 09/26/18 20:21 Dilaudid IV Q3H PRN Pain , Severe (7-10) Sodium Chloride 100 mls @ 999 mls/hr 09/28/18 07:15 Nacl 0.9% IV MORRIS PRN Hypotension Insulin Glargine 20 units 09/28/18 22:00 09/28/18 22:51 Lantus SUB-Q 20 units QHS KJ Administration Insulin Human Lispro 0 unit 09/27/18 07:30 09/29/18 08:37 Humalog SUB-Q Not Given ACHS [facility] Protocol Metoclopramide HCl 5 mg 09/26/18 20:39 Reglan IV Q6H PRN Nausea And Vomiting Metoprolol Succinate 200 mg 09/26/18 21:00 09/28/18 09:28 Toprol Xl PO 200 mg QDAY KJ Administration Nifedipine 60 mg 09/26/18 21:00 09/28/18 09:28 Procardia Xl PO 60 mg DAILY KJ Administration Ondansetron HCl 4 mg 09/26/18 20:21 09/27/18 09:45 Zofran IV 4 mg Q8H PRN Administration Nausea And Vomiting Oxycodone/Acetaminophen 1 tab 09/26/18 20:21 09/28/18 22:56 Percocet 5/325 PO 1 tab Q6H PRN Administration Pain, Moderate (4-6) Pantoprazole Sodium 40 mg 09/27/18 10:00 09/28/18 09:28 Protonix PO 40 mg DAILY KJ Administration Sodium Chloride 10 ml 09/26/18 22:00 09/28/18 22:57 Sodium Chloride Flush Syringe 10 Ml IV 10 ml BID KJ Administration Sodium Chloride 10 ml 09/26/18 20:21 Sodium Chloride Flush Syringe 10 Ml IV PRN PRN LINE FLUSH
[2018-09-29] MEDS: TOPROL XL PO SCH (09:40)
[2018-09-29] MEDS: PROTONIX PO SCH (09:40)
[2018-09-29] MEDS: PROCARDIA XL PO SCH (09:40)
[2018-09-29] MEDS: BABY ASPIRIN PO SCH (09:40)
[2018-09-29] MEDS: SODIUM CHLORIDE FLUSH SYRINGE 10 ML IV SCH ×2 (09:41→22:08)
[2018-09-29] MEDS: ROCALTROL PO SCH (09:41)
[2018-09-29] MEDS: HEPARIN SUB-Q SCH ×2 (09:42→22:06)
[2018-09-29] MEDS: PERCOCET 5/325 PO PRN ×2 (09:49→19:52)
--- NOTE | 2018-09-29 12:04 | XRay Report ---
ROUTINE CHEST, TWO VIEWS: HISTORY: Rule out TB for HD set up. The trachea, heart, mediastinal contour, lung tesfaye and bony thorax are unremarkable. Right dialysis catheter terminates in the superior right atrium. IMPRESSION: Unremarkable chest x-ray.
[2018-09-29] MEDS ORDERED: NACL 0.9 (PRIMING MACHINE ONLY DIALYSIS) MC ONE (17:07)
--- NOTE | 2018-09-29 17:08 | Progress Note ---
Assessment and Plan - Patient Problems (1) ESRD on hemodialysis Current Visit: Yes Status: Acute Plan to address problem: Patient currently on hemodialysis doing well. Awaiting outpatient care to secure hemodialysis. (2) Hyperkalemia Current Visit: Yes Status: Acute Plan to address problem: Resolving with hemodialysis. Patient received hemodialysis today. (3) Malignant hypertension Current Visit: Yes Status: Acute Plan to address problem: Her present much better control. Metoprolol and Procardia. (4) IDDM (insulin dependent diabetes mellitus) Current Visit: Yes Status: Chronic Plan to address problem: Stable with concurrent Lantus and sliding scale insulin. History Interval history: Concerns. Patient actively at hemodialysis. No change in medical management. Tolerating well. Hospitalist Physical - Constitutional Vitals: Temp Pulse Resp BP Pulse Ox 98.4 F 73 18 170/64 97 09/29/18 04:54 09/29/18 10:00 09/29/18 08:18 09/29/18 09:40 09/29/18 10:00 General appearance: Present: no acute distress, obese - EENT Eyes: Present: PERRL, EOM intact. Absent: conjunctival injection ENT: hearing intact, clear oral mucosa, dentition normal, no oropharyngeal erythema - Neck Neck: Present: supple, normal ROM. Absent: enlarged thyroid, cervical LAD - Respiratory Respiratory effort: normal Respiratory: bilateral: CTA - Extremities Extremities: no ischemia, pulses intact, pulses symmetrical, No edema, normal temperature, normal color - Abdominal General gastrointestinal: soft, tender, normal bowel sounds - Integumentary Integumentary: Present: clear, warm, dry - Psychiatric Psychiatric: appropriate mood/affect, intact judgment & insight - Neurologic Neurologic: CNII-XII intact Results - Labs CBC & Chem 7: 09/28/18 05:27 09/29/18 05:31 Labs: Laboratory Last Values WBC 8.0 K/mm3 (4.5-11.0) 09/28/18 05:27 RBC 3.64 M/mm3 (3.65-5.03) L 09/28/18 05:27 Hgb 11.2 gm/dl (10.1-14.3) 09/28/18 05:27 Hct 33.6 % (30.3-42.9) 09/28/18 05:27 MCV 92 fl (79-97) 09/28/18 05:27 MCH 31 pg (28-32) 09/28/18 05:27 MCHC 34 % (30-34) 09/28/18 05:27 RDW 13.4 % (13.2-15.2) 09/28/18 05:27 Plt Count 172 K/mm3 (140-440) 09/28/18 05:27 Lymph % (Auto) 30.0 % (13.4-35.0) 09/28/18 05:27 [place] % (Auto) 7.8 % (0.0-7.3) H 09/28/18 05:27 Eos % (Auto) 3.0 % (0.0-4.3) 09/28/18 05:27 Baso % (Auto) 0.7 % (0.0-1.8) 09/28/18 05:27 Lymph # 2.4 K/mm3 (1.2-5.4) 09/28/18 05:27 [place] # 0.6 K/mm3 (0.0-0.8) 09/28/18 05:27 Eos # 0.2 K/mm3 (0.0-0.4) 09/28/18 05:27 Baso # 0.1 K/mm3 (0.0-0.1) 09/28/18 05:27 Seg Neutrophils % 58.5 % (40.0-70.0) 09/28/18 05:27 Seg Neutrophils # 4.7 K/mm3 (1.8-7.7) 09/28/18 05:27 PT 13.3 Sec. (12.2-14.9) 09/26/18 08:35 INR 0.95 (0.87-1.13) 09/26/18 08:35 APTT 26.8 Sec. (24.2-36.6) 09/26/18 08:35 Thrombin Time 17.8 Sec. (15.1-19.6) 09/26/18 08:35 Sodium 135 mmol/L (137-145) L 09/29/18 05:31 Potassium 4.3 mmol/L (3.6-5.0) 09/29/18 05:31 Chloride 97.6 mmol/L (98-107) L 09/29/18 05:31 Carbon Dioxide 23 mmol/L (22-30) 09/29/18 05:31 Anion Gap 19 mmol/L 09/29/18 05:31 BUN 31 mg/dL (7-17) H 09/29/18 05:31 Creatinine 5.5 mg/dL (0.7-1.2) H 09/29/18 05:31 Estimated GFR 10 ml/min 09/29/18 05:31 BUN/Creatinine Ratio 6 % 09/29/18 05:31 Glucose 146 mg/dL (65-100) H 09/29/18 05:31 POC Glucose 143 (70-105) H 09/29/18 07:56 Hemoglobin A1c 7.9 % (4-6) H 09/26/18 20:49 Calcium 8.7 mg/dL (8.4-10.2) 09/29/18 05:31 Magnesium 1.60 mg/dL (1.7-2.3) L 09/29/18 05:31 Total Bilirubin 0.30 mg/dL (0.1-1.2) 09/27/18 05:36 AST 12 units/L (5-40) 09/27/18 05:36 ALT 9 units/L (7-56) 09/27/18 05:36 Alkaline Phosphatase 95 units/L (35-129) 09/27/18 05:36 Troponin T < 0.010 ng/mL (0.00-0.029) 09/26/18 08:35 Total Protein 7.1 g/dL (6.3-8.2) 09/27/18 05:36 Albumin 3.6 g/dL (3.9-5) L 09/27/18 05:36 Albumin/Globulin Ratio 1.0 % 09/27/18 05:36 Hepatitis A IgM Ab Non-reactive (NonReactive) 09/26/18 13:59 Hep Bs Antigen Non-reactive (Negative) 09/26/18 13:59 Hep B Core IgM Ab Non-reactive (NonReactive) 09/26/18 13:59 Hepatitis C Antibody Non-reactive (NonReactive) 09/26/18 13:59 Active Medications - Current Medications Current Medications: Generic Name Dose Route Start Last Admin Trade Name Freq PRN Reason Stop Dose Admin Acetaminophen 650 mg 09/26/18 20:21 Tylenol PO Q4H PRN Pain MILD(1-3)/Fever >100.5/CARR Arformoterol Tartrate 15 mcg 09/27/18 08:00 09/29/18 08:04 Brovana Nebu IH 15 mcg Q12HRT KJ Administration Aspirin 81 mg 09/26/18 21:00 09/29/18 09:40 Baby Aspirin PO 81 mg QDAY KJ Administration Atorvastatin Calcium 40 mg 09/26/18 22:00 09/28/18 22:53 Lipitor PO 40 mg QHS KJ Administration Budesonide 0.5 mg 09/28/18 17:14 09/29/18 08:04 Pulmicort IH 0.5 mg Q12HRT KJ Administration Calcitriol 0.5 mcg 09/26/18 21:00 09/29/18 09:41 Rocaltrol PO 0.5 mcg QDAY KJ Administration Famotidine 20 mg 09/26/18 22:00 09/28/18 22:56 Pepcid PO 20 mg QHS KJ Administration Heparin Sodium (Porcine) 5,000 unit 09/27/18 10:00 09/29/18 09:42 Heparin SUB-Q 5,000 unit Q12HR KJ Administration Hydralazine HCl 50 mg 09/26/18 22:00 09/29/18 15:13 Apresoline PO Not Given Q8HR [facility] Hydromorphone HCl 0.5 mg 09/26/18 20:21 Dilaudid IV Q3H PRN Pain , Severe (7-10) Sodium Chloride 100 mls @ 999 mls/hr 09/28/18 07:15 Nacl 0.9% IV MORRIS PRN Hypotension Insulin Glargine 20 units 09/28/18 22:00 09/28/18 22:51 Lantus SUB-Q 20 units QHS KJ Administration Insulin Human Lispro 0 unit 09/27/18 07:30 09/29/18 08:37 Humalog SUB-Q Not Given ACHS [facility] Protocol Metoclopramide HCl 5 mg 09/26/18 20:39 Reglan IV Q6H PRN Nausea And Vomiting Metoprolol Succinate 200 mg 09/26/18 21:00 09/29/18 09:40 Toprol Xl PO 200 mg QDAY KJ Administration Nifedipine 60 mg 09/26/18 21:00 09/29/18 09:40 Procardia Xl PO 60 mg DAILY KJ Administration Ondansetron HCl 4 mg 09/26/18 20:21 09/27/18 09:45 Zofran IV 4 mg Q8H PRN Administration Nausea And Vomiting Oxycodone/Acetaminophen 1 tab 09/26/18 20:21 09/29/18 09:49 Percocet 5/325 PO 1 tab Q6H PRN Administration Pain, Moderate (4-6) Pantoprazole Sodium 40 mg 09/27/18 10:00 09/29/18 09:40 Protonix PO 40 mg DAILY KJ Administration Sodium Chloride 10 ml 09/26/18 22:00 09/29/18 09:41 Sodium Chloride Flush Syringe 10 Ml IV 10 ml BID KJ Administration Sodium Chloride 10 ml 09/26/18 20:21 Sodium Chloride Flush Syringe 10 Ml IV PRN PRN LINE FLUSH Nutrition/Malnutrition Assess - Dietary Evaluation Nutrition/Malnutrition Findings: Nutrition Notes Start: 09/27/18 15:27 Freq: Status: Active Protocol: Document 09/27/18 15:27 RM (Rec: 09/27/18 15:35 RM [id number]) Nutrition Notes Need for Assessment generated from: MD Order,Education Initial or Follow up Assessment Current Diagnosis Diabetes,Hypertension Other Pertinent Diagnosis ESRD on HD Labs/Tests A1c 7.9 Subjective/Other Information Consulted for diet education. Pt stated she had not been previously educated. Reviewed DM and Renal diet education. Gave handouts. #1 Nutrition Diagnosis Food and nutrition-related knowledge deficit Etiology lack of prior education As Evidenced by Signs and Symptoms pt desire for education Nutrition Intervention Teaching Recipient Patient Learning Readiness Good Teaching Methods Discussion,Handout Response to Teaching Verbalize understanding Education Handouts Provided Carbohydrate Counting for People with Diabetes, Renal diet basics Goal #1 Adhere to diet Revisit per MD consult or patient Sign Off request:
[2018-09-29] MEDS: PEPCID PO SCH (22:06)
[2018-09-29] MEDS: LANTUS SUB-Q SCH (22:07)
[2018-09-30] MEDS: APRESOLINE PO SCH ×3 (06:00→21:03)
[2018-09-30] MEDS: PULMICORT IH SCH ×2 (07:50→19:08)
[2018-09-30] MEDS: BROVANA NEBU IH SCH ×2 (07:51→19:08)
--- NOTE | 2018-09-30 08:26 | Progress Note ---
Assessment and Plan - Patient Problems (1) End-stage renal disease (ESRD) Current Visit: Yes Status: Acute Plan to address problem: Chronic kidney disease stage V progressed to end-stage renal disease. Arrange for outpatient dialysis at [facility] dialysis. (2) Hyperkalemia Current Visit: Yes Status: Acute Plan to address problem: Resolved with dialysis. (3) Hypertensive chronic kidney disease with stage 5 chronic kidney disease or e nd stage renal disease Current Visit: Yes Status: Acute Plan to address problem: Unable to start patient on RYLAND inhibitor because of history of allergy. Follow up blood pressure on current medications. (4) Hypomagnesemia Current Visit: Yes Status: Acute Plan to address problem: Supplement magnesium and follow up levels (5) Metabolic acidosis Current Visit: Yes Status: Acute Plan to address problem: Resolved with dialysis (6) Type 2 diabetes mellitus with diabetic chronic kidney disease Current Visit: Yes Status: Acute Plan to address problem: Blood sugar management by primary attending Subjective Date of service: 09/30/18 Principal diagnosis: ESRD Interval history: Patient seen lying in bed. No new complaints. She is feeling better. She slept well overnight. No chest pain or shortness of breath. No nausea or vomiting Objective - Exam Narrative Exam: Obese middle-aged -[place] female lying in bed in no acute distress HEENT: NCAT, pink oral mucous membrane Neck: Supple, no venous distention CVS: S1S2 RRR with no murmur, rub or gallop Chest: Clear to auscultation Abdomen: Protuberant, soft, nontender, no organomegaly, bowel sounds are present Extremities: No edema Neuro: Awake, alert no focal deficits - Vital Signs Vital signs: Vital Signs - 12hr 09/29/18 09/29/18 09/30/18 22:05 23:47 05:46 Temperature 97.7 F 98.0 F Pulse Rate 74 73 76 Pulse Rate [ Anterior Bilateral Throughout] Respiratory 18 20 Rate Respiratory Rate [Anterior Bilateral Throughout] Blood Pressure 135/96 150/56 168/99 O2 Sat by Pulse 96 97 Oximetry 09/30/18 09/30/18 09/30/18 06:00 07:51 08:02 Temperature Pulse Rate 76 Pulse Rate [ 69 69 Anterior Bilateral Throughout] Respiratory Rate Respiratory 19 18 Rate [Anterior Bilateral Throughout] Blood Pressure 168/99 O2 Sat by Pulse Oximetry - Lab 09/28/18 05:27 09/29/18 05:31 Most recent lab results Calcium 8.7 mg/dL (8.4-10.2) 09/29/18 05:31 Magnesium 1.60 mg/dL (1.7-2.3) L 09/29/18 05:31 Medications & Allergies - Medications Allergies/Adverse Reactions: Allergies lisinopril Allergy (Verified 09/26/18 15:30) Swelling Sulfa (Sulfonamide Antibiotics) Allergy (Verified 09/26/18 15:30) Swelling Home Medications: Home Medications Medication Instructions Recorded Confirmed Last Taken Type Lispro Insulin [Humalog] 15 units SUB-Q TID 07/16/18 09/26/18 09/25/18 History Metoprolol Succinate [Toprol Xl] 200 mg PO DAILY 07/16/18 09/26/18 09/26/18 History NIFEdipine [Nifedipine ER] 60 mg PO DAILY 07/16/18 09/26/18 09/26/18 History Atorvastatin Calcium 40 mg PO QDAY 07/17/18 09/26/18 09/26/18 History Esomeprazole Magnesium [Nexium] 40 mg PO QAM 07/17/18 09/26/18 09/26/18 History Ranitidine HCl [Acid Employee Counselor] 150 mg PO QHS 07/17/18 09/26/18 09/25/18 History Aspirin [Aspirin BABY CHEW TAB] 81 mg PO QDAY #30 tab.chew 07/19/18 09/26/18 09/26/18 Rx hydrALAZINE [Apresoline TAB] 50 mg PO Q8HR #90 tablet 07/19/18 09/26/18 09/26/18 Rx Budesonide/Formoterol Fumarate 2 puff IH QAM 09/26/18 09/26/18 Unknown History [Symbicort 160-4.5 Mcg Inhaler] Calcitriol [Rocaltrol] 0.5 mcg PO QDAY 09/26/18 09/26/18 09/26/18 History Insulin Glargine,Hum.rec.anlog 37 units SUB-Q HS 09/26/18 09/26/18 Unknown History [Lantus Solostar] Spironolactone [Aldactone] 50 mg PO BID 09/26/18 09/26/18 Unknown History Active Medications: Generic Name Dose Route Start Last Admin Trade Name Freq PRN Reason Stop Dose Admin Acetaminophen 650 mg 09/26/18 20:21 Tylenol PO Q4H PRN Pain MILD(1-3)/Fever >100.5/CARR Arformoterol Tartrate 15 mcg 09/27/18 08:00 09/30/18 07:51 Bromaynor Nebu IH 15 mcg Q12HRT KJ Administration Aspirin 81 mg 09/26/18 21:00 09/29/18 09:40 Baby Aspirin PO 81 mg QDAY KJ Administration Atorvastatin Calcium 40 mg 09/26/18 22:00 09/29/18 22:05 Lipitor PO 40 mg QHS KJ Administration Budesonide 0.5 mg 09/28/18 17:14 09/30/18 07:50 Pulmicort IH 0.5 mg Q12HRT KJ Administration Calcitriol 0.5 mcg 09/26/18 21:00 09/29/18 09:41 Rocaltrol PO 0.5 mcg QDAY KJ Administration Famotidine 20 mg 09/26/18 22:00 09/29/18 22:06 Pepcid PO 20 mg QHS KJ Administration Heparin Sodium (Porcine) 5,000 unit 09/27/18 10:00 09/29/18 22:06 Heparin SUB-Q 5,000 unit Q12HR KJ Administration Hydralazine HCl 50 mg 09/26/18 22:00 09/30/18 06:00 Apresoline PO 50 mg Q8HR KJ Administration Hydromorphone HCl 0.5 mg 09/26/18 20:21 Dilaudid IV Q3H PRN Pain , Severe (7-10) Sodium Chloride 100 mls @ 999 mls/hr 09/28/18 07:15 Nacl 0.9% IV MORRIS PRN Hypotension Insulin Glargine 20 units 09/28/18 22:00 09/29/18 22:07 Lantus SUB-Q 20 units QHS KJ Administration Insulin Human Lispro 0 unit 09/27/18 07:30 09/29/18 22:07 Humalog SUB-Q 4 unit ACHS KJ Administration Protocol Metoclopramide HCl 5 mg 09/26/18 20:39 09/30/18 06:00 Reglan IV 5 mg Q6H PRN Administration Nausea And Vomiting Metoprolol Succinate 200 mg 09/26/18 21:00 09/29/18 09:40 Toprol Xl PO 200 mg QDAY KJ Administration Nifedipine 60 mg 09/26/18 21:00 09/29/18 09:40 Procardia Xl PO 60 mg DAILY KJ Administration Ondansetron HCl 4 mg 09/26/18 20:21 09/27/18 09:45 Zofran IV 4 mg Q8H PRN Administration Nausea And Vomiting Oxycodone/Acetaminophen 1 tab 09/26/18 20:21 09/29/18 19:52 Percocet 5/325 PO 1 tab Q6H PRN Administration Pain, Moderate (4-6) Pantoprazole Sodium 40 mg 09/27/18 10:00 09/29/18 09:40 Protonix PO 40 mg DAILY KJ Administration Sodium Chloride 10 ml 09/26/18 22:00 09/29/18 22:08 Sodium Chloride Flush Syringe 10 Ml IV 10 ml BID KJ Administration Sodium Chloride 10 ml 09/26/18 20:21 Sodium Chloride Flush Syringe 10 Ml IV PRN PRN LINE FLUSH
[2018-09-30] MEDS: HumaLOG SUB-Q SCH ×4 (09:06→21:10)
[2018-09-30] MEDS: TOPROL XL PO SCH (09:43)
[2018-09-30] MEDS: PROCARDIA XL PO SCH (09:44)
[2018-09-30] MEDS: BABY ASPIRIN PO SCH (09:44)
[2018-09-30] MEDS: PROTONIX PO SCH (09:44)
[2018-09-30] MEDS: HEPARIN SUB-Q SCH ×2 (09:45→21:03)
[2018-09-30] MEDS: ROCALTROL PO SCH (09:45)
[2018-09-30] MEDS: SODIUM CHLORIDE FLUSH SYRINGE 10 ML IV SCH (09:46)
[2018-09-30] MEDS: PERCOCET 5/325 PO PRN ×2 (10:57→21:02)
--- NOTE | 2018-09-30 11:24 | Progress Note ---
Assessment and Plan Assessment and plan: New ESRD on HD -s/p vas cath placement. -awaiting out-pt HD chair -mri manager following Hyperkalemia -resolved Hypertension -BP improved on current antihypertensives, adjust as needed Insulin-dependent T2DM (type 2 diabetes mellitus) -Insulin regimen adjusted due to hypoglycemia, continue adjustments as needed. Continue Lantus and sliding scale insulin Renal osteodystrophy, chronic -cont calcitriol HLD -Continue statin Hypomagnesemia -We'll recheck mg level in a.m. DVT prophylaxis -On heparin Disposition: Patient is awaiting outpatient HD chair History Interval history: No new issues overnight Hospitalist Physical - Constitutional Vitals: Temp Pulse Resp BP Pulse Ox 98.0 F 69 18 168/99 97 09/30/18 05:46 09/30/18 09:43 09/30/18 08:02 09/30/18 09:43 09/30/18 05:46 General appearance: Present: no acute distress, obese - EENT Eyes: Present: PERRL, EOM intact ENT: hearing intact, clear oral mucosa, dentition normal - Neck Neck: Present: supple, normal ROM - Respiratory Respiratory effort: normal Respiratory: bilateral: CTA - Cardiovascular Rhythm: regular Heart Sounds: Present: S1 & S2. Absent: gallop, rub - Extremities Extremities: no ischemia, No edema, Full ROM - Abdominal General gastrointestinal: soft, non-tender, non-distended, normal bowel sounds - Integumentary Integumentary: Present: clear, warm, dry - Neurologic Neurologic: CNII-XII intact, moves all extremities Results - Labs CBC & Chem 7: 09/28/18 05:27 09/29/18 05:31 Labs: Laboratory Last Values WBC 8.0 K/mm3 (4.5-11.0) 09/28/18 05:27 RBC 3.64 M/mm3 (3.65-5.03) L 09/28/18 05:27 Hgb 11.2 gm/dl (10.1-14.3) 09/28/18 05:27 Hct 33.6 % (30.3-42.9) 09/28/18 05:27 MCV 92 fl (79-97) 09/28/18 05:27 MCH 31 pg (28-32) 09/28/18 05:27 MCHC 34 % (30-34) 09/28/18 05:27 RDW 13.4 % (13.2-15.2) 09/28/18 05:27 Plt Count 172 K/mm3 (140-440) 09/28/18 05:27 Lymph % (Auto) 30.0 % (13.4-35.0) 09/28/18 05:27 [place] % (Auto) 7.8 % (0.0-7.3) H 09/28/18 05:27 Eos % (Auto) 3.0 % (0.0-4.3) 09/28/18 05:27 Baso % (Auto) 0.7 % (0.0-1.8) 09/28/18 05:27 Lymph # 2.4 K/mm3 (1.2-5.4) 09/28/18 05:27 [place] # 0.6 K/mm3 (0.0-0.8) 09/28/18 05:27 Eos # 0.2 K/mm3 (0.0-0.4) 09/28/18 05:27 Baso # 0.1 K/mm3 (0.0-0.1) 09/28/18 05:27 Seg Neutrophils % 58.5 % (40.0-70.0) 09/28/18 05:27 Seg Neutrophils # 4.7 K/mm3 (1.8-7.7) 09/28/18 05:27 PT 13.3 Sec. (12.2-14.9) 09/26/18 08:35 INR 0.95 (0.87-1.13) 09/26/18 08:35 APTT 26.8 Sec. (24.2-36.6) 09/26/18 08:35 Thrombin Time 17.8 Sec. (15.1-19.6) 09/26/18 08:35 Sodium 135 mmol/L (137-145) L 09/29/18 05:31 Potassium 4.3 mmol/L (3.6-5.0) 09/29/18 05:31 Chloride 97.6 mmol/L (98-107) L 09/29/18 05:31 Carbon Dioxide 23 mmol/L (22-30) 09/29/18 05:31 Anion Gap 19 mmol/L 09/29/18 05:31 BUN 31 mg/dL (7-17) H 09/29/18 05:31 Creatinine 5.5 mg/dL (0.7-1.2) H 09/29/18 05:31 Estimated GFR 10 ml/min 09/29/18 05:31 BUN/Creatinine Ratio 6 % 09/29/18 05:31 Glucose 146 mg/dL (65-100) H 09/29/18 05:31 POC Glucose 149 (70-105) H 09/30/18 09:10 Hemoglobin A1c 7.9 % (4-6) H 09/26/18 20:49 Calcium 8.7 mg/dL (8.4-10.2) 09/29/18 05:31 Magnesium 1.60 mg/dL (1.7-2.3) L 09/29/18 05:31 Total Bilirubin 0.30 mg/dL (0.1-1.2) 09/27/18 05:36 AST 12 units/L (5-40) 09/27/18 05:36 ALT 9 units/L (7-56) 09/27/18 05:36 Alkaline Phosphatase 95 units/L (35-129) 09/27/18 05:36 Troponin T < 0.010 ng/mL (0.00-0.029) 09/26/18 08:35 Total Protein 7.1 g/dL (6.3-8.2) 09/27/18 05:36 Albumin 3.6 g/dL (3.9-5) L 09/27/18 05:36 Albumin/Globulin Ratio 1.0 % 09/27/18 05:36 Hepatitis A IgM Ab Non-reactive (NonReactive) 09/26/18 13:59 Hep Bs Antigen Non-reactive (Negative) 09/26/18 13:59 Hep B Core IgM Ab Non-reactive (NonReactive) 09/26/18 13:59 Hepatitis C Antibody Non-reactive (NonReactive) 09/26/18 13:59 Active Medications - Current Medications Current Medications: Generic Name Dose Route Start Last Admin Trade Name Freq PRN Reason Stop Dose Admin Acetaminophen 650 mg 09/26/18 20:21 Tylenol PO Q4H PRN Pain MILD(1-3)/Fever >100.5/CARR Arformoterol Tartrate 15 mcg 09/27/18 08:00 09/30/18 07:51 Brovana Nebu IH 15 mcg Q12HRT KJ Administration Aspirin 81 mg 09/26/18 21:00 09/30/18 09:44 Baby Aspirin PO 81 mg QDAY KJ Administration Atorvastatin Calcium 40 mg 09/26/18 22:00 09/29/18 22:05 Lipitor PO 40 mg QHS KJ Administration Budesonide 0.5 mg 09/28/18 17:14 09/30/18 07:50 Pulmicort IH 0.5 mg Q12HRT KJ Administration Calcitriol 0.5 mcg 09/26/18 21:00 09/30/18 09:45 Rocaltrol PO 0.5 mcg QDAY KJ Administration Famotidine 20 mg 09/26/18 22:00 09/29/18 22:06 Pepcid PO 20 mg QHS KJ Administration Heparin Sodium (Porcine) 5,000 unit 09/27/18 10:00 09/30/18 09:45 Heparin SUB-Q 5,000 unit Q12HR KJ Administration Hydralazine HCl 50 mg 09/26/18 22:00 09/30/18 06:00 Apresoline PO 50 mg Q8HR KJ Administration Hydromorphone HCl 0.5 mg 09/26/18 20:21 Dilaudid IV Q3H PRN Pain , Severe (7-10) Sodium Chloride 100 mls @ 999 mls/hr 09/28/18 07:15 Nacl 0.9% IV MORRIS PRN Hypotension Insulin Glargine 20 units 09/28/18 22:00 09/29/18 22:07 Lantus SUB-Q 20 units QHS KJ Administration Insulin Human Lispro 0 unit 09/27/18 07:30 09/30/18 09:06 Humalog SUB-Q Not Given ACHS [facility] Protocol Metoclopramide HCl 5 mg 09/26/18 20:39 09/30/18 06:00 Reglan IV 5 mg Q6H PRN Administration Nausea And Vomiting Metoprolol Succinate 200 mg 09/26/18 21:00 09/30/18 09:43 Toprol Xl PO 200 mg QDAY KJ Administration Nifedipine 60 mg 09/26/18 21:00 09/30/18 09:44 Procardia Xl PO 60 mg DAILY KJ Administration Ondansetron HCl 4 mg 09/26/18 20:21 09/27/18 09:45 Zofran IV 4 mg Q8H PRN Administration Nausea And Vomiting Oxycodone/Acetaminophen 1 tab 09/26/18 20:21 09/30/18 10:57 Percocet 5/325 PO 1 tab Q6H PRN Administration Pain, Moderate (4-6) Pantoprazole Sodium 40 mg 09/27/18 10:00 09/30/18 09:44 Protonix PO 40 mg DAILY KJ Administration Sodium Chloride 10 ml 09/26/18 22:00 09/30/18 09:46 Sodium Chloride Flush Syringe 10 Ml IV 10 ml BID KJ Administration Sodium Chloride 10 ml 09/26/18 20:21 Sodium Chloride Flush Syringe 10 Ml IV PRN PRN LINE FLUSH Nutrition/Malnutrition Assess - Dietary Evaluation Nutrition/Malnutrition Findings: Nutrition Notes Start: 09/27/18 15:27 Freq: Status: Active Protocol: Document 09/27/18 15:27 RM (Rec: 09/27/18 15:35 RM [id number]) Nutrition Notes Need for Assessment generated from: MD Order,Education Initial or Follow up Assessment Current Diagnosis Diabetes,Hypertension Other Pertinent Diagnosis ESRD on HD Labs/Tests A1c 7.9 Subjective/Other Information Consulted for diet education. Pt stated she had not been previously educated. Reviewed DM and Renal diet education. Gave handouts. #1 Nutrition Diagnosis Food and nutrition-related knowledge deficit Etiology lack of prior education As Evidenced by Signs and Symptoms pt desire for education Nutrition Intervention Teaching Recipient Patient Learning Readiness Good Teaching Methods Discussion,Handout Response to Teaching Verbalize understanding Education Handouts Provided Carbohydrate Counting for People with Diabetes, Renal diet basics Goal #1 Adhere to diet Revisit per MD consult or patient Sign Off request:
[2018-09-30] MEDS ORDERED: PROCARDIA XL PO SCH (13:25)
[2018-09-30] MEDS ORDERED: APRESOLINE PO ONE (14:30)
[2018-09-30] MEDS: PEPCID PO SCH (21:03)
[2018-09-30] MEDS: LANTUS SUB-Q SCH (21:04)
[2018-10-01] MEDS: PERCOCET 5/325 PO PRN ×2 (05:50→12:20)
[2018-10-01] MEDS: APRESOLINE PO SCH (05:50)
[2018-10-01] MEDS: SODIUM CHLORIDE FLUSH SYRINGE 10 ML IV SCH (05:52)
[2018-10-01 06:51] LABS: Basophils % (Auto) 0.6 % (0.0-1.8); Eosinophils # (Auto) 0.3 K/mm3 (0.0-0.4); Hematocrit 33.5 % (30.3-42.9); Hemoglobin 11.2 gm/dl (10.1-14.3); Lymphocytes # (Auto) 2.7 K/mm3 (1.2-5.4); Lymphocytes % (Auto) 33.7 % (13.4-35.0); Mean Corpuscular HGB Conc 34 % (30-34); Mean Corpuscular Volume 92 fl (79-97); Monocytes # (Auto) 0.7 K/mm3 (0.0-0.8); Platelet Count 177 K/mm3 (140-440); Red Blood Count 3.65 M/mm3 (3.65-5.03); Red Cell Distribution Width 13.3 % (13.2-15.2)
[2018-10-01 07:28] LABS: Calcium 8.7 mg/dL (8.4-10.2)
--- NOTE | 2018-10-01 08:28 | Discharge Summary ---
Providers - Providers Date of Admission: 09/26/18 11:07 Date of discharge: 10/01/18 Attending physician: KRISTI EMERSON 09/26/18 09:58 Consult to Physician [CONS] Urgent Comment: Consulting Provider: MIRIAM MEJIA Physician Instructions: Reason For Exam: renal dz, hyperkalemia, hypomagnesemia 09/26/18 10:03 Consult to Physician [CONS] Urgent Comment: Consulting Provider: ROBERT FOUNTAIN Physician Instructions: Reason For Exam: worsening renal function, potential dialysis 09/26/18 20:23 Consult to Dietitian/Nutrition [CONS] Routine Physician Instructions: Reason For Exam: Reason for Consult: Diet education 09/29/18 08:04 Consult to Case Management [CONS] Routine Services Needed at Discharge: Other Notified:: cm Additional Physician Instructions: Arrange out Pt dialysis at [facility] Primary care physician: JOSEPHINE VICENTE Hospitalization Reason for admission: end stage renal disease, hyperkalemia, metabolic acidosis Condition: Stable Hospital course: This is a 53 yo AAF with past medical history of Hypertension, type 2 DM, h/o renal carcinoma with R nephrectomy in 2013, CKD stage 5, secondary hyperparathyroidism, who is followed with Dr Rosenberg of Nephrology presented to [facility] ER with complaints of periorbital paresthesias and intermittent paresthesias bilateral hands. Intial labs showed elevated BUN/Cr at 67/4.2mg/dl, hyperkalemia iwth K > 5.7 along with serum bicarb of 15. Compared to office labs (BUN/Cr at 71/5.36mg/dl on 08/29/18), the renal function was worsening, and renal consult was requested for management of advanced CKD and evaluation of renal replacement therapy. Pt was already being prepared for [facility], referred to Transplant clinic, and also referred to vascular surgery for access evaluation, however pt was not able to make the appointment. Pt reported intermittent nausea, however no vomiting. Pt denied recent NSAIDs use or IV contrast exposure. The patient underwent placement of right internal jugular permacath with vascular surgery. The patient had hemodialysis initiated on 09/26/18. Case management was consulted to assist in outpatient hemodialysis arrangements. Arrangements were made for [facility] dialysis., Cases doing hospital stay included accelerated hypertension. Adjustments were made in the medications and blood pressure stabilized. Patient is felt to have received maximal hospital benefit and will discharge home. Dedicated discharge time 35 minutes. Disposition: DC-01 TO HOME OR SELFCARE Time spent for discharge: 35 - Discharge Diagnoses (1) ESRD on hemodialysis Status: Acute (2) Hyperkalemia Status: Acute (3) Malignant hypertension Status: Acute (4) Metabolic acidosis Status: Acute (5) Type 2 diabetes mellitus with diabetic chronic kidney disease Status: Acute Core Measure Documentation - Palliative Care Palliative Care/ Comfort Measures: Not Applicable - Core Measures Any of the following diagnoses?: none Exam - Constitutional Vitals: Temp Pulse Resp BP Pulse Ox 98.5 F 89 16 166/74 94 10/01/18 05:25 10/01/18 05:25 10/01/18 05:25 10/01/18 05:25 10/01/18 05:25 General appearance: Present: no acute distress, well-nourished - EENT Eyes: Present: PERRL ENT: hearing intact, clear oral mucosa - Neck Neck: Present: supple, normal ROM - Respiratory Respiratory effort: normal Respiratory: bilateral: CTA - Cardiovascular Heart Sounds: Present: S1 & S2. Absent: rub, click - Extremities Extremities: pulses symmetrical, No edema Peripheral Pulses: within normal limits - Abdominal General gastrointestinal: Present: soft, non-tender, non-distended, normal bowel sounds Female genitourinary: Present: normal - Integumentary Integumentary: Present: clear, warm, dry - Musculoskeletal Musculoskeletal: gait normal, strength equal bilaterally - Psychiatric Psychiatric: appropriate mood/affect, intact judgment & insight - Neurologic Neurologic: CNII-XII intact, moves all extremities Plan Activity: no restrictions Weight Bearing Status: Full Weight Bearing Diet: diabetic, renal Follow up with: OCTAVIA ROSENBERG DO [Staff Physician] - 3-5 Days Prescriptions: hydrALAZINE [Apresoline TAB] 75 mg PO Q8HR #90 tablet Aspirin [Aspirin BABY CHEW TAB] 81 mg PO QDAY #30 tab.chew Atorvastatin Calcium 40 mg PO QDAY #30 tablet Metoprolol Xl [Metoprolol SUCCINATE ER TAB] 200 mg PO QDAY #30 tablet oxyCODONE /ACETAMINOPHEN [Percocet 5/325 mg] 1 tab PO Q6H PRN #8 tablet PRN Reason: Pain, Moderate (4-6) NIFEdipine XL [Procardia Xl] 90 mg PO DAILY #30 tablet Pantoprazole [Protonix TAB] 40 mg PO DAILY #30 tablet Calcitriol [Rocaltrol] 0.5 mcg PO QDAY #30 capsule Budesonide/Formoterol Fumarate [Symbicort 160-4.5 Mcg Inhaler] 2 puff IH QAM #30 hfa.aer.ad
[2018-10-01] MEDS ORDERED: NACL 0.9 (PRIMING MACHINE ONLY DIALYSIS) MC ONE (08:33)
[2018-10-01] MEDS: BROVANA NEBU IH SCH (08:37)
[2018-10-01] MEDS: PULMICORT IH SCH (08:37)
--- NOTE | 2018-10-01 11:50 | Progress Note ---
Assessment and Plan - Patient Problems (1) End-stage renal disease (ESRD) Current Visit: Yes Status: Acute Plan to address problem: Chronic kidney disease stage V progressed to end-stage renal disease. Outpatient dialysis at [facility] dialysis has been arranged. Okay to discharge from renal standpoint (2) Hyperkalemia Current Visit: Yes Status: Acute Plan to address problem: Resolved with dialysis. (3) Hypertensive chronic kidney disease with stage 5 chronic kidney disease or end stage renal disease Current Visit: Yes Status: Acute Plan to address problem: Unable to start patient on RYLAND inhibitor because of history of allergy. Follow up blood pressure on current medications. (4) Hypomagnesemia Current Visit: Yes Status: Acute Plan to address problem: Supplement magnesium and follow up levels (5) Metabolic acidosis Current Visit: Yes Status: Acute Plan to address problem: Resolved with dialysis (6) Type 2 diabetes mellitus with diabetic chronic kidney disease Current Visit: Yes Status: Acute Plan to address problem: Blood sugar management by primary attending Subjective Date of service: 10/01/18 Principal diagnosis: ESRD Interval history: Patient seen lying in bed. No new complaints. Finished Dialysis with no problems. No chest pain or shortness of breath. No nausea or vomiting Objective - Exam Narrative Exam: Obese middle-aged -[place] Citizen female lying in bed in no acute distress HEENT: NCAT, pink oral mucous membrane Neck: Supple, no venous distention CVS: S1S2 RRR with no murmur, rub or gallop Chest: Clear to auscultation Abdomen: Protuberant, soft, nontender, no organomegaly, bowel sounds are present Extremities: No edema Neuro: Awake, alert no focal deficits - Vital Signs Vital signs: Vital Signs - 12hr 10/01/18 05:25 Temperature 98.5 F Pulse Rate 89 Respiratory 16 Rate Blood Pressure 166/74 O2 Sat by Pulse 94 Oximetry - Lab 10/01/18 05:51 10/01/18 05:51 Most recent lab results Calcium 8.7 mg/dL (8.4-10.2) 10/01/18 05:51 Magnesium 1.60 mg/dL (1.7-2.3) L 09/29/18 05:31 Medications & Allergies - Medications Allergies/Adverse Reactions: Allergies lisinopril Allergy (Verified 09/26/18 15:30) Swelling Sulfa (Sulfonamide Antibiotics) Allergy (Verified 09/26/18 15:30) Swelling Home Medications: Home Medications Medication Instructions Recorded Confirmed Last Taken Type Lispro Insulin [Humalog] 15 units SUB-Q TID 07/16/18 09/26/18 09/25/18 History Metoprolol Succinate [Toprol Xl] 200 mg PO DAILY 07/16/18 09/26/18 09/26/18 History Ranitidine HCl [Acid Wire Puller] 150 mg PO QHS 07/17/18 09/26/18 09/25/18 History Insulin Glargine,Hum.rec.anlog 37 units SUB-Q HS 09/26/18 09/26/18 Unknown Hist ory [Lantus Solostar] Aspirin [Aspirin BABY CHEW TAB] 81 mg PO QDAY #30 tab.chew 10/01/18 Unknown Rx Atorvastatin Calcium 40 mg PO QDAY #30 tablet 10/01/18 Unknown Rx Budesonide/Formoterol Fumarate 2 puff IH QAM #30 hfa.aer.ad 10/01/18 Unknown Rx [Symbicort 160-4.5 Mcg Inhaler] Calcitriol [Rocaltrol] 0.5 mcg PO QDAY #30 capsule 10/01/18 Unknown Rx Metoprolol Xl [Metoprolol 200 mg PO QDAY #30 tablet 10/01/18 Unknown Rx SUCCINATE ER TAB] NIFEdipine XL [Procardia Xl] 90 mg PO DAILY #30 tablet 10/01/18 Unknown Rx Pantoprazole [Protonix TAB] 40 mg PO DAILY #30 tablet 10/01/18 Unknown Rx hydrALAZINE [Apresoline TAB] 75 mg PO Q8HR #90 tablet 10/01/18 Unknown Rx oxyCODONE /ACETAMINOPHEN [Percocet 1 tab PO Q6H PRN #8 tablet 10/01/18 Unknown Rx 5/325 mg] Active Medications: Generic Name Dose Route Start Last Admin Trade Name Freq PRN Reason Stop Dose Admin Acetaminophen 650 mg 09/26/18 20:21 Tylenol PO Q4H PRN Pain MILD(1-3)/Fever >100.5/CARR Arformoterol Tartrate 15 mcg 09/27/18 08:00 10/01/18 08:37 Brovana Nebu IH Not Given Q12HRT KJ Aspirin 81 mg 09/26/18 21:00 09/30/18 09:44 Baby Aspirin PO 81 mg QDAY KJ Administration Atorvastatin Calcium 40 mg 09/26/18 22:00 09/30/18 21:03 Lipitor PO 40 mg QHS [facility] Administration Budesonide 0.5 mg 09/28/18 17:14 10/01/18 08:37 Pulmicort IH Not Given Q12HRT [facility] Calcitriol 0.5 mcg 09/26/18 21:00 09/30/18 09:45 Rocaltrol PO 0.5 mcg QDAY [facility] Administration Famotidine 20 mg 09/26/18 22:00 09/30/18 21:03 Pepcid PO 20 mg QHS [facility] Administration Heparin Sodium (Porcine) 5,000 unit 09/27/18 10:00 09/30/18 21:03 Heparin SUB-Q 5,000 unit Q12HR KJ Administration Hydralazine HCl 75 mg 09/30/18 22:00 10/01/18 05:50 Apresoline PO 75 mg Q8HR [facility] Administration Hydromorphone HCl 0.5 mg 09/26/18 20:21 Dilaudid IV Q3H PRN Pain , Severe (7-10) Sodium Chloride 100 mls @ 999 mls/hr 09/28/18 07:15 Nacl 0.9% IV MORRIS PRN Hypotension Insulin Glargine 20 units 09/28/18 22:00 09/30/18 21:04 Lantus SUB-Q 20 units QHS [facility] Administration Insulin Human Lispro 0 unit 09/27/18 07:30 09/30/18 21:10 Humalog SUB-Q 4 unit ACHS [facility] Administration Protocol Metoclopramide HCl 5 mg 09/26/18 20:39 09/30/18 06:00 Reglan IV 5 mg Q6H PRN Administration Nausea And Vomiting Metoprolol Succinate 200 mg 09/26/18 21:00 09/30/18 09:43 Toprol Xl PO 200 mg QDAY [facility] Administration Nifedipine 90 mg 09/30/18 13:25 Procardia Xl PO DAILY [facility] Ondansetron HCl 4 mg 09/26/18 20:21 09/27/18 09:45 Zofran IV 4 mg Q8H PRN Administration Nausea And Vomiting Oxycodone/Acetaminophen 1 tab 09/26/18 20:21 10/01/18 05:50 Percocet 5/325 PO 1 tab Q6H PRN Administration Pain, Moderate (4-6) Pantoprazole Sodium 40 mg 09/27/18 10:00 09/30/18 09:44 Protonix PO 40 mg DAILY KJ Administration Sodium Chloride 10 ml 09/26/18 22:00 10/01/18 05:52 Sodium Chloride Flush Syringe 10 Ml IV 10 ml BID KJ Administration Sodium Chloride 10 ml 09/26/18 20:21 Sodium Chloride Flush Syringe 10 Ml IV PRN PRN LINE FLUSH
[2018-10-01] MEDS: TOPROL XL PO SCH (12:19)
[2018-10-01] MEDS: ROCALTROL PO SCH (12:19)
[2018-10-01] MEDS: BABY ASPIRIN PO SCH (12:20)
[2018-10-01 12:23] VITALS: BP 150/75
== END 2018-10-01 16:00 | disposition home or self-care (01) | DRG 674 ==
LOC: ED 08:13 → 3A 11:07
PROVIDERS: ADMIT Internal Medicine; ATTEND Hospitalist
PROC: 0JH63XZ Insertion of Tunneled Vascular Access Device into Chest Subcutaneous Tissue and Fascia, Percutaneous Approach (ICD-10-PCS; principal; 2018-09-26)
PROC: 02HV33Z Insertion of Infusion Device into Superior Vena Cava, Percutaneous Approach (ICD-10-PCS; 2018-09-26)
PROC: B5181ZA Fluoroscopy of Superior Vena Cava using Low Osmolar Contrast, Guidance (ICD-10-PCS; 2018-09-26)
PROC: B543ZZA Ultrasonography of Right Jugular Veins, Guidance (ICD-10-PCS; 2018-09-26)
PROC: 5A1D70Z Performance of Urinary Filtration, Intermittent, Less than 6 Hours Per Day (ICD-10-PCS; 2018-09-26)
PROC: 5A1D70Z Performance of Urinary Filtration, Intermittent, Less than 6 Hours Per Day (ICD-10-PCS; 2018-09-27)
PROC: 5A1D70Z Performance of Urinary Filtration, Intermittent, Less than 6 Hours Per Day (ICD-10-PCS; 2018-09-29)
PROC: 5A1D70Z Performance of Urinary Filtration, Intermittent, Less than 6 Hours Per Day (ICD-10-PCS; 2018-10-01)
DX: N17.9 Acute kidney failure, unspecified (principal); I12.0 Hypertensive chronic kidney disease with stage 5 chronic kidney disease or end stage renal disease; E87.2 Acidosis; I16.1 Hypertensive emergency; E83.51 Hypocalcemia; N18.6 End stage renal disease; N25.81 Secondary hyperparathyroidism of renal origin; E87.5 Hyperkalemia; E83.42 Hypomagnesemia; E11.22 Type 2 diabetes mellitus with diabetic chronic kidney disease; K21.9 Gastro-esophageal reflux disease without esophagitis; E78.5 Hyperlipidemia, unspecified; N25.0 Renal osteodystrophy; Z86.73 Personal history of transient ischemic attack (TIA), and cerebral infarction without residual deficits; Z90.5 Acquired absence of kidney; Z79.4 Long term (current) use of insulin; Z82.49 Family history of ischemic heart disease and other diseases of the circulatory system; Z79.899 Other long term (current) drug therapy; Z79.82 Long term (current) use of aspirin; Z88.2 Allergy status to sulfonamides
CPT/HCPCS: 36415; 36558; 70450; 71046; 76937; 77001; 80048; 80053; 80074; 82962; 83036; 83735; 84484; 85025; 85610; 85670; 85730; 93005; 93010; 94640; G0378; A9270-GY; C1750; C1769; J0360; J0610; J0690; J1170; J1644; J1815; J1940; J2250; J2405; J2765; J3010; J3475; J7030; J7040

== ENCOUNTER 2018-10-09 16:20 | Emergency (ER) | payer MEDICARE ==
[2018-10-09] MEDS ORDERED: D50W (25GM) Syringe IV ONE (16:29)
--- NOTE | 2018-10-09 16:29 | Emergency Department Report ---
Blank Doc - Documentation Documentation: This is a 53-year-old female that presents with dizziness and lightheadedness. Finger stick is 39 in the ED. This initial assessment/diagnostic orders/clinical plan/treatment(s) is/are subject to change based on patient's health status, clinical progression and re-assessment by fellow clinical providers in the ED. Further treatment and workup at subsequent clinical providers discretion. Patient/guardians urged not to elope from the ED as their condition may be serious if not clinically assessed and managed. Initial orders include: 1- Patient sent to MAIN ED for further evaluation and treatment 2- labs 3- 50ml D50 ordered
[2018-10-09 16:59] LABS: Hematocrit 27.7 % (30.3-42.9); Hemoglobin 9.3 gm/dl (10.1-14.3); Mean Corpuscular HGB Conc 34 % (30-34); Mean Corpuscular Volume 92 fl (79-97); Platelet Count 215 K/mm3 (140-440); Red Blood Count 3.03 M/mm3 (3.65-5.03); Red Cell Distribution Width 12.9 % (13.2-15.2)
[2018-10-09 17:17] LABS: Alanine Aminotransferase 37 units/L (7-56); Albumin 3.4 g/dL (3.9-5); BUN/Creatinine Ratio 4; Blood Urea Nitrogen 18 mg/dL (7-17); Calcium 8.2 mg/dL (8.4-10.2); Hemolysis Index 7
[2018-10-09 17:22] LABS: Bilirubin,Direct < 0.2 mg/dL (0-0.2)
[2018-10-09 17:55] LABS: Total Cells Counted 100
[2018-10-09 17:56] LABS: Hypochromasia 1+
[2018-10-09 17:57] LABS: Ovalocytes Few
--- NOTE | 2018-10-09 18:10 | Emergency Department Report ---
HPI - General Chief Complaint: Dizziness Time Seen by Provider: 10/09/18 16:27 - HPI HPI: Room 17 The patient is a 53-year-old female presenting with a chief complaint of hypoglycemia. The patient states earlier today she noticed her glucose was "high" stating it read 198. The patient states she took 10 units of Humalog and then dozed off. The patient states when she awakened she had burning in her legs and felt hot and diaphoretic. Patient states her vision was blurry and she felt dizzy. Patient states the only thing she is eating today includes grits and eggs this morning for breakfast. Patient states she did not have lunch. In the ED the patient was felt to be hypoglycemic with a glucose less than 40 was administered D50. The patient states she now feels a lot better. Patient denies being on any oral hypoglycemics Location: Mental status Duration: [See above] Quality: Hypoglycemic Severity: Less than 40 Modifying factors: [see above] Context: [see above] Mode of transportation: [not driving] ED Past Medical Hx - Past Medical History Hx Hypertension: Yes Hx CVA: Yes Hx Diabetes: Yes Hx Renal Disease: Yes Hx Asthma: Yes - Surgical History Past Surgical History?: Yes Additional Surgical History: cyst removed from ovaries, right nephrectomy secondary to CA - Family History Family history: no significant - Social History Smoking Status: Never Smoker Substance Use Type: None - Medications Home Medications: Home Medications Medication Instructions Recorded Confirmed Last Taken Type Lispro Insulin [Humalog] 15 units SUB-Q TID 07/16/18 09/26/18 09/25/18 History Metoprolol Succinate [Toprol Xl] 200 mg PO DAILY 07/16/18 09/26/18 09/26/18 History Ranitidine HCl [Acid Christmas Bell Ringer] 150 mg PO QHS 07/17/18 09/26/18 09/25/18 History Insulin Glargine,Hum.rec.anlog 37 units SUB-Q HS 09/26/18 09/26/18 Unknown Hi story [Lantus Solostar] Aspirin [Aspirin BABY CHEW TAB] 81 mg PO QDAY #30 tab.chew 10/01/18 Unknown Rx Atorvastatin Calcium 40 mg PO QDAY #30 tablet 10/01/18 Unknown Rx Budesonide/Formoterol Fumarate 2 puff IH QAM #30 hfa.aer.ad 10/01/18 Unknown Rx [Symbicort 160-4.5 Mcg Inhaler] Calcitriol [Rocaltrol] 0.5 mcg PO QDAY #30 capsule 10/01/18 Unknown Rx Metoprolol Xl [Metoprolol 200 mg PO QDAY #30 tablet 10/01/18 Unknown Rx SUCCINATE ER TAB] NIFEdipine XL [Procardia Xl] 90 mg PO DAILY #30 tablet 10/01/18 Unknown Rx Pantoprazole [Protonix TAB] 40 mg PO DAILY #30 tablet 10/01/18 Unknown Rx hydrALAZINE [Apresoline TAB] 75 mg PO Q8HR #90 tablet 10/01/18 Unknown Rx oxyCODONE /ACETAMINOPHEN [Percocet 1 tab PO Q6H PRN #8 tablet 10/01/18 Unknown Rx 5/325 mg] ED Review of Systems ROS: Stated complaint: DIALYSIS/DIABETIC/FEET CEE Other details as noted in HPI Constitutional: diaphoresis Eyes: eye pain, vision change ENT: denies: throat pain Respiratory: no symptoms reported Cardiovascular: denies: chest pain Endocrine: no symptoms reported Gastrointestinal: denies: abdominal pain Genitourinary: denies: dysuria Musculoskeletal: denies: back pain Neurological: denies: headache Physical Exam - Physical Exam Vital Signs: Vital Signs 10/09/18 16:28 Temperature 98.0 F Pulse Rate 65 Respiratory 20 Rate Blood Pressure 155/70 O2 Sat by Pulse 99 Oximetry Physical Exam: GENERAL: The patient is well-developed well-nourished female lying on stretcher not appearing to be in acute distress. [] HEENT: Normocephalic. Atraumatic. Extraocular motions are intact. Patient has moist mucous membranes. NECK: Supple. Trachea midline CHEST/LUNGS: Clear to auscultation. There is no respiratory distress noted. HEART/CARDIOVASCULAR: Regular. There is no tachycardia. There is no gallop rub or murmur. ABDOMEN: Abdomen is soft, nontender. Patient has normal bowel sounds. There is no abdominal distention. SKIN: There is no rash. There is no edema. There is no diaphoresis. NEURO: The patient is awake, alert, and oriented. The patient is cooperative. The patient has no focal neurologic deficits. The patient has normal speech. Cranial nerves II through XII grossly intact, no drift MUSCULOSKELETAL: There is no evidence of acute injury. ED Course Vital Signs 10/09/18 16:28 Temperature 98.0 F Pulse Rate 65 Respiratory 20 Rate Blood Pressure 155/70 O2 Sat by Pulse 99 Oximetry - Reevaluation(s) Reevaluation #1: 10/09/18 19:40 Accu-Chek 114 ED Medical Decision Making - Lab Data Result diagrams: 10/09/18 16:40 10/09/18 16:40 - Differential Diagnosis hypoglycemia Critical care attestation.: If time is entered above; I have spent that time in minutes in the direct care of this critically ill patient, excluding procedure time. ED Disposition Clinical Impression: Hypoglycemia Disposition: DC-01 TO HOME OR SELFCARE Is pt being admited?: No Does the pt Need Aspirin: No Condition: Stable Instructions: Diabetic Hypoglycemia (ED) Additional Instructions: Return to the emergency department immediately should you develop worsening symptoms, fever, inability to tolerate food or liquid or any other concerns. Referrals: PRIMARY CARE, [Primary Care Provider] - 3-5 Days Time of Disposition: 19:40
[2018-10-09 19:27] VITALS: BP 202/101
== END 2018-10-09 20:05 | disposition home or self-care (01) ==
LOC: ED 16:20
DX: E11.649 Type 2 diabetes mellitus with hypoglycemia without coma (principal); I10 Essential (primary) hypertension; J45.909 Unspecified asthma, uncomplicated
CPT/HCPCS: 36415; 80048; 80076; 82962; 85007; 85025; 96374

== ENCOUNTER 2020-10-14 17:40 | Emergency (ER) | payer MEDICARE ==
[2020-10-14 20:55] VITALS: BP 179/70
--- NOTE | 2020-10-14 20:59 | Emergency Department Report ---
ED Female HPI - General Stated complaint: BAD DISCHARGE Time Seen by Provider: 10/14/20 20:42 Source: patient Mode of arrival: Ambulatory Limitations: No Limitations - History of Present Illness Initial comments: pt is a 55 yo female who presents to the ED with c/o clear vaginal discharge that began approximately a week ago. she states it is watery and has a fishy odor. she states that two weeks ago she was having dysuria and her PCP called her in abx for a UTI. she states that the dysuria resolved. she states she then began having the discharge after the abx and her PCP placed her on one tablet of fluconazole. she states that the discharge did not improve. she denies any fever, abd pain, flank pain, pelvic pain, nausea, vomiting, diarrhea. She states that she is sexually active with a new partner and she is concerned for STDs. Past medical history of diabetes, hypertension, asthma, CVA, renal disease, renal cancer. Allergy to lisinopril and sulfa. She states that she has an appointment with her RECEPTIONIST SECRETARY on 10/18/2020. - Related Data Home Medications Medication Instructions Recorded Confirmed Last Taken Lispro Insulin [HumaLOG] 15 units SUB-Q TID 07/16/18 09/26/18 09/25/18 Metoprolol Succinate [Toprol Xl] 200 mg PO DAILY 07/16/18 09/26/18 09/26/18 Ranitidine HCl [Acid Mirror Maker] 150 mg PO QHS 07/17/18 09/26/18 09/25/18 Insulin Glargine,Hum.rec.anlog 37 units SUB-Q HS 09/26/18 09/26/18 Unknown [Lantus Solostar] Previous Rx's Medication Instructions Recorded Last Taken Type Aspirin [Aspirin BABY CHEW TAB] 81 mg PO QDAY #30 tab.chew 10/01/18 Unknown Rx Atorvastatin Calcium 40 mg PO QDAY #30 tablet 10/01/18 Unknown Rx Budesonide/Formoterol Fumarate 2 puff IH QAM #30 hfa.aer.ad 10/01/18 Unknown Rx [Symbicort 160-4.5 Mcg Inhaler] Metoprolol Xl [Metoprolol 200 mg PO QDAY #30 tablet 10/01/18 Unknown Rx SUCCINATE ER TAB] NIFEdipine XL [Procardia Xl] 90 mg PO DAILY #30 tablet 10/01/18 Unknown Rx Pantoprazole [Protonix TAB] 40 mg PO DAILY #30 tablet 10/01/18 Unknown Rx calcitrioL [Rocaltrol] 0.5 mcg PO QDAY #30 capsule 10/01/18 Unknown Rx hydrALAZINE [Apresoline TAB] 75 mg PO Q8HR #90 tablet 10/01/18 Unknown Rx oxyCODONE /ACETAMINOPHEN [Percocet 1 tab PO Q6H PRN #8 tablet 10/01/18 Unknown Rx 5/325 mg] Doxycycline Hyclate [Doxycycline 100 mg PO BID 7 Days #14 tab 10/14/20 Unknown Rx Hyclate TAB] metroNIDAZOLE [Flagyl] 500 mg PO BID 7 Days #14 tab 10/14/20 Unknown Rx Allergies Allergy/AdvReac Type Severity Reaction Status Date / Time lisinopril Allergy Swelling Verified 09/26/18 15:30 Sulfa (Sulfonamide Allergy Swelling Verified 09/26/18 15:30 Antibiotics) ED Review of Systems ROS: Stated complaint: BAD DISCHARGE Other details as noted in HPI Comment: All other systems reviewed and negative ED Past Medical Hx - Past Medical History Hx Hypertension: Yes Hx CVA: Yes Hx Congestive Heart Failure: No Hx Diabetes: Yes Hx Renal Disease: Yes Hx Asthma: Yes Hx COPD: No - Surgical History Additional Surgical History: cyst removed from ovaries, right nephrectomy secondary to CA - Social History Smoking Status: Never Smoker Substance Use Type: None - Medications Home Medications: Home Medications Medication Instructions Recorded Confirmed Last Taken Type Lispro Insulin [HumaLOG] 15 units SUB-Q TID 07/16/18 09/26/18 09/25/18 History Metoprolol Succinate [Toprol Xl] 200 mg PO DAILY 07/16/18 09/26/18 09/26/18 History Ranitidine HCl [Acid Mirror Maker] 150 mg PO QHS 07/17/18 09/26/18 09/25/18 History Insulin Glargine,Hum.rec.anlog 37 units SUB-Q HS 09/26/18 09/26/18 Unknown History [Lantus Solostar] Aspirin [Aspirin BABY CHEW TAB] 81 mg PO QDAY #30 tab.chew 10/01/18 Unknown Rx Atorvastatin Calcium 40 mg PO QDAY #30 tablet 10/01/18 Unknown Rx Budesonide/Formoterol Fumarate 2 puff IH QAM #30 hfa.aer.ad 10/01/18 Unknown Rx [Symbicort 160-4.5 Mcg Inhaler] Metoprolol Xl [Metoprolol 200 mg PO QDAY #30 tablet 10/01/18 Unknown Rx SUCCINATE ER TAB] NIFEdipine XL [Procardia Xl] 90 mg PO DAILY #30 tablet 10/01/18 Unknown Rx Pantoprazole [Protonix TAB] 40 mg PO DAILY #30 tablet 10/01/18 Unknown Rx calcitrioL [Rocaltrol] 0.5 mcg PO QDAY #30 capsule 10/01/18 Unknown Rx hydrALAZINE [Apresoline TAB] 75 mg PO Q8HR #90 tablet 10/01/18 Unknown Rx oxyCODONE /ACETAMINOPHEN [Percocet 1 tab PO Q6H PRN #8 tablet 10/01/18 Unknown Rx 5/325 mg] Doxycycline Hyclate [Doxycycline 100 mg PO BID 7 Days #14 tab 10/14/20 Unknown Rx Hyclate TAB] metroNIDAZOLE [Flagyl] 500 mg PO BID 7 Days #14 tab 10/14/20 Unknown Rx ED Physical Exam - General Limitations: No Limitations General appearance: alert, in no apparent distress - Head Head exam: Present: atraumatic, normocephalic - Eye Eye exam: Present: normal appearance - ENT ENT exam: Present: mucous membranes moist - Respiratory Respiratory exam: Present: normal lung sounds bilaterally. Absent: respiratory distress, wheezes, rales, rhonchi, stridor, chest wall tenderness, accessory muscle use, decreased breath sounds, prolonged expiratory - Cardiovascular Cardiovascular Exam: Present: regular rate, normal rhythm, normal heart sounds. Absent: systolic murmur, diastolic murmur, rubs, gallop - GI/Abdominal GI/Abdominal exam: Present: soft, normal bowel sounds. Absent: distended, tenderness, guarding, rebound, rigid - Back Exam Back exam: Absent: CVA tenderness (R), CVA tenderness (L) - Neurological Exam Neurological exam: Present: alert, oriented X3 - Psychiatric Psychiatric exam: Present: normal affect, normal mood - Skin Skin exam: Present: warm, dry, intact ED Course Vital Signs 10/14/20 20:26 Temperature 98.4 F Pulse Rate 72 Respiratory 18 Rate Blood Pressure 179/70 O2 Sat by Pulse 94 Oximetry ED Medical Decision Making - Medical Decision Making pt is a 55 yo female who presents to the ED with c/o clear vaginal discharge that began approximately a week ago. she states it is watery and has a fishy odor. she states that two weeks ago she was having dysuria and her PCP called her in abx for a UTI. she states that the dysuria resolved. she states she then began having the discharge after the abx and her PCP placed her on one tablet of fluconazole. she states that the discharge did not improve. she denies any fever, abd pain, flank pain, pelvic pain, nausea, vomiting, diarrhea. She states that she is sexually active with a new partner and she is concerned for STDs. Past medical history of diabetes, hypertension, asthma, CVA, renal disease, renal cancer. Allergy to lisinopril and sulfa. She states that she has an appointment with her RECEPTIONIST SECRETARY on 10/18/2020. No abdominal tenderness on exam, no guarding, no rebound, no rigidity, normal bowel sounds, no peritoneal signs. UA shows evidence of significant UTI. Ordered for patient to have ceftriaxone IM. Nurse attempted to find patient for IM injection and for discharge paperwork. It appears patient has eloped from the emergency department prior to receiving IM antibiotics and prior to receiving discharge paperwork with prescriptions. I attempted to call number for patient and was advised it was the wrong number. I then called number listed for patient's daughter and was again advised that the was the wrong number. Critical care attestation.: If time is entered above; I have spent that time in minutes in the direct care of this critically ill patient, excluding procedure time. ED Disposition Clinical Impression: UTI (urinary tract infection) Qualifiers: Urinary tract infection type: acute cystitis Hematuria presence: with hematuria Qualified Code(s): N30.01 - Acute cystitis with hematuria Vaginitis Qualifiers: Chronicity: acute Qualified Code(s): N76.0 - Acute vaginitis Disposition: ELOPED Is pt being admited?: No Does the pt Need Aspirin: No Condition: Undetermined Instructions: Vaginitis, [id number], Urinary Tract Infection, Adult, [id number] Additional Instructions: Please take medication as prescribed. Increase your water intake. Please keep your appointment with your RECEPTIONIST SECRETARY, please have your urine retested by your RECEPTIONIST SECRETARY office, these have a full STD panel performed by her RECEPTIONIST SECRETARY. Have any partner tested and treated as well. Avoid sexual intercourse. Return to emergency room for new or symptoms. Prescriptions: Doxycycline Hyclate [Doxycycline Hyclate TAB] 100 mg PO BID 7 Days #14 tab metroNIDAZOLE [Flagyl] 500 mg PO BID 7 Days #14 tab Referrals: PRIMARY CARE,MD [Primary Care Provider] - 3-5 Days your, referral coordinator [Other] - 3-5 Days Time of Disposition: 22:05 Print Language: KITTITIAN
[2020-10-14 22:01] LABS: Bacteria,Urine 2+ /HPF (Negative); Bilirubin,Urine NEG (Negative); Blood,Urine SM (Negative); Color,Urine Yellow (Yellow); Mucus,Urine FEW /HPF; Protein,Urine >500 mg/dL (Negative)
[2020-10-14] MEDS ORDERED: LIDOCAINE-MPF (1%) 10 MG/1 ML VIAL 5 ML INFILTRATI ONE (22:03)
== END 2020-10-14 22:00 | disposition left against medical advice (07) ==
LOC: ED 17:40
DX: N39.0 Urinary tract infection, site not specified (principal); N76.0 Acute vaginitis; I10 Essential (primary) hypertension; E11.9 Type 2 diabetes mellitus without complications; J45.909 Unspecified asthma, uncomplicated; Z98.890 Other specified postprocedural states; Z79.4 Long term (current) use of insulin; Z79.899 Other long term (current) drug therapy; Z88.2 Allergy status to sulfonamides; Z88.8 Allergy status to other drugs, medicaments and biological substances
CPT/HCPCS: 81001; 99283; J0696